=== PATIENT | male | born 1960 | race Caucasian/White ===

== ENCOUNTER 2016-11-20 16:22 | Observation (INO) ==
--- NOTE | 2016-11-20 16:52 | Emergency Department Note ---
Disposition Clinical Impression: Cellulitis of foot Disposition: Admitted As Inpatient Condition: Good Referrals: Jose G Leal MD [Primary Care Provider] - Forms: ED Satisfaction Letter Time of Disposition: 18:40 Extremity Problem HPI - General Chief complaint: ED Extremity Problem,Nontraumatic Stated complaint: right foot problem Time Seen by Provider: 11/20/16 16:41 Source: patient Mode of arrival: ambulatory Limitations: no limitations Nursing Notes Reviewed: Yes Vital Signs Reviewed: Yes - History of Present Illness HPI Narrative: 56-year-old whose had a partial amputation of the right foot who comes in with drainage and redness to the foot and ulceration on the sole of the foot. He spoke to Dr. Gomez who sent him in for evaluation. Pt Subjective Complaint: extremity pain, extremity swelling Onset (ago): hour(s) Consistency: constant Injury Location: right Pain Scale: 6 Improves with: nothing Worsens with: weight bearing - Related Data Home Medications Medication Instructions Recorded Confirmed Ibuprofen/Pseudoephedrine HCl 1 tab PO TID 12/27/15 05/22/16 [Advil Cold & Sinus Caplet] Lactose-Reduced Food [Ensure 1 bottle PO TID 12/27/15 05/22/16 Active Clear] Multivitamin [Multi-Day Vitamins] 1 each PO DAILY 01/10/16 05/22/16 Ibuprofen [Advil] 800 mg PO Q6H PRN 02/01/16 05/22/16 Linagliptin [Tradjenta] 5 mg PO DAILY 02/01/16 05/22/16 metFORMIN [Glucophage] 1,000 mg PO BIDWM 02/01/16 05/22/16 Gabapentin [Neurontin] 300 mg PO TID 05/15/16 05/22/16 Insulin Glargine [Lantus] 20 unit SQ HS 05/15/16 05/22/16 Previous Rx's Medication Instructions Recorded Insulin LISPRO [HumaLOG] 3 units SQ TIDWM #1 vial 01/04/16 Ferrous Sulfate 325 mg PO BIDWM #60 tablet 05/27/16 OxyCODONE/APAP 5/325 [Percocet 1 each PO Q6HR PRN #28 tablet 05/27/16 5/325 MG] Vancomycin HCl in Dextrose 5 % 1.25 gm IV Q12HR #1 mls 05/27/16 [Vancomycin-D5w 1.25 Gram/250Ml] Clindamycin HCl [Cleocin HCl] 300 mg PO TID #15 cap 08/09/16 Allergies Allergy/AdvReac Type Severity Reaction Status Date / Time No Known Allergies Allergy Verified 02/01/16 10:56 All systems ED: reviewed and negative except as stated. Constitutional: Denies: fever, chills, weakness, weight change Eyes: Denies: eye pain, eye discharge, vision change ENT ED: Denies: ear pain, throat pain, dental pain, hearing loss, epistaxis, congestion, dysphagia Cardiovascular: Denies: chest pain, palpitations, dyspnea on exertion, edema, syncope Respiratory: Denies: cough, dyspnea, wheezes, hemoptysis, stridor Gastrointestinal: Denies: abdominal pain, nausea, vomiting, diarrhea, constipation, hematemesis, melena, hematochezia Genitourinary: Denies: urgency, dysuria, frequency, hematuria Musculoskeletal: Denies: back pain, neck pain, arthralgia, myalgia Integumentary: Denies: rash, abrasion, lesions Neurological: Denies: headache, weakness, numbness, paresthesias, confusion, abnormal gait, vertigo Psychiatric: Denies: anxiety, depression, suicidal thoughts, homicidal thoughts , auditory hallucinations, visual hallucinations Endocrine: Denies: fatigue Hematological/Lymphatic: Denies: easy bleeding, easy bruising Allergic/Immunologic: Denies: facial swelling, urticaria Past Medical History - Past Medical History Medical history: Reports: diabetes, other Surgical history: Reports: other Psychiatric history: Reports: no psych history - Social History Smoking Status: Current every day smoker Smokeless Tobacco Status: No Alcohol use: Reports: none Drug use: Reports: none Physical Exam - General Limitations: no limitations General appearance: alert, in no apparent distress - Head Head exam: atraumatic, normocephalic, normal inspection - Eye Eye exam: Present: normal appearance, PERRL, EOMI - ENT ENT exam: normal exam - Neck Neck exam: Present: normal inspection, full ROM, trachea midline - Chest Chest inspection: Present: normal inspection, symmetric chest wall rise - Respiratory Respiratory exam: Present: normal lung sounds bilaterally - Cardiovascular Cardiovascular exam: Present: regular rate, normal rhythm, normal heart sounds - Abdominal Exam Abdominal exam: Present: soft, Non-Tender. Absent: tenderness, distention, guarding, rebound, rigidity - Expanded Lower Extremity Exam Foot/toe exam: Present: tenderness, swelling, erythema, other (Urgent ulceration on the sole of the foot with purulent drainage) Neurovascular/Tendon exam: Absent: pulse deficit Gait: antalgic - Back Exam Back exam: Present: normal inspection, full ROM. Absent: tenderness - Neurological Exam Neurological exam: Present: alert - Psychiatric Psychiatric exam: Present: normal affect, normal mood - Skin Skin exam: Present: warm, dry, intact, normal color Course - Reevaluation(s) Reevaluation #1: 56-year-old diabetic who has worsening pain in his foot with a large ulcer and the purulent drainage. White count is normal sedimentation rates elevated x-ray shows no osteo-consultation obtained with podiatry will start him on IV vancomycin and possible surgical intervention. Time: 18:39 - Consultations Consultation #1: Discussed with Dr. Gomez who wants the patient admitted and he will likely need surgical debridement Time: 17:52 Consultation #2: Discussed with Araceli Singer, it. Time: 18:38 Vital Signs Temperature 98.3 F 11/20/16 16:33 Pulse Rate 92 11/20/16 16:33 Respiratory Rate 16 11/20/16 16:33 Blood Pressure 130/66 11/20/16 16:33 O2 Sat by Pulse Oximetry 96 11/20/16 16:33 Temperature 98.3 F 11/20/16 16:33 Pulse Rate 92 11/20/16 16:33 Respiratory Rate 16 11/20/16 16:33 Blood Pressure 130/66 11/20/16 16:33 O2 Sat by Pulse Oximetry 96 11/20/16 16:33 Oxygen Delivery Oxygen Delivery Room Air Extremity Problem, Nontraumati - Lab Data Lab results reviewed: Yes I reviewed the patient's lab results. Result diagrams: 11/20/16 17:10 11/20/16 17:10 Lab Results 11/20/16 11/20/16 11/20/16 Range/Units 17:10 17:10 17:10 WBC 8.3 (4.3-11.1) K/mcL RBC 4.25 (4.19-5.50) M/mcL Hgb 13.4 (12.9-16.9) g/dL Hct 40.5 (37.5-50.1) % MCV 95.3 (83.0-100.0) fL MCH 31.5 (28.0-33.3) pg MCHC 33.1 (31.6-35.5) g/dL RDW 12.6 (11.5-14.5) % Plt Count 228 (140-400) K/mcL MPV 11.0 (9.4-12.4) fL Immature Gran % 0.5 (0-4) % Seg Neutrophils % 57.4 % Lymphocytes % 25.1 % Monocytes % 14.1 % Eosinophils % 2.5 % Basophils % 0.4 % Neutrophils # 4.8 (1.6-8.9) K/mcL Lymphocytes # 2.1 (0.6-4.6) K/mcL Monocytes # 1.2 (0.0-1.3) K/mcL Eosinophils # 0.2 (0.0-0.6) K/mcL Basophils # 0.0 (0.0-0.2) K/mcL ESR 40 H (0-10) mm/hr Sodium 139 (136-145) mEq/L Potassium 3.9 (3.5-4.5) mEq/L Chloride 103 (98-109) mEq/L Carbon Dioxide 32 H (19-29) mEq/L BUN 18 (8-26) mg/dL Creatinine 0.81 (0.72-1.25) mg/dL Est GFR ( Amer) > 60 (> 60) Est GFR (Non-Af Amer) > 60 (> 60) BUN/Creatinine Ratio 22 (6-26) Glucose 151 H (70-99) mg/dL Calculated Osmolality 293 (280-300) Calcium 9.7 (8.6-10.8) mg/dL - Radiology Data Radiology results reviewed: Yes I reviewed the patient's radiology results. Foot X-Ray 11/20/16 16:50 IMPRESSION: No evidence of current osteomyelitis. Postsurgical changes are unchanged. D/ / Abel Diaz MD / Abel Diaz MD Interpreting Provider: Abel Diaz MD
[2016-11-20 17:41] LABS: Basophils % 0.4 %; Eosinophils # 0.2 K/mcL (0.0-0.6); Eosinophils % 2.5 %; Hematocrit 40.5 % (37.5-50.1); Hemoglobin 13.4 g/dL (12.9-16.9); Immature Granulocytes % 0.5 % (0-4); Lymphocytes # 2.1 K/mcL (0.6-4.6); Lymphocytes % 25.1 %; Mean Corpuscular HGB Conc 33.1 g/dL (31.6-35.5); Mean Corpuscular Hemoglobin 31.5 pg (28.0-33.3); Mean Corpuscular Volume 95.3 fL (83.0-100.0); Monocytes # 1.2 K/mcL (0.0-1.3); Monocytes % 14.1 %; Neutrophils # 4.8 K/mcL (1.6-8.9); Platelet Count 228 K/mcL (140-400); Red Blood Count 4.25 M/mcL (4.19-5.50); Red Cell Distribution Width 12.6 % (11.5-14.5); Segmented Neutrophils % 57.4 %
[2016-11-20 17:52] LABS: BUN/Creatinine Ratio 22 (6-26); Blood Urea Nitrogen 18 mg/dL (8-26); Calcium 9.7 mg/dL (8.6-10.8); Carbon Dioxide 32 mEq/L (19-29); Chloride 103 mEq/L (98-109); Glucose 151 mg/dL (70-99); Osmolality,Calculated 293 (280-300); Potassium 3.9 mEq/L (3.5-4.5); Sodium 139 mEq/L (136-145); eGFR For African Americans > 60 (> 60); eGFR For Non-African Americans > 60 (> 60)
[2016-11-20] MEDS ORDERED: Vancomycin 1,000 MG in D5% in Water 250 ML IVPB ONE (18:38)
[2016-11-21] MEDS ORDERED: *HR* Morphine 2 MG/ML SYRINGE IVP PRN (00:03)
[2016-11-21] MEDS: *HR* HYDROcodone/Acet 5/325 mg TABLET PO PRN ×2 (00:33→15:07)
[2016-11-21] MEDS ORDERED: 0.9 % Sodium Chloride 1,000 ML ONE (04:18)
[2016-11-21] MEDS ORDERED: *HR* Dextrose 50 % in Water (Syg) 50 ML SYRINGE IVP PRN (06:11)
[2016-11-21] MEDS ORDERED: D5% in Water 1,000 ML IVC PRN (06:11)
[2016-11-21] MEDS ORDERED: Dextrose Gel 15 GM PO PRN ×2 (06:11)
[2016-11-21] MEDS ORDERED: Acetaminophen 325 MG TABLET PO PRN (06:13)
[2016-11-21] MEDS ORDERED: Ondansetron 4 MG/2 ML VIAL IVP PRN (06:13)
[2016-11-21] MEDS ORDERED: 0.9 % Sodium Chloride 1,000 ML IVC SCH (06:15)
[2016-11-21] MEDS ORDERED: *HR* Heparin 5,000 UNIT/ML VIAL SQ SCH (06:15)
[2016-11-21 06:40] LABS: Alanine Aminotransferase 15 Units/L (0-55); Albumin 3.1 g/dL (3.5-5.0); Alkaline Phosphatase 67 Units/L (38-126); Aspartate Amino Transferase 16 Units/L (5-34); BUN/Creatinine Ratio 14 (6-26); Bilirubin,Total 0.5 mg/dL (0.2-1.2); Blood Urea Nitrogen 12 mg/dL (8-26); Carbon Dioxide 29 mEq/L (19-29); Chloride 103 mEq/L (98-109); Globulin 3.2 g/dL (2.4-3.5); Glucose 206 mg/dL (70-99); Magnesium 1.7 mg/dL (1.6-2.6); Osmolality,Calculated 288 (280-300); Potassium 3.8 mEq/L (3.5-4.5); Sodium 136 mEq/L (136-145); Total Protein 6.3 g/dL (6.0-8.3); eGFR For African Americans > 60 (> 60); eGFR For Non-African Americans > 60 (> 60)
[2016-11-21 06:47] LABS: Activated Partial Thrombo Time 58.2 Seconds (26.0-36.0); Prothrombin Time 10.6 Seconds (9.4-12.1)
[2016-11-21 06:51] LABS: Basophils % 0.3 %; Eosinophils # 0.3 K/mcL (0.0-0.6); Hematocrit 36.5 % (37.5-50.1); Hemoglobin 12.2 g/dL (12.9-16.9); Immature Granulocytes % 0.4 % (0-4); Lymphocytes # 1.8 K/mcL (0.6-4.6); Lymphocytes % 23.6 %; Mean Corpuscular HGB Conc 33.4 g/dL (31.6-35.5); Mean Corpuscular Hemoglobin 32.1 pg (28.0-33.3); Mean Corpuscular Volume 96.1 fL (83.0-100.0); Mean Platelet Volume 11.5 fL (9.4-12.4); Monocytes # 1.1 K/mcL (0.0-1.3); Monocytes % 15.2 %; Neutrophils # 4.3 K/mcL (1.6-8.9); Platelet Count 198 K/mcL (140-400); Red Cell Distribution Width 12.7 % (11.5-14.5); Segmented Neutrophils % 56.5 %
[2016-11-21] MEDS ORDERED: Vancomycin 1,000 MG in D5% in Water 250 ML IVPB SCH ×2 (07:00)
[2016-11-21] MEDS: Insulin LISPRO 300 UNITS/3 ML VIAL SQ SCH ×2 (07:04→12:08)
[2016-11-21] MEDS ORDERED: Piperacillin/Tazobactam 3.375 GM in D5% in Water (Mini-Bag+) 100 ML IVPB SCH (08:00)
[2016-11-21 09:52] LABS: Hemoglobin A1C 6.3 %
[2016-11-21] MEDS ORDERED: *HR* OxyCODONE/APAP 5/325 TABLET PO PRN (12:18)
[2016-11-21] MEDS ORDERED: (Linagliptin [Tradjenta] 5 MG) PO SCH (12:30)
[2016-11-21] MEDS ORDERED: Gabapentin 300 MG CAPSULE PO SCH (15:00)
[2016-11-21 15:29] VITALS: BP 123/85
--- NOTE | 2016-11-21 16:01 | Podiatry Consult Note ---
Date of Encounter: 11/21/16 Time of Encounter: 07:00 Assessment and Plan (1) Cellulitis Current visit: No Status: Acute Assessment: #1 diabetic foot ulcer with associated cellulitis of the right foot and leg #2 diabetes with neuropathy #3 multiple comorbidities as outlined in history #4 Cellulitis essentially resolved with 24 hours of intravenous antibiotics. Wound is clean and dry without evidence of necrosis or regression. Plan: #1 we will maintain antibiotic therapy for 14 days postdischarge with oral agents #2 begin wound care with Santyl ointment after cleansing ulcer with soap and water. Apply Santyl twice a day under a dry sterile dressing and use Darco offloading shoe #3 follow-up wound care clinic within 5 days of discharge next November 27 Qualifiers: Site of cellulitis: extremity Site of cellulitis of extremity: lower extremity Laterality: right Qualified Code(s): L03.115 - Cellulitis of right lower limb History of Present Illness Chief complaint: Foot ulcer right HPI: Mr. Escobar is a 56 year old male who contacted my office earlier in the day on November 20. He stated he had a wound on his right foot with increasing redness and drainage he was instructed to present to the wound care clinic yesterday he did not he proceeded to the emergency department from where he was admitted for intravenous antibiotics because of obvious cellulitis and diabetic foot ulcer. Given his history of previous amputation of #1 toe number to tell with the right foot certainly is high risk for complication and limb loss. The patient states that his foot was red for at least a week prior to presenting. He did not complain of chest pain nausea vomiting fever or chills but certainly with his medical history warrants admission because of the wound and its associated infectious process. Past Med Surg Social Fam HX - Past Medical History Medical history: diabetes, other Psychiatric history: no psych history - Past Surgical History Surgical History: other (Amputation of toe #1 and 2 and respective metatarsals) - Social History Smoking Status: Current every day smoker Smokeless Tobacco Status: No Alcohol use: none Drug use: none - Family History Mother Name: jacklyn escobar Living Status: Age at : 83 Cause of : infection Hx Family Cardiac Disorders: Yes Hx Family Cancer: Yes (skin cancer) Hx Family Endocrine Disorder: Yes Medications and Allergies Ibuprofen/Pseudoephedrine HCl [Advil Cold & Sinus Caplet] 1 tab PO TID PRN 12/26 [History] Multivitamin [Multi-Day Vitamins] 1 each PO DAILY 01/10/16 [History] Linagliptin [Tradjenta] 5 mg PO DAILY 02/01/16 [History] metFORMIN [Glucophage] 500 mg PO BIDWM 02/01/16 [History] Gabapentin [Neurontin] 300 mg PO TID 05/15/16 [History] Insulin Glargine [Lantus] 12 unit SQ HS 05/15/16 [History] OxyCODONE/APAP 5/325 [Percocet 5/325 MG] 1 each PO Q6HR PRN #28 tablet 05/27/16 [Rx] Insulin ASPART [NovoLOG] 0 unit SQ TIDWM 11/20/16 [History] Lactose-Reduced Food [Ensure High Protein] 1 bottle PO TIDWM 11/20/16 [History] Amoxicillin/Clavulanate [Augmentin] 875 mg PO BIDWM #20 tablet 11/21/16 [Rx] Allergies No Known Allergies Allergy (Verified 02/01/16 10:56) All Systems Reviewed: A 10-system review of systems was performed and is negative for pertinent findings except as documented above in the HPI. Review of systems: Patient does not complain of nausea vomiting fever chills, no bowel or bladder dysfunction, no chest pain or shortness of breath. Physical Exam - Constitutional Vitals: Temp Pulse Resp BP Pulse Ox 97.9 F 67 14 123/85 96 11/21/16 15:24 11/21/16 15:24 11/21/16 15:24 11/21/16 15:24 11/21/16 15:24 General appearance: average body habitus, no acute distress - Eye Eye exam: Present: PERRL - Cardiovascular Additional comments: Pedal pulses are palpable but diminished 1/4 DP and PT bilaterally. Skin warm to touch. No cyanosis of digits no pallor and elevation of rubor on dependency and no gross edema. - Extremities Exam Additional comments: History of amputation of toe #1 #2 with respective metatarsals. We see prominent third metatarsal with associated superficial ulceration on the plantar aspect of the third MTPJ. Cellulitis is resolving dramatically with the use of intravenous antibiotics. - Neurological Exam Additional comments: Loss of protective sensation from toes to tibia bilaterally. Loss of epicritic sensation loss of vibratory sensation secondary to diabetes. No spasticity no rigidity no flaccidity. Babinski's absent clonus is negative. DTR Achilles and patella are equal and symmetrical graded 0/4 - Skin Additional comments: We observe a superficial ulceration measuring approximately 2.5 cm in length 2.0 cm in width 0.2 cm in depth dry hyperkeratotic lesion with resolving erythema periwound tissue. Edema has resolved.. Wound with no tunneling or sinus tract no undermining. No odor no purulence no necrosis no ascending lymphangitis Results - Labs Result Diagrams: 11/21/16 05:08 11/21/16 05:08 Labs: Abnormal lab results RBC 3.80 M/mcL (4.19-5.50) L 11/21/16 05:08 Hgb 12.2 g/dL (12.9-16.9) L 11/21/16 05:08 Hct 36.5 % (37.5-50.1) L 11/21/16 05:08 ESR 40 mm/hr (0-10) H 11/20/16 17:10 APTT 58.2 Seconds (26.0-36.0) H 11/21/16 05:08 Glucose 206 mg/dL (70-99) H 11/21/16 05:08 POC Glucose 203 (58-89) H 11/20/16 20:22 Hemoglobin A1c 6.3 % (-5.6) H 11/21/16 05:08 Albumin 3.1 g/dL (3.5-5.0) L 11/21/16 05:08 Albumin/Globulin Ratio 1.0 (1.1-2.2) L 11/21/16 05:08 H & H 11/21/16 Range/Units 05:08 Hgb 12.2 L (12.9-16.9) g/dL Hct 36.5 L (37.5-50.1) % All other labs normal. - Diagnostic results Ankle/Foot x-ray: image reviewed Consult Discharge Plan - Plan Additional Instructions: #1 cleansing right foot wound with soap and water twice a day #2 apply Santyl ointment to wound cover with 4 x 4 and Kerlix twice a day #3 use Darco offloading shoe at all times #4 take all antibiotics as prescribed #5 follow-up with Dr. Gomez wound care clinic 11/27/2016 Referrals: Jose G Leal MD [Primary Care Provider] - Prescriptions: Amoxicillin/Clavulanate [Augmentin] 875 mg PO BIDWM #20 tablet
--- NOTE | 2016-11-21 16:19 | Discharge Summary ---
Date of Encounter: 11/21/16 Time of Encounter: 16:17 - Discharge Diagnosis (1) Cellulitis Priority: Primary Status: Acute Qualifiers: Site of cellulitis: extremity Site of cellulitis of extremity: lower extremity Laterality: right Qualified Code(s): L03.115 - Cellulitis of right lower limb - Discharge Medications Prescriptions: Amoxicillin/Clavulanate [Augmentin] 875 mg PO BIDWM #20 tablet Home Medications: Ibuprofen/Pseudoephedrine HCl [Advil Cold & Sinus Caplet] 1 tab PO TID PRN 12/26 [History] Multivitamin [Multi-Day Vitamins] 1 each PO DAILY 01/10/16 [History] Linagliptin [Tradjenta] 5 mg PO DAILY 02/01/16 [History] metFORMIN [Glucophage] 500 mg PO BIDWM 02/01/16 [History] Gabapentin [Neurontin] 300 mg PO TID 05/15/16 [History] Insulin Glargine [Lantus] 12 unit SQ HS 05/15/16 [History] OxyCODONE/APAP 5/325 [Percocet 5/325 MG] 1 each PO Q6HR PRN #28 tablet 05/27/16 [Rx] Insulin ASPART [NovoLOG] 0 unit SQ TIDWM 11/20/16 [History] Lactose-Reduced Food [Ensure High Protein] 1 bottle PO TIDWM 11/20/16 [History] Amoxicillin/Clavulanate [Augmentin] 875 mg PO BIDWM #20 tablet 11/21/16 [Rx] Allergies/Adverse Reactions: Allergies No Known Allergies Allergy (Verified 02/01/16 10:56) Labs on day of discharge: Labs from last 24 hours 11/21/16 11/21/16 11/21/16 05:08 05:08 05:08 WBC RBC Hgb Hct MCV MCH MCHC RDW Plt Count MPV Immature Gran % Seg Neutrophils % Lymphocytes % Monocytes % Eosinophils % Basophils % Neutrophils # Lymphocytes # Monocytes # Eosinophils # Basophils # PT 10.6 INR 1.0 APTT 58.2 H Sodium 136 Potassium 3.8 Chloride 103 Carbon Dioxide 29 BUN 12 Creatinine 0.84 Est GFR ( Amer) > 60 Est GFR (Non-Af Amer) > 60 BUN/Creatinine Ratio 14 Glucose 206 H POC Glucose Est Mean Plasma Glucose 134 Hemoglobin A1c 6.3 H Calculated Osmolality 288 Calcium 9.0 Magnesium 1.7 Total Bilirubin 0.5 AST 16 ALT 15 Alkaline Phosphatase 67 Serum Total Protein 6.3 Albumin 3.1 L Globulin 3.2 Albumin/Globulin Ratio 1.0 L 11/21/16 11/20/16 05:08 20:22 WBC 7.5 RBC 3.80 L Hgb 12.2 L Hct 36.5 L MCV 96.1 MCH 32.1 MCHC 33.4 RDW 12.7 Plt Count 198 MPV 11.5 Immature Gran % 0.4 Seg Neutrophils % 56.5 Lymphocytes % 23.6 Monocytes % 15.2 Eosinophils % 4.0 Basophils % 0.3 Neutrophils # 4.3 Lymphocytes # 1.8 Monocytes # 1.1 Eosinophils # 0.3 Basophils # 0.0 PT INR APTT Sodium Potassium Chloride Carbon Dioxide BUN Creatinine Est GFR ( Amer) Est GFR (Non-Af Amer) BUN/Creatinine Ratio Glucose POC Glucose 203 H Est Mean Plasma Glucose Hemoglobin A1c Calculated Osmolality Calcium Magnesium Total Bilirubin AST ALT Alkaline Phosphatase Serum Total Protein Albumin Globulin Albumin/Globulin Ratio Date of admission: 11/20/16 19:01 Primary care physician: Jose G Leal Consults: 11/21/16 06:17 Consult to Vacuum Technician [CONS] Routine Comment: Reason for Consult: . Discharging clinician: yDlon Gomez Anticipated date of discharge: 11/21/16 - Patient Status Disposition: Home, Self-Care Condition: Good Functional capacity at discharge: independent ambulation (Must use OrthoWedge shoe to ambulate) Overall status at discharge: patient is progressing back to baseline - Discharge Instructions Follow Up With: Jose G Leal MD [Primary Care Provider] - Additional Instructions: #1 cleansing right foot wound with soap and water twice a day #2 apply Santyl ointment to wound cover with 4 x 4 and Kerlix twice a day #3 use Darco offloading shoe at all times #4 take all antibiotics as prescribed #5 follow-up with Dr. Gomez wound care clinic 11/27/2016 - Diet and Activity Activity: return to work once cleared by your PCP/specialist Diet: diabetic diet - Hospital Course Hospital course: Mr. Escobar is a 56 year old male - Time Spent with Patient Total time spent providing and/or coordinating discharge services: Less than 30 minutes Specific discharge activities: Must use OrthoWedge shoe at all times to ambulate
--- NOTE | 2016-11-21 16:22 | Event Note ---
Date of Encounter: 11/21/16 Time of Encounter: 16:20 Pt did refuse to see any hospitalist. He wanted to seen by fellmongery worker Dr. Gomez only. Spoke to Dr. Gomez, who is discharging this pt right now.
[2016-11-21] MEDS ORDERED: Aminoglycoside Consult 1 EACH MC ONE (16:46)
[2016-11-21] MEDS ORDERED: NON-FORMULARY MEDICATION 1 EACH EACH (Lactose-Reduced Food [Ensure High Protein] 1 BOTTLE) PO SCH (17:00)
[2016-11-21] MEDS ORDERED: Insulin DETEMIR 100 UNIT/ML X5UNITS SQ SCH ×2 (21:00)
== END 2016-11-21 16:47 | disposition home or self-care (01) ==
LOC: EMEROO 16:22 → 3NENU 16:22
PROVIDERS: ADMIT Nurse Practitioner Family; ATTEND Family Medicine

== ENCOUNTER 2016-12-25 15:20 | Inpatient (IN) ==
[2016-12-25] MEDS ORDERED: Vancomycin 1,000 MG in D5% in Water 250 ML IVPB ONE (15:54)
[2016-12-25] MEDS ORDERED: Piperacillin/Tazobactam 3.375 GM in D5% in Water (Mini-Bag+) 100 ML IVPB ONE (15:54)
[2016-12-25] MEDS ORDERED: 0.9 % Sodium Chloride 1,000 ML IVC ONE (15:56)
[2016-12-25 16:17] LABS: Basophils # 0.1 K/mcL (0.0-0.2); Basophils % 0.4 %; Eosinophils # 0.1 K/mcL (0.0-0.6); Hematocrit 35.6 % (37.5-50.1); Hemoglobin 11.7 g/dL (12.9-16.9); Immature Granulocytes % 0.4 % (0-4); Lymphocytes # 1.7 K/mcL (0.6-4.6); Lymphocytes % 13.4 %; Mean Corpuscular HGB Conc 32.9 g/dL (31.6-35.5); Mean Corpuscular Hemoglobin 31.6 pg (28.0-33.3); Mean Corpuscular Volume 96.2 fL (83.0-100.0); Mean Platelet Volume 10.1 fL (9.4-12.4); Monocytes # 1.3 K/mcL (0.0-1.3); Monocytes % 10.4 %; Neutrophils # 9.4 K/mcL (1.6-8.9); Platelet Count 316 K/mcL (140-400); Red Cell Distribution Width 12.7 % (11.5-14.5); Segmented Neutrophils % 74.4 %
--- NOTE | 2016-12-25 16:23 | Emergency Department Note ---
Disposition Clinical Impression: Cellulitis of foot, right Wound, open, foot Qualifiers: Encounter type: initial encounter Laterality: right Qualified Code(s): S91.301A - Unspecified open wound, right foot, initial encounter Disposition: Admitted As Inpatient Condition: Fair Time of Disposition: 17:11 General Adult HPI - General Chief complaint: ED Extremity Injury, Lower Stated complaint: Right foot problem Time Seen by Provider: 12/25/16 15:29 Source: patient Limitations: no limitations Nursing Notes Reviewed: Yes Vital Signs Reviewed: Yes - History of Present Illness HPI Narrative: Patient is a 56-year-old male with a past medical history of diabetes and neuropathy of his right foot with a history of toe amputation, gangrene infection and debridement of the right foot. He presents today with worsening of the wound on the plantar aspect of his right foot. He states he follows along with Dr. Gomez with podiatry for this for issue and he gets his wound cleaned and dressed once a week by his office. He states they were expecting part of his bone to come through the skin on his foot and he has a scheduled surgery for a week from this . The patient states however, he was walking tonight and he felt the bone popped in the skin on the bottom aspect of his foot so he called the office of Dr. Gomez and they recommended that he come to the emergency department for IV antibiotics. Patient denies any fevers or chills. He does have a open wound on the bottom right aspect of his foot with some white to yellow drainage and the patient states the bone is painful. He also has some redness and swelling over the dorsal aspect of the foot and also right calf swelling and pain on the right leg. Pain Scale: 9 - Related Data Home Medications Medication Instructions Recorded Confirmed Ibuprofen/Pseudoephedrine HCl 1 tab PO TID PRN 12/27/15 12/25/16 [Advil Cold & Sinus Caplet] Multivitamin [Multi-Day Vitamins] 1 each PO DAILY 01/10/16 12/25/16 Linagliptin [Tradjenta] 5 mg PO DAILY 02/01/16 12/25/16 metFORMIN [Glucophage] 500 mg PO BIDWM 02/01/16 12/25/16 Gabapentin [Neurontin] 300 mg PO TID 05/15/16 12/25/16 Insulin Glargine [Lantus] 20 unit SQ HS 05/15/16 12/25/16 Insulin ASPART [NovoLOG] 0 unit SQ TIDWM 11/20/16 12/25/16 Lactose-Reduced Food [Ensure High 1 bottle PO TIDWM 11/20/16 12/25/16 Protein] Allergies Allergy/AdvReac Type Severity Reaction Status Date / Time No Known Allergies Allergy Verified 02/01/16 10:56 All systems ED: reviewed and negative except as stated. Constitutional: Denies: fever, chills Cardiovascular: Denies: chest pain, palpitations, dyspnea on exertion Respiratory: Denies: cough, dyspnea, wheezes Past Medical History - Past Medical History Medical history: Reports: diabetes, other Surgical history: Reports: other Psychiatric history: Reports: no psych history - Social History Smoking Status: Current every day smoker Smokeless Tobacco Status: No Alcohol use: Reports: occasionally Drug use: Reports: none Physical Exam Patient is in no acute distress. He is sitting in the bed comfortably with his foot and a dressing and post-op shoe. - General Limitations: no limitations General appearance: alert, in no apparent distress - Head Head exam: atraumatic, normocephalic - Eye Eye exam: Present: normal appearance, PERRL - ENT ENT exam: normal exam, normal oropharynx, mucous membranes moist - Neck Neck exam: Present: normal inspection, full ROM - Chest Chest inspection: Present: normal inspection, symmetric chest wall rise - Respiratory Respiratory exam: Present: normal lung sounds bilaterally. Absent: respiratory distress - Cardiovascular Cardiovascular exam: Present: regular rate, normal rhythm, normal heart sounds - Abdominal Exam Abdominal exam: Present: soft, Non-Tender, normal bowel sounds - Extremities Exam Extremities exam: Present: full ROM, calf tenderness (right LE) - Expanded Lower Extremity Exam Foot/toe exam: Present: other (Patient has no first and second toe on his right foot due to a palpitation secondary to gangrene infection one year ago. The patient has erythema over the dorsal aspect of his right foot with swelling and warmth to touch. On the palmar aspect of his foot near the distal aspect of the middle metatarsal the patient has a opening that is the size of a quarter. The opening is surrounded by erythema and does appear to have some white to yellow drainage. There is also obvious bone at the base of the wound. The patient also has right calf tenderness and swelling.) - Back Exam Back exam: Present: normal inspection, full ROM. Absent: tenderness - Neurological Exam Neurological exam: Present: alert, oriented X3 - Psychiatric Psychiatric exam: Present: normal affect, normal mood - Skin Skin exam: Present: warm, dry, intact (Except as noted in the foot exam.) Course Course Narrative: Patient has a history of neuropathy with bone debridement infection one year ago. He presents today with complaint of his bone breaking through the skin on the dorsal aspect of his right foot. He talked with Dr. Del Angel office prior to arrival and he recommended the patient come in for IV antibiotics and admission. - Reevaluation(s) Reevaluation #1: I discussed with the patient the plan to treat him with IV antibiotics and have him admitted to the hospital for further follow-up with Dr. Gomez. Patient agrees with the plan. Time: 17:00 Reevaluation #2: I spoke with Hermila Ward with hospitalist and she agrees to admit the patient. She requests I order a lactic acid which she will follow up with once the patient is admitted. Time: 18:13 Vital Signs Temperature 98.3 F 12/25/16 15:21 Pulse Rate 83 12/25/16 15:21 Respiratory Rate 18 12/25/16 15:21 Blood Pressure 117/61 12/25/16 15:21 O2 Sat by Pulse Oximetry 99 12/25/16 15:21 Temperature 98.2 F 12/25/16 20:02 Pulse Rate 70 12/25/16 20:02 Respiratory Rate 16 12/25/16 20:02 Blood Pressure 115/61 12/25/16 20:02 O2 Sat by Pulse Oximetry 98 12/25/16 20:02 Oxygen Delivery Oxygen Delivery Room Air Medical Decision Making - Medical Records Medical records reviewed: Yes I reviewed the patient's medical records. - Lab Data Lab results reviewed: Yes I reviewed the patient's lab results. Result diagrams: 12/25/16 16:06 Lab Results 12/25/16 12/25/16 Range/Units 16:06 16:06 WBC 12.6 H (4.3-11.1) K/mcL RBC 3.70 L (4.19-5.50) M/mcL Hgb 11.7 L (12.9-16.9) g/dL Hct 35.6 L (37.5-50.1) % MCV 96.2 (83.0-100.0) fL MCH 31.6 (28.0-33.3) pg MCHC 32.9 (31.6-35.5) g/dL RDW 12.7 (11.5-14.5) % Plt Count 316 (140-400) K/mcL MPV 10.1 (9.4-12.4) fL Immature Gran % 0.4 (0-4) % Seg Neutrophils % 74.4 % Lymphocytes % 13.4 % Monocytes % 10.4 % Eosinophils % 1.0 % Basophils % 0.4 % Neutrophils # 9.4 H (1.6-8.9) K/mcL Lymphocytes # 1.7 (0.6-4.6) K/mcL Monocytes # 1.3 (0.0-1.3) K/mcL Eosinophils # 0.1 (0.0-0.6) K/mcL Basophils # 0.1 (0.0-0.2) K/mcL ESR 115 H (0-10) mm/hr - Radiology Data Radiology results reviewed: Yes I reviewed the patient's radiology results. Foot X-Ray 12/25/16 15:46 IMPRESSION: 1. Status post amputation of the 1st and 2nd digits as described. No complication. Specifically, no obvious soft tissue injury to explain the patient's symptoms. 2. No acute osseous abnormality. 3. Prominent heel spur. D/ / Sheyla Aj MD / Sheyla Aj MD Interpreting Provider: Sheyla Aj MD Attestation Statement - Attestation Attestation: I examined this patient and my medical decision-making was reviewed with the Resident Physician. I agree with the documented findings, disposition and treatment plan as described except to the extent set forth below. Male patient with evidence of bony erosion of his foot. He does have evidence of bone exposure on the sole of his foot. There is concern for possible underlying osteomyelitis. The patient was sent in for IV antibiotics by podiatry. Antibiotics were initiated. There is no evidence of sepsis at this time. X- ray shows no evidence of osteomyelitis. The patient will be admitted for further evaluation after initiation of antibiotics and for podiatry consultation.
[2016-12-25] MEDS ORDERED: *HR* HYDROmorphone (PF) 1 MG/ML SYRINGE IVP ONE (16:45)
[2016-12-25] MEDS ORDERED: Ondansetron 4 MG/2 ML VIAL IVP ONE (16:46)
[2016-12-25] MEDS ORDERED: Aminoglycoside Consult 1 EACH MC ONE (18:12)
[2016-12-25] MEDS ORDERED: Naloxone 0.4 MG/ML INJ IVP PRN (18:52)
[2016-12-25] MEDS ORDERED: Acetaminophen 325 MG TABLET PO PRN (18:52)
[2016-12-25] MEDS ORDERED: Ondansetron 4 MG/2 ML VIAL IVP PRN (18:52)
--- NOTE | 2016-12-25 19:18 | Internal Med History&Physical ---
<Brad Zamora - Last Filed: 12/25/16 20:54> Date of Encounter: 12/25/16 Time of Encounter: 18:00 Assessment and Plan (1) Foot ulcer Current visit: Yes Status: Acute Patient presents with acute worsening of diabetic ulcer of the right foot with progressive ulceration of the plantar aspect of the third metatarsophalangeal joint with exposure of the joint. Dr. Gomez recommended antibiotic coverage based on wound presentation and bone exposure and likely transmetatarsal amputation at the juncture. IV Zosyn 3.375 gm ordered Q8 and IV vancomycin with pharmacy dosing ordered for infection coverage. Stair-step pain medication ordered for pain management. Wound/tissue culture may be obtained during debridement and/or surgical intervention. Patient to be monitored for increasing signs of infection and/or sepsis through follow-up labs. Qualifiers: Laterality: right Non-pressure ulcer stage: with necrosis of bone Qualified Code(s): L97.514 - Non-pressure chronic ulcer of other part of right foot with necrosis of bone (2) Osteomyelitis of foot, right, acute Current visit: Yes Status: Acute Patient presents with acute osteomyelitis of the right foot. Patient was being seen today for wound care and sent to the ED by Dr. Gomez for antibiotic coverage based on wound presentation and bone exposure. Patient states his pain is currently 9/10 and he is experiencing bone and tissue pain in the right foot as well as pain and swelling in the right calf. IV Zosyn 3.375 gm ordered Q8 and IV vancomycin with pharmacy dosing ordered for infection coverage. Stair- step pain medication ordered for pain management. Wound/tissue culture may be obtained during debridement and/or surgical intervention. Consult placed to Dr. Gomez. (3) Anemia of chronic disease Current visit: Yes Status: Acute Patient presents with acute on chronic anemia. Patient's current Hgb was 11.7 and Hct was 35.6 on admission. Previous H/H on 11/20/16 was 13.4 and 40.5 respectively. H/H ordered for a.m. labs and we will monitor patient while inpatient. (4) Tobacco abuse counseling Current visit: Yes Status: Acute Patient presents with history of chronic abuse reportedly smoking 1 PPD. Patient counseled on the benefits of smoking cessation and the importance of quitting regarding blood circulation as related to his current diabetic wounds and healing. Patient acknowledged understanding of the counseling and requested 21 mg nicotine patch daily. Time spent counseling patient 9 minutes. (5) Diabetes Current visit: Yes Status: Chronic Patient presents with history of chronic diabetes. Previous A1c was 6.3. Blood glucose monitoring Q6 due to NPO at midnight status for possible surgical intervention tomorrow. Will continue patient's insulin and add low-dose correction insulin sliding scale and hypoglycemia protocol. Qualifiers: Diabetes mellitus type: type 2 Diabetes mellitus complication status: with skin complications Diabetes mellitus complication detail: with foot ulcer Diabetes mellitus long-term insulin use: with intermediate project manager use Qualified Code(s) : E11.621 - Type 2 diabetes mellitus with foot ulcer; L97.509 - Non-pressure chronic ulcer of other part of unspecified foot with unspecified severity; Z79.4 - terminal manager (current) use of insulin (6) DVT prophylaxis Current visit: Yes Status: Acute Patient to be placed on DVT prophylaxis due to current admission protocol and bed rest status. Heparin 5,000 units SQ Q12 ordered. Internal Medicine - H&P: HPI Chief complaint: Diabetic foot wound of right foot Admitted From: Emergency Dept Plans for Post Hospital Care: Home History of present illness: Mr. Escobar is a 56 year old male who presents from the ED with chief complaint of foot pain and swelling related to a diabetic foot wound of his right foot on the plantar region. Patient reports that he is currently followed by Dr. Gomez for this wound who dresses and cleans it once a week. Patient presented for wound care today and Dr. Gomez recommended he come to the ED based on the presentation of the wound with bone exposure and receive IV antibiotics. Patient 's current medical history includes diabetes with insulin dependency. Mr. Escobar denies recent illness, fever, chills, nausea, vomiting, abdominal pain, headache , chest pain, shortness of breath, pre-syncope, or syncope. Patient reports pain on the plantar aspect of the foot as well as erythema and edema to the dorsal aspect and right calf. He rates his pain at a 9/10. Wound is currently draining yellow fluid. Patient states that he was supposed to have surgery next for this wound. Consult to Dr. Gomez placed. IV Zosyn and vancomycin administered in the ED and will be continued. Venous Doppler ordered of the right leg. Patient's WBC on admission is 12.6 but does not meet SIRS criteria based on temperature of 98.3F, RR of 18, HR of 83, and BP of 117/61. Mr. Escobar is at moderate risk for sepsis and increased infection based on current symptoms and history and will be placed as observation status. IV antibiotics were administered in the ED prior to having blood cultures drawn, so tissue cultures will be ordered at time of debridement and/or surgical intervention. Patient to be monitored closely for signs of increasing infection through follow -up labs. Time spent with patient >40 minutes. Past Med Surg Social Fam HX - Past Medical History Source: patient Medical history: diabetes, other Psychiatric history: no psych history - Past Surgical History Surgical History: other (Amputation of right great toe and first digit.) - Social History Smoking Status: Current every day smoker Packs per day: 1 PPD Smokeless Tobacco Status: No Alcohol use: occasionally Drug use: none Current living situation: Home, With Family Activity Level: Independent ambulation Recent Out of Country Travel Within the Last 8 Weeks: No Exposure or Possible Exposure to Illness During Travel: No - Family History Mother Race: Family Member Ethnicity: Non- Living Status: Age at : 83 Cause of : Cancer Hx Family Cardiac Disorders: Yes (HD) Hx Family Respiratory Disorders: Yes Hx Family Cancer: Yes (Melanoma) Hx Family Endocrine Disorder: Yes (DM, Thyroid disease) Hx Family Neuromuscular Disorders: No Hx Family Neurologic Disorders: No Hx Family HEENT Disorders: No Hx Family Autoimmune Disorders: No Father Race: Family Member Ethnicity: Non- Living Status: Age at : 83 Cause of : DC Hx Family Cardiac Disorders: Yes (DC, HD) Hx Family Cancer: Yes (Leukemia) Brother Race: Family Member Ethnicity: Non- Living Status: Age at : 58 Cause of : Cancer Hx Family Cancer: Yes (Unknown) Sister Race: Family Member Ethnicity: Non- Living Status: Age at : 55 Cause of : Breast cancer with metastases to the brain Hx Family Cancer: Yes (Breast, Brain) Internal Medicine - H&P: Meds Ibuprofen/Pseudoephedrine HCl [Advil Cold & Sinus Caplet] 1 tab PO TID PRN 12/26 [History] Multivitamin [Multi-Day Vitamins] 1 each PO DAILY 01/10/16 [History] Linagliptin [Tradjenta] 5 mg PO DAILY 02/01/16 [History] metFORMIN [Glucophage] 500 mg PO BIDWM 02/01/16 [History] Gabapentin [Neurontin] 300 mg PO TID 05/15/16 [History] Insulin Glargine [Lantus] 20 unit SQ HS 05/15/16 [History] Insulin ASPART [NovoLOG] 0 unit SQ TIDWM 11/20/16 [History] Lactose-Reduced Food [Ensure High Protein] 1 bottle PO TIDWM 11/20/16 [History] No Known Allergies Allergy (Verified 02/01/16 10:56) All Systems PM: A 10-system review of systems was performed and is negative for pertinent findings except as documented above in the HPI. - Constitutional Constitutional: no chills, no fever(s), no night sweats - EENT Eyes: no change in vision, no discharge, no pain, no photophobia Ears: no ear discharge, no ear pain, no tinnitus Nose, mouth and throat: no dysphagia, no nasal discharge, no neck pain, no sore throat - Breasts Breasts: as per HPI - Cardiovascular Cardiovascular ROS IM: no chest pain, no diaphoresis, no dyspnea, no lightheadedness, no palpitations, no syncope - Respiratory Respiratory: no cough, no dyspnea, no wheezing, no excessive phlegm production - Gastrointestinal Gastrointestinal: no abdominal pain, no diarrhea, no hematemesis, no hematochezia, no melena, no nausea, no vomiting - Genitourinary Genitourinary ROS male: as per HPI - Musculoskeletal Musculoskeletal ROS IM: no numbness, no tingling - Integumentary Integumentary IM: as per HPI, skin ulcer (Right foot, the approximate size of a quarter with bone exposure and yellow drainage. ) - Neurological Neurological ROS: no confusion, no convulsions, no focal weakness, no numbness, no tingling, no tremor(s) - Psychiatric Psychiatric: as per HPI - Endocrine Endocrine IM: as per HPI - Hematologic/Lymphatic Hematologic/Lymphatic: no easy bruising - Allergic/Immunologic Allergic/Immunologic: as per HPI - Constitutional Vitals: Temp Pulse Resp BP Pulse Ox 98.3 F 83 18 117/61 99 12/25/16 15:21 12/25/16 15:21 12/25/16 15:21 12/25/16 15:21 12/25/16 15:21 General appearance: Present: cooperative, A&O X 3, pleasant, no acute distress, answers questions appropriately - Head Head exam: Present: atraumatic, normocephalic - Eye Eye exam: Present: PERRL, conjuntiva pink, sclera anicteric Pupils: Present: PERRL - ENT ENT exam: Present: normal exam, normal external ear exam - Neck Neck exam general surgery: Present: normal inspection, supple, trachea midline - Respiratory Respiratory exam: Present: CTAB. Absent: accessory muscle use, rales, rhonchi, wheezes - Cardiovascular Cardiovascular exam: Present: RRR, +S1, +S2. Absent: diastolic murmur, gallop, rubs, systolic murmur - GI/Abdominal GI/Abdominal exam: Present: normal bowel sounds, soft, no peritoneal signs. Absent: distended, tenderness - Rectal Rectal exam: Present: deferred - Additional comments: exam deferred. - Extremities Exam Extremities exam: Present: calf tenderness (Right leg), pedal edema (Right foot) , tenderness (Right calf and foot), warm, radial pulses palpable and symmetrical. Absent: cyanotic - Back Exam Back exam: Present: normal inspection - Neurological Exam Neurological exam: Present: CN II-XII intact, oriented X3, no focal deficits. Absent: pronater drift, facial droop, speech deficit - Psychiatric Psychiatric exam: Present: normal affect, normal mood - Skin Skin exam: Present: dry, intact Internal Med - H&P Results - Labs CBC & Chem 7: 12/25/16 16:06 - Diagnostic Studies Other Images Additional comments: Impressions Foot X-Ray 12/25/16 15:46 IMPRESSION: 1. Status post amputation of the 1st and 2nd digits as described. No complication. Specifically, no obvious soft tissue injury to explain the patient's symptoms. 2. No acute osseous abnormality. 3. Prominent heel spur. D/ / 12/25/2016 17:03:31 Sheyla Aj MD / [email or web address] Interpreting Provider: Sheyla Aj MD <Home Joiner - Last Filed: 12/26/16 02:34> Date of Encounter: 12/25/16 Internal Medicine - H&P: HPI History of present illness: Mr. Escobar is a 56 year old male All Systems PM: A 10-system review of systems was performed and is negative for pertinent findings except as documented above in the HPI. - Constitutional Vitals: Temp Pulse Resp BP Pulse Ox 98.2 F 64 16 95/49 95 12/26/16 01:19 12/26/16 01:19 12/26/16 01:19 12/26/16 01:19 12/26/16 01:19 Internal Med - H&P Results - Labs CBC & Chem 7: 12/25/16 16:06 - Diagnostic Studies Other Images Status: image reviewed by me (foot imaging) - Attending Attestation I personally interviewed and examined this patient and my medical decision- making was reviewed with the Advanced Nurse Practitioner. I agree with the documented findings, disposition and treatment plan as described except to the extent set forth below. Home Joiner MD, MPH Hospitalist
[2016-12-25] MEDS ORDERED: Dextrose Gel 15 GM PO PRN ×2 (19:20)
[2016-12-25] MEDS ORDERED: D5% in Water 1,000 ML IVC PRN (19:20)
[2016-12-25] MEDS ORDERED: *HR* Dextrose 50 % in Water (Syg) 50 ML SYRINGE IVP PRN (19:20)
[2016-12-25] MEDS ORDERED: Vancomycin 1,000 MG in D5% in Water 250 ML IVPB SCH (20:00)
[2016-12-25] MEDS: *HR* Morphine 2 MG/ML SYRINGE IVP PRN (20:07)
[2016-12-25] MEDS ORDERED: Insulin LISPRO 300 UNITS/3 ML VIAL SQ SCH (21:00)
[2016-12-25] MEDS: Nicotine 21 MG PATCH.TD24 TD SCH (22:27)
[2016-12-25] MEDS: Gabapentin 100 MG CAPSULE PO SCH (22:27)
[2016-12-25] MEDS: Insulin DETEMIR 100 UNIT/ML X5UNITS SQ SCH (22:28)
[2016-12-25] MEDS: *HR* HYDROcodone/Acet 5/325 mg TABLET PO PRN (22:55)
[2016-12-26] MEDS: *HR* Morphine 2 MG/ML SYRINGE IVP PRN ×2 (01:00→19:26)
[2016-12-26] MEDS: Insulin LISPRO 300 UNITS/3 ML VIAL SQ SCH ×4 (01:00→17:09)
[2016-12-26] MEDS: Piperacillin/Tazobactam 3.375 GM in D5% in Water (Mini-Bag+) 100 ML IVPB SCH ×2 (02:22→08:22)
[2016-12-26] MEDS ORDERED: *HR* Dextrose 50 % in Water (Syg) 50 ML SYRINGE IVP ONE (04:54)
[2016-12-26] MEDS: *HR* HYDROcodone/Acet 5/325 mg TABLET PO PRN ×2 (05:20→10:19)
[2016-12-26] MEDS ORDERED: Vancomycin 1,500 MG in D5% in Water 250 ML IVPB SCH (06:00)
[2016-12-26 06:24] LABS: Basophils % 0.4 %; Eosinophils # 0.3 K/mcL (0.0-0.6); Hematocrit 33.3 % (37.5-50.1); Hemoglobin 10.5 g/dL (12.9-16.9); Immature Granulocytes % 0.4 % (0-4); Lymphocytes # 1.5 K/mcL (0.6-4.6); Lymphocytes % 19.1 %; Mean Corpuscular HGB Conc 31.5 g/dL (31.6-35.5); Mean Corpuscular Hemoglobin 30.8 pg (28.0-33.3); Mean Corpuscular Volume 97.7 fL (83.0-100.0); Mean Platelet Volume 10.1 fL (9.4-12.4); Monocytes % 13.3 %; Neutrophils # 4.9 K/mcL (1.6-8.9); Platelet Count 263 K/mcL (140-400); Red Blood Count 3.41 M/mcL (4.19-5.50); Red Cell Distribution Width 12.6 % (11.5-14.5); Segmented Neutrophils % 62.8 %
[2016-12-26 06:25] LABS: INR 1.1; Prothrombin Time 11.3 Seconds (9.4-12.1)
[2016-12-26 06:27] LABS: Activated Partial Thrombo Time 66.5 Seconds (26.0-36.0)
[2016-12-26 06:34] LABS: BUN/Creatinine Ratio 14 (6-26); Blood Urea Nitrogen 10 mg/dL (8-26); Calcium 9.2 mg/dL (8.6-10.8); Carbon Dioxide 29 mEq/L (19-29); Chloride 105 mEq/L (98-109); Chol/HDL Ratio 5.1 (0-4.9); Cholesterol 148 mg/dL (< 200); Glucose 107 mg/dL (70-99); HDL Cholesterol 29 mg/dL (40-59); LDL Cholesterol,Calculated 101 mg/dL (0-99); Magnesium 1.7 mg/dL (1.6-2.6); Osmolality,Calculated 286 (280-300); Potassium 4.3 mEq/L (3.5-4.5); Sodium 138 mEq/L (136-145); Triglycerides 91 mg/dL (< 150); eGFR For African Americans > 60 (> 60); eGFR For Non-African Americans > 60 (> 60)
[2016-12-26] MEDS ORDERED: Insulin LISPRO 300 UNITS/3 ML VIAL SQ SCH (07:30)
[2016-12-26] MEDS: Pantoprazole 40 MG VIAL IVP SCH (08:21)
[2016-12-26] MEDS: Gabapentin 100 MG CAPSULE PO SCH ×3 (08:21→20:16)
[2016-12-26] MEDS: (Ensure High Protein] 1 BOTTLE) PO SCH ×3 (08:22→17:10)
[2016-12-26] MEDS: Nicotine 21 MG PATCH.TD24 TD SCH (08:22)
[2016-12-26] MEDS: 0.9 % Sodium Chloride 1,000 ML IVC SCH ×2 (08:22→20:13)
--- NOTE | 2016-12-26 09:06 | Infectious Disease Consult ---
Date of Encounter: 12/26/16 Time of Encounter: 09:04 Assessment and Plan (1) Diabetic foot ulcer Status: Acute Assessment and plan: Patient has met one SIRS criteria of leukocytosis WBC 12.6 Labs on admission revealed WBC 12.6, ESR 115, lactic acid 0.7 Right foot x-ray revealed Status post amputation of the 1st and 2nd digits with no obvious soft tissue injury to explain the patient's symptoms. No acute osseous abnormality. Prominent heel spur. Patient was started on vancomycin and Zosyn on 12/25/16 Recommendations: Blood and wound cultures ordered Nothing by mouth, Awaiting further podiatry recommendations, will likely need incision and drainage of the wound. Need to obtain deep wound cultures. Hold the vancomycin and Zosyn for now, we'll discuss with podiatry, if patient is going to surgery we would rather start antibiotics after proper culture has been obtained intraoperatively. If patient is not going to surgery we might have to start empirically. Patient only has one SIRS criteria. Duration of treatment depends on clinical course. Continue to monitor for drug toxicities and dose adjust antibiotics accordingly Qualifiers: Diabetic foot ulcer location: unspecified part of foot Diabetes mellitus type: type 2 Laterality: right Non-pressure ulcer stage: unspecified non- pressure ulcer stage Qualified Code(s): E11.621 - Type 2 diabetes mellitus with foot ulcer; L97.519 - Non-pressure chronic ulcer of other part of right foot with unspecified severity (2) Osteomyelitis of foot, right, acute Status: Suspected Assessment and plan: ESR 115, right foot x-ray reveals no osseous abnormality Sitting getting MRI if okay with podiatry. (3) Diabetes mellitus type 2 with complications Status: Acute Assessment and plan: Continue current management per primary team. 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: with dedicated intermodal truck driver use Qualified Code( s): E11.8 - Type 2 diabetes mellitus with unspecified complications; Z79.4 - nursing home (current) use of insulin (4) Peripheral neuropathy Status: Chronic Qualifiers: Peripheral neuropathy type: polyneuropathy associated with underlying disease Qualified Code(s): G63 - Polyneuropathy in diseases classified elsewhere (5) Tobacco dependence Status: Acute Infectious Disease HPI - Data of Consult Consult date: 12/26/16 Requesting Physician: Dee Connor MD Primary Care Provider: Jose G Leal - Consult Narrative Reason for consult: Right foot osteomyelitis History of present illness: Mr. Escobar is a 56 year old male that was admitted on 12/25/16 for foot pain and swelling related to a diabetic foot wound Infectious disease is consulted on 12/26/16 for right foot osteomyelitis Mr. 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 Gomez's clinic. He reports 3 days of purulent drainage from right foot wound and "the bone pushing out". During office visit yesterday, patient was advised to go to the hospital for IV antibiotics. Today patient reports pain in the right foot and difficulty bearing weight. Since admission he has met one SIRS criteria of leukocytosis WBC 12.6 Labs on admission revealed WBC 12.6, ESR 115, lactic acid 0.7 Right foot x-ray revealed Status post amputation of the 1st and 2nd digits with no obvious soft tissue injury to explain the patient's symptoms. No acute osseous abnormality. Prominent heel spur. Blood or wound cultures have not been collected during current admission. Patient was started on vancomycin and Zosyn on 12/25/16 Other consultants include podiatry. CC: Dee Connor MD Past Med Surg Social Fam HX - Past Medical History Medical history: diabetes, other Psychiatric history: no psych history - Past Surgical History Surgical History: other (First and second right toe amputation) - Social History Smoking Status: Current every day smoker Packs per day: 1 PPD Smokeless Tobacco Status: No Alcohol use: occasionally Drug use: none - Family History Father Race: Family Member Ethnicity: Non- Living Status: Age at : 83 Cause of : [place] Hx Family Cardiac Disorders: Yes ([place], HD) Hx Family Cancer: Yes (Leukemia) Brother Race: Family Member Ethnicity: Non- Living Status: Age at : 58 Cause of : Cancer Hx Family Cancer: Yes (Unknown) Sister Race: Family Member Ethnicity: Non- Living Status: Age at : 55 Cause of : Breast cancer with metastases to the brain Hx Family Cancer: Yes (Breast, Brain) Mother Race: Family Member Ethnicity: Non- Living Status: Age at : 83 Cause of : Cancer Hx Family Cardiac Disorders: Yes (HD) Hx Family Respiratory Disorders: Yes Hx Family Cancer: Yes (Melanoma) Hx Family GI Disorders: No Hx Family Endocrine Disorder: Yes (DM, Thyroid disease) Hx Family Neuromuscular Disorders: No Hx Family Neurologic Disorders: No Hx Family HEENT Disorders: No Hx Family Autoimmune Disorders: No Infectious Disease-CN:Meds Ibuprofen/Pseudoephedrine HCl [Advil Cold & Sinus Caplet] 1 tab PO TID PRN 12/26 [History] Multivitamin [Multi-Day Vitamins] 1 each PO DAILY 01/10/16 [History] Linagliptin [Tradjenta] 5 mg PO DAILY 02/01/16 [History] metFORMIN [Glucophage] 500 mg PO BIDWM 02/01/16 [History] Gabapentin [Neurontin] 300 mg PO TID 05/15/16 [History] Insulin Glargine [Lantus] 20 unit SQ HS 05/15/16 [History] Insulin ASPART [NovoLOG] 0 unit SQ TIDWM 11/20/16 [History] Lactose-Reduced Food [Ensure High Protein] 1 bottle PO TIDWM 11/20/16 [History] 3 Allergy/AdvReac Type Severity Reaction Status Date / Time No Known Allergies Allergy Verified 02/01/16 10:56 Review of systems: Travel: denies recent travel Animal exposure: Patient has dogs at home. Denies exposure to sick contacts or small children. Diet: denies ingestion of undercooked or raw meats. Dental: denies recent dental procedures - Constitutional Constitutional: Absent: chills, fever(s), frequent falls, weight gain, weight loss - EENT Eyes: Absent: change in vision Nose, mouth and throat: Absent: nasal congestion, sore throat - Cardiovascular Cardiovascular: Absent: chest pain, edema, palpitations, rapid heart rate - Respiratory Respiratory: Absent: cough, chest congestion - Gastrointestinal Gastrointestinal: Absent: abdominal pain, diarrhea, nausea, vomiting - Musculoskeletal Musculoskeletal: Present: myalgias. Absent: limited range of motion, numbness - Integumentary Integumentary: Present: changing lesions, lesions, non-healing lesions, skin ulcer, wounds. Absent: change in hair, change in nails, erythema, swelling - Neurological Neurological: Present: abnormal gait. Absent: numbness, paresthesias, tingling , weakness - Psychiatric Psychiatric: Absent: anxiety, confusion - Endocrine Endocrine: Absent: cold intolerance, heat intolerance, polydipsia, polyphagia, polyuria - Hematologic/Lymphatic Hematologic/Lymphatic: Absent: lymphadenopathy Exam - Constitutional Vitals: Temp Pulse Resp BP Pulse Ox 97.7 F 65 16 90/50 98 12/26/16 06:55 12/26/16 06:41 12/26/16 06:55 12/26/16 06:41 12/26/16 06:55 General appearance: cooperative, no acute distress, no febrile, no obese - Head Head exam: Present: atraumatic, normal inspection, normocephalic - Eye Eye exam: Present: PERRL, conjuntiva pink - ENT ENT exam: Present: mucous membranes moist, normal oropharynx - Neck Neck exam: Present: full ROM, normal inspection. Absent: lymphadenopathy, tenderness - Respiratory Respiratory exam: Present: CTAB. Absent: rhonchi, wheezes - Cardiovascular Cardiovascular exam: Present: RRR, +S1, +S2 - GI/Abdominal GI/Abdominal exam: Present: normal bowel sounds, soft. Absent: guarding, rebound - Extremities Exam Additional comments: Quarter sized ulcer on the plantar aspect of right foot at the third MTP joint with expressible purulent drainage, moderate tenderness to palpation, no surrounding erythema, no proximal streaking, no foul odor, no bleeding, no lymphadenopathy. Dressing is saturated. - Neurological Exam Neurological exam: Present: alert, oriented X3, no focal deficits. Absent: altered, motor sensory deficit - Psychiatric Psychiatric exam: Present: normal affect, normal mood - Skin Additional comments: Quarter sized ulcer on the plantar aspect of right foot at the third MTP joint with expressible purulent drainage, moderate tenderness to palpation, no surrounding erythema, no proximal streaking, no foul odor, no bleeding, no lymphadenopathy. Dressing is saturated. Infectious Disease CN: Results - Labs CBC & Chem 7: 12/26/16 05:54 12/26/16 05:54 Consult Discharge Plan - Plan Referrals: Jose G Leal MD [Primary Care Provider] - - Attending Attestation I examined this patient and my medical decision-making was reviewed with the Resident Physician. I agree with the documented findings, disposition and treatment plan as described except to the extent set forth below. Patient is a 56-year-old gentleman admitted on 12/25/16 4 right foot pain and swelling. We are consulted today for right foot osteomyelitis. The patient with history of diabetes mellitus diagnosed in 2016, peripheral neuropathy and history of toe amputations of the first and second right toe secondary to gangrene. Surgery was done on May 23, 2016. Intra-Op cultures revealed MRSA. Patient was treated with vancomycin as outpatient. Duration of treatment was through June 14, 2016. Notes from Dr. Del Angel office revealed that the erythema and edema have fully resolved and there was no wound dehiscence and patient recovered well. Patient states that 3 days prior to admission he started having drainage and purulence coming out of the surgical wound site. Patient also said he had on pushing out. Patient was seen by Dr. Gomez in clinic and was admitted to the hospital for further evaluation. Since admission patient has been afebrile with a MAXIMUM TEMPERATURE of 99 Fahrenheit, heart rate has been within normal limit, blood pressure has been on the lower and and normal respiratory rate. WBC was noted 12.6 thousand with 74% neutrophils. ESR was done and it came back at 115, with normal lactic acidosis. Foot x-ray was done and revealed status post of dictation of the first and second digit, no obvious soft tissue injury to explain the patients symptoms. No acute osseous abnormalities. Prominent heel spur. No cultures were obtained. Patient was started empirically on vancomycin and Zosyn and we were consulted to evaluate the patient and make further recommendations. At this point we will need to get adequate cultures, will also need imaging to evaluate for osteomyelitis and we have high index of suspicion. An x-ray was done but x-rays are not very sensitive for ostial. Hold antibiotics to after surgery we will start empiric vancomycin and Zosyn until cultures finalize. Patient will patient and contact isolation because of recent history of MRSA Monitor labs and for drug toxicity We'll dose adjust antibiotics based on creatinine clearance of 112
[2016-12-26] MEDS ORDERED: 0.9 % Sodium Chloride 250 ML IVC PRN (13:55)
--- NOTE | 2016-12-26 14:00 | Internal Med Progress Note ---
Date of Encounter: 12/26/16 Time of Encounter: 12:58 - Assessment and plan (1) Osteomyelitis of foot, right, acute Current Visit: Yes Status: Suspected Assessment and plan: Infectious disease consultation appreciated Awaiting podiatry consultation. As per patient, he is to undergo surgical intervention by Dr. Gomez in am (12/27/16) NPO after midnight continue IV vancomycin and zosyn monitor vanco trough IV fluids pain control (2) Anemia of chronic disease Current Visit: Yes Status: Acute Assessment and plan: H&H low but acceptable no acute bleeding reported at this time will continue to closely monitor and transfuse as needed (3) Diabetes Current Visit: Yes Status: Chronic Assessment and plan: continue Levemir and ss insulin algorithm monitor FS and BG ADA diet Qualifiers: Diabetes mellitus type: type 2 Diabetes mellitus complication status: with skin complications Diabetes mellitus complication detail: with foot ulcer Diabetes mellitus assisted insulin use: with assisted use Qualified Code(s) : E11.621 - Type 2 diabetes mellitus with foot ulcer; L97.509 - Non-pressure chronic ulcer of other part of unspecified foot with unspecified severity; Z79.4 - long term care phlebotomist (current) use of insulin (4) DVT prophylaxis Current Visit: Yes Status: Acute Assessment and plan: Heparin SQ (5) Tobacco abuse counseling Current Visit: Yes Status: Acute Assessment and plan: smoking cessation counseling provided nicotine supplementation provided - Subjective Interval history: Patient seen and examined at bedside. Eating comfortably in bed. States the pain is poorly controlled with the current pain medications. States he is to undergo surgery in am by Dr. Gomez. Right foot currently wrapped in dressing. Noted to be hypotensive but asymptomatic. Denies any fever or chills at this time. - Constitutional Vitals: Temp Pulse Resp BP Pulse Ox 97.3 F L 64 16 92/49 96 12/26/16 11:20 12/26/16 11:20 12/26/16 11:20 12/26/16 11:20 12/26/16 11:20 General appearance: Present: cooperative, A&O X 3, pleasant, no acute distress, answers questions appropriately - Head Head exam: Present: atraumatic, normocephalic - Eye Eye exam: Present: conjuntiva pink, sclera anicteric - Respiratory Respiratory exam: Absent: respiratory distress, wheezes - Cardiovascular Cardiovascular exam: Present: RRR, +S1, +S2. Absent: diastolic murmur, gallop, rubs, systolic murmur - GI/Abdominal GI/Abdominal exam: Present: normal bowel sounds, soft, no peritoneal signs. Absent: distended, tenderness - Extremities Exam Extremities exam: Present: warm, radial pulses palpable and symmetrical (right LE edema and erythema on mi, Rt foot dressing intact ). Absent: calf tenderness Internal Medicine: Result - Labs CBC & Chem 7: 12/26/16 05:54 12/26/16 05:54 Labs: Short CBC 12/26/16 Range/Units 05:54 WBC 7.7 (4.3-11.1) K/mcL Hgb 10.5 L (12.9-16.9) g/dL Hct 33.3 L (37.5-50.1) % Plt Count 263 (140-400) K/mcL Neutrophils # 4.9 (1.6-8.9) K/mcL BMP 12/26/16 05:54 Sodium 138 Potassium 4.3 Chloride 105 Carbon Dioxide 29 BUN 10 Creatinine 0.72 Glucose 107 H Calcium 9.2 - ABG Interpretation ABG results: PT/INR, D-dimer PT 11.3 Seconds (9.4-12.1) 12/26/16 05:54 Consult Discharge Plan - Plan Referrals: Jose G Leal MD [Primary Care Provider] -
--- NOTE | 2016-12-26 14:12 | Podiatry Consult Note ---
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 insulin use: with long-term use Qualified Code( s): E11.8 - Type 2 diabetes mellitus with unspecified complications; Z79.4 - extermination inspector (current) use of insulin (2) Diabetic foot ulcer Current visit: Yes Status: Acute Ulcer cleansed at bedside today, deep wound cultures obtained Spoke with patient, will plan for OR tomorrow with I&D of right foot with probable wound vac placement Will return this evening to alexa area to dorsal aspect of foot to assess for underlying abscess and drain if necessary Wet to dry dressing 4x4 and kerlex placed to wound at this time Patient may eat today, requesting ensure with high protein added to meals Patient will be NPO after midnight. Dressing changes wet to dry BID at this time Continue current antibiotic therapy until wound and blood cultures are returned , ID recommendations are appreciated Will continue to monitor closely Qualifiers: Diabetic foot ulcer location: unspecified part of foot Diabetes mellitus type: type 2 Laterality: right Non-pressure ulcer stage: unspecified non- pressure ulcer stage Qualified Code(s): E11.621 - Type 2 diabetes mellitus with foot ulcer; L97.519 - Non-pressure chronic ulcer of other part of right foot with unspecified severity History of Present Illness HPI: Mr. Escobar is a 56 year old male is a patient known to and the wound care center. Patient has had an ongoing non healing surgical wound to the plantar aspect of right foot for some time now. Patient has a medical history of diabetes mellitus, tobacco abuse, and peripheral neuropathy. Patient states that 2 days ago he felt "a pop" and he believes this is when the bone of his right foot came through. Patient has been wearing a boot and once this was removed in wound care center on 12/25/2016 metatarsal head of #2 was exposed to plantar aspect of foot. A blister was also noted to be forming to dorsal aspect of foot directly above ulceration of plantar aspect. Patient was admitted after leaving wound care clinic with plans for probable TMA. Patient was seen and evaluated per internal medicine and infectious disease. Patient has been started on vancomycin and zosyn. WBC 12.6, Lactic Acid 0.7 ESr 115. Blood and wound cultures were obtained. Patient is awake alert and oriented on arrival. Patient denies any fevers, chills, n/v or flu like symptoms. Patient denies calf pain or SOB. Past Med Surg Social Fam HX - Past Medical History Medical history: diabetes, other Psychiatric history: no psych history - Past Surgical History Surgical History: other (First and second right toe amputation) - Social History Smoking Status: Current every day smoker Packs per day: 1 PPD Smokeless Tobacco Status: No Alcohol use: occasionally Drug use: none - Family History Father Race: Family Member Ethnicity: Non- Living Status: Age at : 83 Cause of : [place] Hx Family Cardiac Disorders: Yes ([place], HD) Hx Family Cancer: Yes (Leukemia) Brother Race: Family Member Ethnicity: Non- Living Status: Age at : 58 Cause of : Cancer Hx Family Cancer: Yes (Unknown) Sister Race: Family Member Ethnicity: Non- Living Status: Age at : 55 Cause of : Breast cancer with metastases to the brain Hx Family Cancer: Yes (Breast, Brain) Mother Race: Family Member Ethnicity: Non- Living Status: Age at : 83 Cause of : Cancer Hx Family Cardiac Disorders: Yes (HD) Hx Family Respiratory Disorders: Yes Hx Family Cancer: Yes (Melanoma) Hx Family GI Disorders: No Hx Family Endocrine Disorder: Yes (DM, Thyroid disease) Hx Family Neuromuscular Disorders: No Hx Family Neurologic Disorders: No Hx Family HEENT Disorders: No Hx Family Autoimmune Disorders: No Medications and Allergies Ibuprofen/Pseudoephedrine HCl [Advil Cold & Sinus Caplet] 1 tab PO TID PRN 12/26 [History] Multivitamin [Multi-Day Vitamins] 1 each PO DAILY 01/10/16 [History] Linagliptin [Tradjenta] 5 mg PO DAILY 02/01/16 [History] metFORMIN [Glucophage] 500 mg PO BIDWM 02/01/16 [History] Gabapentin [Neurontin] 300 mg PO TID 05/15/16 [History] Insulin Glargine [Lantus] 20 unit SQ HS 05/15/16 [History] Insulin ASPART [NovoLOG] 0 unit SQ TIDWM 11/20/16 [History] Lactose-Reduced Food [Ensure High Protein] 1 bottle PO TIDWM 11/20/16 [History] 3 Allergy/AdvReac Type Severity Reaction Status Date / Time No Known Allergies Allergy Verified 02/01/16 10:56 All Systems Reviewed: A 10-system review of systems was performed and is negative for pertinent findings except as documented above in the HPI. Physical Exam - Constitutional Vitals: Temp Pulse Resp BP Pulse Ox 97.3 F L 64 16 92/49 96 12/26/16 11:20 12/26/16 11:20 12/26/16 11:20 12/26/16 11:20 12/26/16 11:20 General appearance: cooperative, no acute distress, no febrile, no obese Exam: Awake, alert and oriented x3 Ulceration to plantar aspect of right foot- Exposed metatarsal head #2. Wound measuring [id number]. All fibrous tissue to wound. Scant amount of drainage noted. Foul odor. Patient is neuropathic to pain There is a area to dorsal aspect of foot directly above plantar wound which is a concern of possible abscess tunneling from plantar wound. This area is slightly fluctuant with serous drainage, warmth, edema, erythema, and a foul odor. 0.5cmx0.5cm- with very small opening to center No calf pain with manual compression Periwound erythema, edema, warmth without evidence of streaking Edema +1/4 Pulses are faint at best DP/PT Movement intact Minimal sensation to touch, there is loss of protective sensation Cap refill <3 seconds Results - Labs Result Diagrams: 12/27/16 06:07 12/27/16 06:07 Labs: Abnormal lab results RBC 3.41 M/mcL (4.19-5.50) L 12/26/16 05:54 Hgb 10.5 g/dL (12.9-16.9) L 12/26/16 05:54 Hct 33.3 % (37.5-50.1) L 12/26/16 05:54 MCHC 31.5 g/dL (31.6-35.5) L 12/26/16 05:54 ESR 115 mm/hr (0-10) H 12/25/16 16:06 APTT 66.5 Seconds (26.0-36.0) H 12/26/16 05:54 Glucose 107 mg/dL (70-99) H 12/26/16 05:54 POC Glucose 121 (58-89) H 12/26/16 06:01 LDL Cholesterol, Calc 101 mg/dL (0-99) H 12/26/16 05:54 HDL Cholesterol 29 mg/dL (40-59) L 12/26/16 05:54 Cholesterol/HDL Ratio 5.1 (0-4.9) H 12/26/16 05:54 H & H 12/26/16 Range/Units 05:54 Hgb 10.5 L (12.9-16.9) g/dL Hct 33.3 L (37.5-50.1) % All other labs normal. Consult Discharge Plan - Plan Referrals: Jose G Leal MD [Primary Care Provider] -
[2016-12-26] MEDS: *HR* HYDROcodone/Acet 7.5/325 mg TABLET PO PRN ×2 (15:29→22:01)
[2016-12-26] MEDS: *HR* Heparin 5,000 UNIT/ML VIAL SQ SCH (17:10)
--- NOTE | 2016-12-26 17:16 | Procedure Note ---
Date of procedure: 12/26/16 Pre-op diagnosis: abscess of right foot Post-op diagnosis: same Procedure: bedside I&D of abscess of dorsal aspect of right foot Patient awake alert and oriented, spoke to patient about concerns of abscess formation to dorsal aspect of foot and need to drain area. Patient is agreeable and signed consent without any coercion. Area was prepped. Foot cleansed with saline, alcohol applied 3cc lidocaine was injected into area surrounding abscess formation for patient comfort. Tolerated well Noting profound anesthesia a final timeout was taken a 2cmx0.1cmx1.5cm incision was made to the lateral edge of the noted fluctuant area. Immediate release of thick yellow odorous drainage was released. Cultures were obtained. Area was irrigated with saline. Inspected wound with cotton tipped applicator. Wound extends 3.2cm towards existing ulceration to plantar aspect of foot. Area painted with betadine, packed with mesalt to allow for drainage, 4x4 and kerlex Patient tolerated well. no complications. No further bleeding Dressing will need to be changed every 6 hours with irrigation of wound Will plan for formal I&D with tomorrow in or Anesthesia: local Surgeon: Seema Hester Estimated blood loss (cc): 2 Pathology: other (cultures obtained) Condition: stable Disposition: floor
[2016-12-26] MEDS: Insulin DETEMIR 100 UNIT/ML X5UNITS SQ SCH (20:16)
--- NOTE | 2016-12-26 21:08 | Anesthesia Evaluation PreOp ---
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: Other (Chronic Pain maintained on GAbapentin) Other Medical History: Bleeding (Hx of DVT), Diabetes Type II (maintained on Lispro, Tradjenta, Glucophage, Lantus) Anesthesia History: No Prior Anesthetic Complications, Past Anesthesia ( Multiple toe amps, I&D Foot wounds, Appy (age 11)) Alcohol Use: occasionally Drug use: none Medications and Allergies Ibuprofen/Pseudoephedrine HCl [Advil Cold & Sinus Caplet] 1 tab PO TID PRN 12/26 [History] Multivitamin [Multi-Day Vitamins] 1 each PO DAILY 01/10/16 [History] Linagliptin [Tradjenta] 5 mg PO DAILY 02/01/16 [History] metFORMIN [Glucophage] 500 mg PO BIDWM 02/01/16 [History] Gabapentin [Neurontin] 300 mg PO TID 05/15/16 [History] Insulin Glargine [Lantus] 20 unit SQ HS 05/15/16 [History] Insulin ASPART [NovoLOG] 0 unit SQ TIDWM 11/20/16 [History] Lactose-Reduced Food [Ensure High Protein] 1 bottle PO TIDWM 11/20/16 [History] 3 Allergy/AdvReac Type Severity Reaction Status Date / Time No Known Allergies Allergy Verified 02/01/16 10:56 - Meds/Allergy Pre-op Review Medications Reviewed: Yes Allergies Reviewed: Yes Beta Blockers on Current Med List: No Anesthesia Results - Labs 12/26/16 05:54 12/26/16 05:54 Laboratory Results Impressions Foot X-Ray 12/25/16 15:46 IMPRESSION: 1. Status post amputation of the 1st and 2nd digits as described. No complication. Specifically, no obvious soft tissue injury to explain the patient's symptoms. 2. No acute osseous abnormality. 3. Prominent heel spur. D/ / 12/25/2016 17:03:31 Sheyla Aj MD / [employer] Interpreting Provider: Sheyla Aj MD - Imaging EKG: image reviewed (85bpm SR, non-specific T wave abnormality) Anesthesia Exam Vital Signs Temp Pulse Resp BP Pulse Ox 12/26/16 19:44 99.1 F 74 16 102/54 94 12/26/16 17:18 97.4 F L 81 14 104/63 92 12/26/16 11:20 97.3 F L 64 16 92/49 96 12/26/16 10:20 94/52 12/26/16 06:55 97.7 F 16 98 12/26/16 06:41 65 90/50 12/26/16 05:18 97.7 F 65 16 90/50 99 12/26/16 01:19 98.2 F 64 16 95/49 95 Intake and Output 12/26/16 12/26/16 12/26/16 07:59 15:59 23:59 Intake Total 100 / 100 490 / 490 1000 / 1000 Balance 100 / 100 490 / 490 1000 / 1000 Intake: IV Fluids 100 / 100 250 / 250 1000 / 1000 0.9 % Sodium Chloride 1, 1000 / 1000 000 ML @ 100 mls/hr IVC . Q10H AUDREY Rx#:[id number] Zosyn 3.375 GM In 100 / 100 Dextrose 5% (Minibag+) 100 ML 100 ML @ 25 mls/hr IVPB Q8H AUDREY Rx#: [id number] Vancocin 1,500 MG In 250 / 250 Dextrose 5% 250 ML @ 166. 67 mls/hr IVPB Q12H AUDREY Rx#:[id number] Oral 240 / 240 Other: Meal Lunch Percent of Meal Consumed 100% # Voids 1 Weight 75.75 kg Blood Glucose* 111 119 232 Patient Weight 12/26/16 23:59 Weight 75.75 kg Height: 6' Weight: 167# BMI = 23 NPO (# of Hours): MNoc - HEENT Pupil (Motor): Pupils equal, EOMI Mallampati: II Teeth: Edentulous Oral Opening: Greater than 3 - APPLICATIONS SALES CONSULTANT LOC: Oriented APPLICATIONS SALES CONSULTANT Motor: Normal RUE, Normal LUE, Normal RLE, Normal LLE, Normal Face APPLICATIONS SALES CONSULTANT Sensory: Normal: RUE, LUE, RLE, LLE, Face - Cardiac Rhythm: Regular Murmur: None - Pulmonary Breath Sounds: bilateral Clear Respiratory Effort: Symmetrical Anesthesia Assess/Plan ASA Score: 3 (Smoker, PVDz, Peripheral Neuropathy) Modified Jimbo Scale for Level of Consciousness: Cooperative, oriented, and tranquil Anesthetic Plan: General Monitoring Plan: Standard Monitors Recovery Plan: PACU Anes Supervising Prov Stmt: Pt seen/evaluated, R&B discussed, questions answered and consent obtained. Diamante Palacio MD
[2016-12-27] MEDS: *HR* Morphine 2 MG/ML SYRINGE IVP PRN ×5 (00:16→22:43)
[2016-12-27] MEDS: Insulin LISPRO 300 UNITS/3 ML VIAL SQ SCH ×5 (00:17→21:10)
[2016-12-27] MEDS: *HR* HYDROcodone/Acet 7.5/325 mg TABLET PO PRN ×2 (05:28→17:08)
[2016-12-27] MEDS: *HR* Heparin 5,000 UNIT/ML VIAL SQ SCH ×2 (05:29→18:11)
[2016-12-27] MEDS: 0.9 % Sodium Chloride 1,000 ML IVC SCH ×3 (05:41→23:20)
--- NOTE | 2016-12-27 07:01 | Arterial Study Report ---
LE Arterial Physiologic Study Patient Name:Kody Escobar Order Number:[id number] Procedure Date:12/26/2016 Date:1960Age:56 yrs Gender:Male Lt BP:105 / mmHg Rt.BP:102 / mmHgHeart Rate: Location:[facility] Room #: [facility] Fundraising Assistant:Brooklyn Lynn RDCS Referring MD:Seema Hester CNP nutrition faculty member:Jose G Leal MD Reading MD:Sky Sharif MD Primary Indications:Non-palpable pulses, non healing wound Risk Factors Yes/No Diabetes Yes Smoking Current Yes Impressions: The right TIBURCIO and waveforms are consistent with mild disease. Right TIBURCIO 0.91. The left TIBURCIO and waveforms are consistent with mild disease. Left TIBURCIO 0.93. Recommendations: Risk factor reduction. Follow-up exam in 1 year. Findings LE Arterial Physiologic Exam: PVR: Right: The PVR waveforms are mildly diminished in the right ankle. Left: The PVR waveforms are mildly diminished in the left ankle. Segmental Pressures Side Location Pressure Index Result Right Posterior Tibial 96 0.91 Mildly Diminished Right Dorsalis Pedis 84 0.80 Mildly Diminished Left Posterior Tibial 98 0.93 Mildly Diminished Left Dorsalis Pedis 93 0.89 Mildly Diminished Ankle Brachial Index Right Systolic Diastolic TIBURCIO Brachial 102 0.91 Dorsalis Pedis 84 0.80 Posterior Tibial 96 0.91 Left Systolic Diastolic TIBURCIO Brachial 105 0.93 Dorsalis Pedis 93 0.89 Posterior Tibial 98 0.93 Updated by Sky Sharif MD on 12/27/2016 6:57:03 AM with Status of Final electronically signed on 12/27/2016 6:57:17 AM with status of Final
[2016-12-27 07:11] LABS: Basophils % 0.3 %; Eosinophils # 0.3 K/mcL (0.0-0.6); Eosinophils % 2.9 %; Hemoglobin 9.8 g/dL (12.9-16.9); Immature Granulocytes % 0.4 % (0-4); Lymphocytes # 1.7 K/mcL (0.6-4.6); Lymphocytes % 14.8 %; Mean Corpuscular HGB Conc 31.6 g/dL (31.6-35.5); Mean Corpuscular Hemoglobin 30.6 pg (28.0-33.3); Mean Corpuscular Volume 96.9 fL (83.0-100.0); Mean Platelet Volume 10.6 fL (9.4-12.4); Monocytes # 1.1 K/mcL (0.0-1.3); Monocytes % 9.8 %; Platelet Count 286 K/mcL (140-400); Red Cell Distribution Width 12.7 % (11.5-14.5); Segmented Neutrophils % 71.8 %
--- NOTE | 2016-12-27 07:16 | Venous Imaging Report ---
LE Venous Duplex Patient Name:Kody Escobar Order Number:[id number] Procedure Date:12/25/2016 Date:1960Age:56 yrs Gender:Male Location:[facility] Room #: 25 Manager Mental Health:Tacos Odom Referring MD:Dee Connor MD information resources director:None Reading MD:Sky Sharif MD Primary Indications:Right leg swelling Secondary Indications: Impressions: Normal right lower extremity deep and superficial venous exam. Normal contralateral common femoral vein. Recommendations: Critical findings reported to Dr. Cordova in person by Tacos Odom. Lower Extremity Venous Duplex Side Vein Compress Spontaneous Flow Augment Diameter (cm) Depth (cm) Right Distal Iliac Normal Yes Phasic Yes Right Common Femoral Normal Yes Phasic Yes Right Superficial Femoral Normal Yes Phasic Yes Right Popliteal Normal Yes Phasic Yes Right Posterior Tibial Normal Yes Phasic Yes Right Peroneal Normal Yes Phasic Yes Right Saphenofemoral Junction Normal Yes Phasic Yes Right Great Saphenous Normal Yes Phasic Yes Right Lesser Saphenous Normal Yes Phasic Yes Left Common Femoral Normal Yes Phasic Yes Updated by Sky Sharif MD on 12/27/2016 7:11:35 AM electronically signed on 12/27/2016 7:11:48 AM with status of Final
[2016-12-27 07:19] LABS: BUN/Creatinine Ratio 20 (6-26); Blood Urea Nitrogen 14 mg/dL (8-26); Calcium 8.6 mg/dL (8.6-10.8); Carbon Dioxide 27 mEq/L (19-29); Chloride 105 mEq/L (98-109); Glucose 154 mg/dL (70-99); Magnesium 1.7 mg/dL (1.6-2.6); Osmolality,Calculated 288 (280-300); Phosphorous 2.5 mg/dL (2.3-4.7); Potassium 4.1 mEq/L (3.5-4.5); Sodium 137 mEq/L (136-145); eGFR For African Americans > 60 (> 60); eGFR For Non-African Americans > 60 (> 60)
[2016-12-27] MEDS: Nicotine 21 MG PATCH.TD24 TD SCH ×2 (08:39→23:21)
[2016-12-27] MEDS: (Ensure High Protein] 1 BOTTLE) PO SCH ×2 (08:39→10:49)
[2016-12-27] MEDS: Gabapentin 100 MG CAPSULE PO SCH (08:48)
[2016-12-27] MEDS: Pantoprazole 40 MG VIAL IVP SCH (08:48)
--- NOTE | 2016-12-27 09:12 | Infectious Disease Progress No ---
Date of Encounter: 12/27/16 Time of Encounter: 09:12 - Assessment and Plan (1) Diabetic foot ulcer Current Visit: Yes Status: Acute Patient has met one SIRS criteria of leukocytosis WBC 12.6 Labs on admission revealed WBC 12.6, ESR 115, lactic acid 0.7 Right foot x-ray revealed Status post amputation of the 1st and 2nd digits with no obvious soft tissue injury to explain the patient's symptoms. No acute osseous abnormality. Prominent heel spur. Patient was initially started on vancomycin and Zosyn on 12/25/16 12/26/16 blood culture showed no growth to date 12/26/16 Wound cultures positive for Proteus mirabilis Recommendations: Blood and wound cultures ordered Nothing by mouth, scheduled for incision and drainage this afternoon Need to obtain deep wound cultures. Hold the vancomycin and Zosyn for now, restart antibiotics after proper culture has been obtained intraoperatively Duration of treatment depends on clinical course. Continue to monitor for drug toxicities and dose adjust antibiotics accordingly Patient will patient and contact isolation because of recent history of MRSA Qualifiers: Diabetic foot ulcer location: unspecified part of foot Diabetes mellitus type: type 2 Laterality: right Non-pressure ulcer stage: unspecified non- pressure ulcer stage Qualified Code(s): E11.621 - Type 2 diabetes mellitus with foot ulcer; L97.519 - Non-pressure chronic ulcer of other part of right foot with unspecified severity (2) Osteomyelitis of foot, right, acute Current Visit: Yes Status: Suspected ESR 115, right foot x-ray reveals no osseous abnormality An x-ray was done but x-rays are not very sensitive for osteomyelitis Consider getting MRI if okay with podiatry. (3) Diabetes mellitus type 2 with complications Current Visit: Yes Status: Acute Continue management per primary team. Qualifiers: Diabetes mellitus terminal clerk insulin use: with terminal clerk use Qualified Code( s): E11.8 - Type 2 diabetes mellitus with unspecified complications; Z79.4 - terminal clerk (current) use of insulin (4) Peripheral neuropathy Current Visit: No Status: Chronic Qualifiers: Peripheral neuropathy type: polyneuropathy associated with underlying disease Qualified Code(s): G63 - Polyneuropathy in diseases classified elsewhere (5) Tobacco dependence Current Visit: Yes Status: Acute - Subjective Interval history: Patient seen and examined. Patient had fever 100.1 F earlier this morning. Patient had bedside I&D by podiatry yesterday with copious purulent drainage and is scheduled for formal I&D in the OR this afternoon. Patient denies chills , chest pain, shortness of breath, nausea, vomiting, diarrhea, or leg edema. Infect Dis PN-Objective Data - Labs CBC & Chem 7: 12/27/16 06:07 12/27/16 06:07 Labs: Laboratory Results - last 24 hr 12/26/16 12/26/16 12/26/16 06:57 08:06 12:00 WBC RBC Hgb Hct MCV MCH MCHC RDW Plt Count MPV Immature Gran % Seg Neutrophils % Lymphocytes % Monocytes % Eosinophils % Basophils % Neutrophils # Lymphocytes # Monocytes # Eosinophils # Basophils # Sodium Potassium Chloride Carbon Dioxide BUN Creatinine Est GFR ( Amer) Est GFR (Non-Af Amer) BUN/Creatinine Ratio Glucose POC Glucose 111 H 124 H 119 H Calculated Osmolality Calcium Phosphorus Magnesium 12/26/16 12/27/16 12/27/16 17:08 06:07 06:07 WBC 11.2 H RBC 3.20 L Hgb 9.8 L Hct 31.0 L MCV 96.9 MCH 30.6 MCHC 31.6 RDW 12.7 Plt Count 286 MPV 10.6 Immature Gran % 0.4 Seg Neutrophils % 71.8 Lymphocytes % 14.8 Monocytes % 9.8 Eosinophils % 2.9 Basophils % 0.3 Neutrophils # 8.0 Lymphocytes # 1.7 Monocytes # 1.1 Eosinophils # 0.3 Basophils # 0.0 Sodium 137 Potassium 4.1 Chloride 105 Carbon Dioxide 27 BUN 14 Creatinine 0.71 L Est GFR ( Amer) > 60 Est GFR (Non-Af Amer) > 60 BUN/Creatinine Ratio 20 Glucose 154 H POC Glucose 232 H Calculated Osmolality 288 Calcium 8.6 Phosphorus 2.5 Magnesium 1.7 Cultures: Cultures 12/26/16 11:01 Wound Culture - Preliminary Right Foot Proteus mirabilis 12/26/16 12:29 Blood Culture - Preliminary Peripheral Venipuncture No growth. 12/26/16 12:29 Blood Culture - Preliminary Peripheral Venipuncture No growth. Exam - Constitutional Vitals: Temp Pulse Resp BP Pulse Ox 99.1 F 78 16 98/61 93 12/27/16 06:58 12/27/16 06:58 12/27/16 06:58 12/27/16 06:58 12/27/16 06:58 General appearance: febrile, cooperative, no acute distress - Head Head exam: Present: atraumatic, normal inspection, normocephalic - Eye Eye exam: Present: PERRL, conjuntiva pink - ENT ENT exam: Present: mucous membranes moist, normal oropharynx - Neck Neck exam: Present: full ROM, normal inspection. Absent: lymphadenopathy - Respiratory Respiratory exam: Present: CTAB. Absent: rales, rhonchi - Cardiovascular Cardiovascular exam: Present: RRR, +S1, +S2 - GI/Abdominal GI/Abdominal exam: Present: normal bowel sounds, soft. Absent: guarding, rebound - Extremities Exam Additional comments: 2 cm ulcer on the plantar aspect of right foot at the third MTP joint with expressible purulent drainage, moderate tenderness to palpation, no surrounding erythema, no proximal streaking, no foul odor, no bleeding, no lymphadenopathy. Dressing is saturated. - Neurological Exam Neurological exam: Present: alert, oriented X3. Absent: altered - Psychiatric Psychiatric exam: Present: normal affect, normal mood - Skin Additional comments: 2 cm ulcer on the plantar aspect of right foot at the third MTP joint with expressible purulent drainage, moderate tenderness to palpation, no surrounding erythema, no proximal streaking, no foul odor, no bleeding, no lymphadenopathy. Dressing is saturated. Consult Discharge Plan - Plan Referrals: Jose G Leal MD [Primary Care Provider] - - Attending Attestation I examined this patient and my medical decision-making was reviewed with the Resident Physician. I agree with the documented findings, disposition and treatment plan as described except to the extent set forth below. start vancomycin and zosyn until cultures finalize goal vanc trogh 15 monitor labs and for drug toxicity
--- NOTE | 2016-12-27 09:48 | Internal Med Progress Note ---
Date of Encounter: 12/27/16 Time of Encounter: 09:44 - Assessment and plan (1) Osteomyelitis of foot, right, acute Current Visit: Yes Status: Suspected Assessment and plan: Infectious disease consultation appreciated Podiatry consultation appreciated, scheduled for I&D in the OR today (12/27/16) f/u culture reports resume abx after today's procedure IV fluids pain control (2) Anemia of chronic disease Current Visit: Yes Status: Acute Assessment and plan: H&H low but acceptable no acute bleeding reported at this time will continue to closely monitor and transfuse as needed (3) Diabetes Current Visit: Yes Status: Chronic Assessment and plan: continue Levemir and ss insulin algorithm monitor FS and BG ADA diet Currently getting accuchecks q6h due to NPO status, will resume ADA diet after procedure and accuchecks ACHS Qualifiers: Diabetes mellitus type: type 2 Diabetes mellitus complication status: with skin complications Diabetes mellitus complication detail: with foot ulcer Diabetes mellitus [facility] insulin use: with buttermaker helper use Qualified Code(s) : E11.621 - Type 2 diabetes mellitus with foot ulcer; L97.509 - Non-pressure chronic ulcer of other part of unspecified foot with unspecified severity; Z79.4 - exterminator helper termite (current) use of insulin (4) DVT prophylaxis Current Visit: Yes Status: Acute Assessment and plan: Heparin SQ (5) Tobacco abuse counseling Current Visit: Yes Status: Acute Assessment and plan: smoking cessation counseling provided nicotine supplementation provided - Subjective Interval history: Pt seen and examined at bedside. S/P bedside I&D by podiatry, scheduled for further debridement in the OR today (12/27/16). Abx were discontinued by ID to get more accurate culture results pending today's I&D. Noted to be hypotensive however clinically asymptomatic. Pain better controlled with the current pain medications. Noted to have Tmax of 100.1 overnight, will resume abx therapy after I&D today. - Constitutional Vitals: Temp Pulse Resp BP Pulse Ox 99.1 F 78 16 98/61 93 12/27/16 06:58 12/27/16 06:58 12/27/16 06:58 12/27/16 06:58 12/27/16 06:58 General appearance: Present: cooperative, A&O X 3, pleasant, no acute distress, answers questions appropriately - Head Head exam: Present: atraumatic, normocephalic - Eye Eye exam: Present: conjuntiva pink, sclera anicteric - Respiratory Respiratory exam: Present: CTAB. Absent: accessory muscle use, rales, rhonchi, wheezes - Cardiovascular Cardiovascular exam: Present: RRR, +S1, +S2. Absent: diastolic murmur, gallop, rubs, systolic murmur Internal Medicine: Result - Labs CBC & Chem 7: 12/27/16 06:07 12/27/16 06:07 Labs: Short CBC 12/27/16 Range/Units 06:07 WBC 11.2 H (4.3-11.1) K/mcL Hgb 9.8 L (12.9-16.9) g/dL Hct 31.0 L (37.5-50.1) % Plt Count 286 (140-400) K/mcL Neutrophils # 8.0 (1.6-8.9) K/mcL BMP 12/27/16 06:07 Sodium 137 Potassium 4.1 Chloride 105 Carbon Dioxide 27 BUN 14 Creatinine 0.71 L Glucose 154 H Calcium 8.6 - ABG Interpretation ABG results: PT/INR, D-dimer PT 11.3 Seconds (9.4-12.1) 12/26/16 05:54 Consult Discharge Plan - Plan Referrals: Jose G Leal MD [Primary Care Provider] -
[2016-12-27] MEDS ORDERED: *HR* Midazolam HCl 2 MG/2 ML VIAL ONE (11:05)
[2016-12-27] MEDS ORDERED: *HR* FentaNYL (PF) 100 MCG/2 ML VIAL ONE (11:06)
[2016-12-27] MEDS ORDERED: *HR* Propofol 200 MG/20 ML VIAL IVP ONE (11:06)
[2016-12-27] MEDS ORDERED: Bupivacaine/Clonidine Syringe 1 EACH SYRINGE ONE (11:58)
[2016-12-27] MEDS ORDERED: EPHEDrine 50 MG/ML VIAL ONE (12:27)
[2016-12-27] MEDS ORDERED: Ondansetron 4 MG/2 ML VIAL ONE (12:54)
[2016-12-27] MEDS ORDERED: *HR* Morphine 2 MG/ML SYRINGE ONE (13:36)
[2016-12-27] MEDS ORDERED: *HR* Dextrose 50 % in Water (Syg) 50 ML SYRINGE IVP PRN (14:06)
[2016-12-27] MEDS ORDERED: 0.9 % Sodium Chloride 250 ML IVC PRN (14:06)
[2016-12-27] MEDS ORDERED: D5% in Water 1,000 ML IVC PRN (14:06)
[2016-12-27] MEDS ORDERED: Naloxone 0.4 MG/ML INJ IVP PRN (14:06)
[2016-12-27] MEDS ORDERED: Dextrose Gel 15 GM PO PRN ×2 (14:06)
[2016-12-27] MEDS ORDERED: Ondansetron 4 MG/2 ML VIAL IVP PRN (14:06)
[2016-12-27] MEDS ORDERED: Acetaminophen 325 MG TABLET PO PRN (14:06)
--- NOTE | 2016-12-27 14:15 | Anesthesia Evaluation Post Op ---
Date of Encounter: 12/27/16 Time of Encounter: 14:14 - Vital Signs Vital Signs: Last Vital Signs Temp 97.9 F 12/27/16 14:06 Pulse 75 12/27/16 14:06 Resp 16 12/27/16 14:06 BP 127/62 12/27/16 14:06 Pulse Ox 94 12/27/16 14:06 - Lungs Lungs: Clear Ascult./Percussion - Airway Airway: Non-obstructed - Cardiovascular Regular Rate - Mental Status Mental Status: Alert & Oriented, Answers Appropriately - Pain Pain Scale: 2 - Nausea Vomiting Nausea Vomiting: Not Present - Hydration Hydration: Ice chips - Discharge PostOp Status: Transfer Patient to floor
[2016-12-27] MEDS: Gabapentin 300 MG CAPSULE PO SCH ×2 (14:27→21:06)
[2016-12-27] MEDS: Vancomycin 1,250 MG in D5% in Water 250 ML IVPB SCH (16:58)
[2016-12-27] MEDS: Piperacillin/Tazobactam 3.375 GM in D5% in Water (Mini-Bag+) 100 ML IVPB SCH ×2 (16:58→23:21)
--- NOTE | 2016-12-27 17:05 | Orthopedic Operative Note ---
Date of procedure: 12/27/16 Pre-op diagnosis: Diabetic foot ulcer with abscess and suspected osteomyelitis right #3 MTP Post-op diagnosis: same Procedure: 12/27/16 17:03 #1: Incision the bone cortex for osteomyelitis #3 metatarsal #2 open amputation of toe #3 with metatarsal #3 applied wound VAC Implants: None Complications: None none Anesthesia: local, other (LMA) Local Anesthetics: 0.25% Sensorcaine HCL SubQ (cc) Surgeon: Dylon Gomez Estimated blood loss (cc): 5 Tourniquet Time (Minutes): 0 Specimen: 1: Swab cultures, tissue cultures #2: specimen toe and metatarsal Condition: stable Disposition: PACU Procedure in Detail: 12/27/16 17:05 Details in summary of procedure: The patient was brought to the surgical suite. A sign in procedure was performed. The patient was then transferred to the surgical table and positioned properly safely securely. The right foot was elevated on a foam block. No tourniquet was used. After smooth induction general anesthesia was achieved per LMA. The right ankle was then prepped with alcohol 3 times an ankle block was carried out postoperative comfort and to create a sympathetic block. The right foot was then prepped and draped in usual sterile manner. Surgical timeout was taken. The wound was explored and found to have a sinus tract with an abscess on the dorsal aspect of the MTPJ which was drained at bedside last evening to prevent further spread of the infection and abscess. The third metatarsal was visualized through the wound on the plantar aspect and was easily palpated. Concern for performing a complete TMA today was spread of the infection therefore I elected to only remove third toe and ulcer with distal metatarsal to ensure drainage of all abscesses/infection with localizing the wound until such time the wound was clean enough to perform a complete TMA. Therefore an isolated ray resection was performed. Using a #15 scalpel blade a fresh skin edge was obtained dorsally incision was brought distally and then medially along the medial aspect of the toe where 2 rec incisions were then performed medially at the base of the third toe and then excising the ulceration completely full-thickness. The toe was disarticulated by dividing the extensor flexor tendons as well as the capsular structures. Note that the toe is dorsally dislocated clinically. After amputation of the toe incision was made over the dorsal aspect of third metatarsal. The distal aspect of the surgical neck of the metatarsal was not abnormal color structure density. Therefore resection of the distal aspect of third metatarsal was performed. Toe and third distal third metatarsal was sent for pathology. The remaining distal aspect of the metatarsal was debrided with ultrasonic Misonix debrider successfully. The remaining bone was of normal color texture and density in character. All nonviable tissue was debrided down to the deep fascia/bone for suspected and clinically proven osteomyelitis. Cultures were taken aerobic and anaerobic swab cultures tissue cultures. After successfully debriding the wound the dorsal wound was closed loosely with 3-0 Prolene and the plantar wound was dressed with a wound VAC successfully. Unfortunately we did not see any active bleeding. This dissection and amputation was carried out without need for Bovie ligature. Estimated blood loss less than 5 mL complications encountered none after successfully applying the wound VAC patient was awoken extubated and sent to PACU in good condition with vital signs stable. This is considered a staged procedure once we have optimized his arterial flow improved the soft tissue envelope with local wound care and antibiotics will consider returning to the operating room to perform a complete TMA.
[2016-12-27] MEDS: Patient Taking Own Medication 1 EACH PO SCH (17:08)
[2016-12-27] MEDS ORDERED: Insulin LISPRO 300 UNITS/3 ML VIAL SQ SCH (18:00)
--- NOTE | 2016-12-27 20:04 | Vascular/Endovasc Consult Note ---
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 He has required debridement and will likely require a transmetatarsal amputation. He has abnormal ABIs. He has a diminished pulse exam. He will be scheduled for a right lower extremity arterial duplex. If significant disease is identified, he will require an angiogram and possible revascualrization. (2) Cellulitis Status: Chronic Qualifiers: Site of cellulitis: extremity Site of cellulitis of extremity: lower extremity Laterality: right Qualified Code(s): L03.115 - Cellulitis of right lower limb (3) Abscess of foot including toes Status: Acute Wound vac in place after toe amputation Qualifiers: Laterality: right Qualified Code(s): L02.611 - Cutaneous abscess of right foot (4) Diabetes mellitus type 2 with complications Status: Chronic The patient was counseled regarding risk factor reduction. Qualifiers: Diabetes mellitus half-way insulin use: with half-way use Qualified Code( s): E11.8 - Type 2 diabetes mellitus with unspecified complications; Z79.4 - penitentiary (current) use of insulin (5) Tobacco dependence Status: Acute The patient was counseled regarding smoking cessation. - History of Present Illness Consult date: 12/27/16 Requesting physician: Dylon Gomez Consult reason: Peripheral vascular disease with ulceration Chief complaint: right foot gangrene History of present illness: Mr. Escobar is a 56 year old male with a history of diabetes, anemia and tobacco abuse who presented to [facility] with a diabetic foot infection. He was seen by Dr. Gomez and required incision and drainage with a toe ampuation. The patient was reported to have minimal bleeding at the surgical site and concern for peripheral vascular disease arose. Dr. Gomez stated that he intends to perform a transmetatarsal amputation and vascular surgery has been consulted for further evaluation of his vascular status prior to the surgery. The patient denies any fevers or chills. He reports that his pain is well controlled. He denies chest pain or shortness of breath. Past Med Surg Social Fam HX - Past Medical History Medical history: diabetes, other Psychiatric history: no psych history - Past Surgical History Surgical History: other (First and second right toe amputation) - Social History Smoking Status: Current every day smoker Packs per day: 1 PPD Smokeless Tobacco Status: No Alcohol use: occasionally Drug use: none - Family History Father Race: Family Member Ethnicity: Non- Living Status: Age at : 83 Cause of : VT Hx Family Cardiac Disorders: Yes (VT, HD) Hx Family Cancer: Yes (Leukemia) Brother Race: Family Member Ethnicity: Non- Living Status: Age at : 58 Cause of : Cancer Hx Family Cancer: Yes (Unknown) Sister Race: Family Member Ethnicity: Non- Living Status: Age at : 55 Cause of : Breast cancer with metastases to the brain Hx Family Cancer: Yes (Breast, Brain) Mother Race: Family Member Ethnicity: Non- Living Status: Age at : 83 Cause of : Cancer Hx Family Cardiac Disorders: Yes (HD) Hx Family Respiratory Disorders: Yes Hx Family Cancer: Yes (Melanoma) Hx Family GI Disorders: No Hx Family Endocrine Disorder: Yes (DM, Thyroid disease) Hx Family Neuromuscular Disorders: No Hx Family Neurologic Disorders: No Hx Family HEENT Disorders: No Hx Family Autoimmune Disorders: No Medications and Allergies Ibuprofen/Pseudoephedrine HCl [Advil Cold & Sinus Caplet] 1 tab PO TID PRN 12/26 [History] Multivitamin [Multi-Day Vitamins] 1 each PO DAILY 01/10/16 [History] Linagliptin [Tradjenta] 5 mg PO DAILY 02/01/16 [History] metFORMIN [Glucophage] 500 mg PO BIDWM 02/01/16 [History] Gabapentin [Neurontin] 300 mg PO TID 05/15/16 [History] Insulin Glargine [Lantus] 20 unit SQ HS 05/15/16 [History] Insulin ASPART [NovoLOG] 0 unit SQ TIDWM 11/20/16 [History] Lactose-Reduced Food [Ensure High Protein] 1 bottle PO TIDWM 11/20/16 [History] Acetaminophen [Tylenol] 650 mg PO Q6HR PRN #0 tab 01/03/17 [Rx] Docusate [Colace] 100 mg PO BID PRN #30 capsule 01/03/17 [Rx] HYDROcodone/Acet 7.5/325 mg [[place] 7.5-325 mg] 1 tab PO Q4HR PRN #14 tab [Rx] Levofloxacin 750 MG/150 ML [Levaquin Premix 750mg/150 mL] 750 mg IVPB DAILY #40 bag 01/03/17 [Rx] Nicotine Patch [Nicoderm] 21 mg TD DAILY 01/03/17 [Rx] 3 Allergy/AdvReac Type Severity Reaction Status Date / Time No Known Allergies Allergy Verified 02/01/16 10:56 All Systems Review: A 10-system review of systems was performed and is negative for pertinent findings except as documented above in the HPI. - Constitutional Constitutional: no chills, no fever(s) Exam Vital Signs, Last 4 Hours Temp Pulse Resp BP Pulse Ox 12/27/16 19:48 97.9 F 81 16 104/57 98 12/27/16 18:07 98.1 F 84 15 106/57 98 12/27/16 16:56 98.5 F 83 16 103/65 98 General: Present: Conversant, No Apparent Distress HEENT: Present: Atraumatic, Trachea midline, Pupils equal Neck: Absent: JVD, Lymphadenopathy Cardiac: Present: Reg Rate and Rhythm, Normal S1 and S2 Lungs: Present: Normal Breath Sounds, No Wheeze, Rales, Rhonchi Neuro: Present: Alert and responsive, No focal deficits noted, Motor nerves grossly intact, Sensory nerves grossly intact Abdomen: Present: Soft, Non-tender. Absent: Masses Vascular: Present: Normal capillary refill, Pulse, normal (pedal signals are polyphasic bilaterally), Other. Absent: Cyanosis, Edema Skin: Present: Wound/ulcer(s) (Wound vac in place on right foot) Consult Discharge Plan - Plan Additional Instructions: Cleanse with saline, apply adaptic, 4x4 and kerlex- monitor for signs of dehiscence, monitor for signs of ischemia or infection. Call with any issues or concerns TLS drain will remain until evaluated in clinic- vacutainer not to be more than half full. Accurate documentation of output. Referrals: Jose G Leal MD [Primary Care Provider] - (in 1-2 weeks) Julissa Chacon CNP [Advanced Practice Nurse] - 01/21/17 9:00 am Dylon Gomez DPM [Partnered Physician] - (in 1 week) Prescriptions: HYDROcodone/Acet 7.5/325 mg [[place] 7.5-325 mg] 1 tab PO Q4HR PRN #14 tab PRN Reason: moderate to severe pain Docusate [Colace] 100 mg PO BID PRN #30 capsule PRN Reason: Constipation Levofloxacin 750 MG/150 ML [Levaquin Premix 750mg/150 mL] 750 mg IVPB DAILY #40 bag
[2016-12-27] MEDS: Insulin DETEMIR 100 UNIT/ML X5UNITS SQ SCH (21:28)
[2016-12-28] MEDS: *HR* HYDROcodone/Acet 7.5/325 mg TABLET PO PRN ×4 (01:11→21:44)
[2016-12-28 01:32] LABS: Basophils % 0.2 %; Eosinophils # 0.2 K/mcL (0.0-0.6); Eosinophils % 2.1 %; Hematocrit 31.1 % (37.5-50.1); Hemoglobin 10.1 g/dL (12.9-16.9); Immature Granulocytes % 0.3 % (0-4); Lymphocytes # 1.4 K/mcL (0.6-4.6); Lymphocytes % 13.9 %; Mean Corpuscular HGB Conc 32.5 g/dL (31.6-35.5); Mean Corpuscular Hemoglobin 31.9 pg (28.0-33.3); Mean Corpuscular Volume 98.1 fL (83.0-100.0); Mean Platelet Volume 10.3 fL (9.4-12.4); Monocytes # 1.1 K/mcL (0.0-1.3); Monocytes % 11.2 %; Neutrophils # 7.2 K/mcL (1.6-8.9); Platelet Count 263 K/mcL (140-400); Red Blood Count 3.17 M/mcL (4.19-5.50); Red Cell Distribution Width 12.9 % (11.5-14.5); Segmented Neutrophils % 72.3 %
[2016-12-28 01:46] LABS: BUN/Creatinine Ratio 18 (6-26); Blood Urea Nitrogen 13 mg/dL (8-26); Calcium 8.5 mg/dL (8.6-10.8); Carbon Dioxide 29 mEq/L (19-29); Chloride 102 mEq/L (98-109); Glucose 114 mg/dL (70-99); Magnesium 1.7 mg/dL (1.6-2.6); Osmolality,Calculated 283 (280-300); Potassium 4.2 mEq/L (3.5-4.5); Sodium 136 mEq/L (136-145); eGFR For African Americans > 60 (> 60); eGFR For Non-African Americans > 60 (> 60)
[2016-12-28] MEDS: *HR* Morphine 2 MG/ML SYRINGE IVP PRN ×3 (03:06→17:28)
[2016-12-28] MEDS: *HR* Heparin 5,000 UNIT/ML VIAL SQ SCH ×2 (05:16→17:28)
[2016-12-28] MEDS: Vancomycin 1,250 MG in D5% in Water 250 ML IVPB SCH ×2 (05:17→15:43)
[2016-12-28] MEDS: Patient Taking Own Medication 1 EACH PO SCH ×3 (08:03→15:46)
[2016-12-28] MEDS: Piperacillin/Tazobactam 3.375 GM in D5% in Water (Mini-Bag+) 100 ML IVPB SCH ×3 (08:03→23:15)
[2016-12-28] MEDS: Insulin LISPRO 300 UNITS/3 ML VIAL SQ SCH ×4 (08:04→21:44)
[2016-12-28] MEDS: Gabapentin 300 MG CAPSULE PO SCH ×3 (08:04→21:44)
[2016-12-28] MEDS: Pantoprazole 40 MG VIAL IVP SCH (08:04)
[2016-12-28] MEDS: Nicotine 21 MG PATCH.TD24 TD SCH (08:04)
[2016-12-28] MEDS ORDERED: Nicotine 21 MG PATCH.TD24 TD SCH (09:00)
[2016-12-28] MEDS ORDERED: *HR* Morphine 2 MG/ML SYRINGE IVP ONE (10:17)
--- NOTE | 2016-12-28 10:34 | Internal Med Progress Note ---
Date of Encounter: 12/28/16 Time of Encounter: 10:32 - Assessment and plan (1) Osteomyelitis of foot, right, acute Current Visit: Yes Status: Suspected Assessment and plan: Infectious disease consultation appreciated Podiatry consultation appreciated POD #1 (s/p incision of the bone cortex for OM #3 metatarsal, open amputation of toe #3 with metatarsal). (DOS: 12/27/16) f/u culture reports continue IV abx wound care as per podiatry IV fluids pain control (increased morphine to 4mg IV q4h prn severe pain) will closely monitor BP (2) Anemia of chronic disease Current Visit: Yes Status: Acute Assessment and plan: H&H low but acceptable no acute bleeding reported at this time will continue to closely monitor and transfuse as needed (3) Diabetes Current Visit: Yes Status: Chronic Assessment and plan: continue Levemir and ss insulin algorithm monitor FS and BG ADA diet Qualifiers: Diabetes mellitus type: type 2 Diabetes mellitus complication status: with skin complications Diabetes mellitus complication detail: with foot ulcer Diabetes mellitus manager long term care insulin use: with manager long term care use Qualified Code(s) : E11.621 - Type 2 diabetes mellitus with foot ulcer; L97.509 - Non-pressure chronic ulcer of other part of unspecified foot with unspecified severity; Z79.4 - custodial (current) use of insulin (4) DVT prophylaxis Current Visit: Yes Status: Acute Assessment and plan: Heparin SQ (5) Tobacco abuse counseling Current Visit: Yes Status: Acute Assessment and plan: smoking cessation counseling provided nicotine supplementation provided (6) Atherosclerosis of [place] arteries of right leg with ulceration of other part of foot Current Visit: Yes Status: Chronic Assessment and plan: Abnormal ABIs noted vascular surgery consultation appreciated will f/u RLE arterial duplex - Subjective Interval history: Pt seen and examined at bedside with family present at bedside. Pt was participating with physical therapy and ambulating with the walker in the room. He states his pain is not appropriately controlled with the current pain regimen. He is POD #1 (s/p incision of the bone cortex for OM #3 metatarsal, open amputation of toe #3 with metatarsal). No overnight issues reported. Noted to be hypotensive but asymptomatic. - Constitutional Vitals: Temp Pulse Resp BP Pulse Ox 98.2 F 68 16 104/56 98 12/28/16 06:33 12/28/16 06:33 12/28/16 06:33 12/28/16 06:33 12/28/16 06:33 General appearance: Present: cooperative, A&O X 3, pleasant, no acute distress, answers questions appropriately - Head Head exam: Present: atraumatic, normocephalic - Eye Eye exam: Present: conjuntiva pink, sclera anicteric - Respiratory Respiratory exam: Present: CTAB. Absent: accessory muscle use, rales, rhonchi, wheezes - Cardiovascular Cardiovascular exam: Present: RRR, +S1, +S2. Absent: diastolic murmur, gallop, rubs, systolic murmur - GI/Abdominal GI/Abdominal exam: Present: normal bowel sounds, soft, no peritoneal signs. Absent: distended, tenderness - Extremities Exam Extremities exam: Present: warm, radial pulses palpable and symmetrical. Absent : calf tenderness Additional comments: right foot dressing and wound vac intact - Neurological Exam Neurological exam: Present: alert, oriented X3 - Psychiatric Psychiatric exam: Present: normal affect, normal mood Internal Medicine: Result - Labs CBC & Chem 7: 12/28/16 01:04 12/28/16 01:04 Labs: Short CBC 12/28/16 Range/Units 01:04 WBC 10.0 (4.3-11.1) K/mcL Hgb 10.1 L (12.9-16.9) g/dL Hct 31.1 L (37.5-50.1) % Plt Count 263 (140-400) K/mcL Neutrophils # 7.2 (1.6-8.9) K/mcL BMP 12/28/16 01:04 Sodium 136 Potassium 4.2 Chloride 102 Carbon Dioxide 29 BUN 13 Creatinine 0.74 Glucose 114 H Calcium 8.5 L - ABG Interpretation ABG results: PT/INR, D-dimer PT 11.3 Seconds (9.4-12.1) 12/26/16 05:54 - VTE Documentation of Mechanical Device: Intermittent pneumatic compression device Consult Discharge Plan - Plan Referrals: Jose G Leal MD [Primary Care Provider] -
[2016-12-28] MEDS: 0.9 % Sodium Chloride 1,000 ML IVC SCH ×2 (11:34→23:21)
--- NOTE | 2016-12-28 11:54 | Arterial Study Report ---
LE Arterial Duplex Patient Name:Kody Escobar Order Number:[id number] Procedure Date:12/28/2016 Date:1960Age:56 yrs Gender:Male Location:[facility] Room #: 3NE23 Ladle Operator:SOPHIA CanT, [facility] Referring MD:Sky Sharif MD rn assessment:None Reading MD:Sky Sharif MD Primary Indications:Nonhealing right foot ulcer Risk Factors Yes/No Diabetes Yes Impressions: The right lower extremity is hemodynamically well maintained. No stenosis detected in the right lower extremity. Findings Arterial Duplex Results: Right: The PSV in the right distal external iliac artery is 126 cm/s. The PSV in the right common femoral artery is 141 cm/s. The PSV in the right proximal superficial femoral artery is 101 cm/s. The PSV in the right mid superficial femoral artery is 64 cm/s. The PSV in the right distal superficial femoral artery is 104 cm/s. The PSV in the right popliteal artery is 96 cm/s. The PSV in the right tibioperoneal trunk artery is 79 cm/s. The PSV in the right proximal posterior tibial artery is 100 cm/s. The PSV in the right mid posterior tibial artery is 66 cm/s. The PSV in the right distal posterior tibial artery is 59 cm/s. The PSV in the right proximal peroneal artery is 163 cm/s. The PSV in the right mid peroneal artery is 57 cm/s. The PSV in the right distal peroneal artery is 54 cm/s. The PSV in the right proximal profunda artery is 63 cm/s. LE Duplex Side Vessel PSV EDV Assessment Right Distal External Iliac 126 15 Right Common Femoral 141 17 Right Prox Superficial Femoral 101 13 Right Mid Superficial Femoral 64 15 Right Distal Superficial Femoral 104 19 Right Popliteal 96 25 Right Tibioperoneal Trunk 79 15 Right Prox Posterior Tibial 100 28 Right Mid Posterior Tibial 66 19 Right Distal Posterior Tibial 59 18 Right Proximal Peroneal 163 45 Right Mid Peroneal 57 21 Right Distal Peroneal 54 16 Right Proximal Profunda 63 0 TIBURCIO Updated by Sky Sharif MD on 12/28/2016 11:47:55 AM electronically signed on 12/28/2016 11:48:08 AM with status of Final
[2016-12-28] MEDS: Insulin DETEMIR 100 UNIT/ML X5UNITS SQ SCH (21:44)
--- NOTE | 2016-12-28 22:03 | Vascular/Endovas Progress Note ---
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 He has required debridement and will likely require a transmetatarsal amputation. He has abnormal ABIs. His right lower extremity arterial duplex reveals no significant stenosis in the right lower extremity arteries. He does not appear to have any large vessel disease. May proceed with tranmetatarsal amputation. Atheorsclerotic risk factor reduction was discussed with the patient. (2) Cellulitis Status: Chronic (3) Abscess of foot including toes Status: Acute (4) Diabetes mellitus type 2 with complications Status: Chronic (5) Tobacco dependence Status: Chronic - Subjective Interval history: The patient is alert and comfortable and reports adequate pain control. He denies any fevers or chills. He denies chest pain or shortness of breath. Vital Signs, Last 4 Hours Temp Pulse Resp BP Pulse Ox 12/28/16 20:27 97.8 F 80 17 104/58 98 - Physical Examination General: Present: Conversant, No Apparent Distress HEENT: Present: Pupils equal Cardiac: Present: Reg Rate and Rhythm Lungs: Present: Normal Breath Sounds Neuro: Present: Alert and responsive, No focal deficits noted Vascular: Present: Other (pedal signals polyphasic). Absent: Normal capillary refill, Cyanosis, Edema Abdomen: Present: Soft Skin: Present: Wound/ulcer(s) (wound vac in place) - VTE Documentation of Mechanical Device: Intermittent pneumatic compression device Results 01/03/17 05:14 01/03/17 05:14 Lab Results, Last 24 hours 12/28/16 12/28/16 01:04 01:04 WBC 10.0 Hgb 10.1 L Hct 31.1 L Plt Count 263 Sodium 136 Potassium 4.2 Chloride 102 Carbon Dioxide 29 BUN 13 Creatinine 0.74 Glucose 114 H Calcium 8.5 L Magnesium 1.7 - Imaging / Other Tests Non Invasive Vascular Testing: report reviewed, image reviewed (no significant stenosis in the right lower extremity vessels) Consult Discharge Plan - Plan Additional Instructions: Cleanse with saline, apply adaptic, 4x4 and kerlex- monitor for signs of dehiscence, monitor for signs of ischemia or infection. Call with any issues or concerns TLS drain will remain until evaluated in clinic- vacutainer not to be more than half full. Accurate documentation of output. Referrals: Jose G Leal MD [Primary Care Provider] - (in 1-2 weeks) Julissa Chacon CNP [Advanced Practice Nurse] - 01/21/17 9:00 am Dylon Gomez DPM [Partnered Physician] - (in 1 week) Prescriptions: HYDROcodone/Acet 7.5/325 mg [[place] 7.5-325 mg] 1 tab PO Q4HR PRN #14 tab PRN Reason: moderate to severe pain Docusate [Colace] 100 mg PO BID PRN #30 capsule PRN Reason: Constipation Levofloxacin 750 MG/150 ML [Levaquin Premix 750mg/150 mL] 750 mg IVPB DAILY #40 bag
[2016-12-29] MEDS: *HR* Morphine 2 MG/ML SYRINGE IVP PRN ×4 (01:12→20:50)
[2016-12-29 03:33] LABS: Basophils % 0.4 %; Eosinophils # 0.3 K/mcL (0.0-0.6); Eosinophils % 4.2 %; Hematocrit 31.2 % (37.5-50.1); Immature Granulocytes % 0.4 % (0-4); Immature Platelets 3.2 % (1.1-6.1); Lymphocytes # 1.2 K/mcL (0.6-4.6); Lymphocytes % 15.5 %; Mean Corpuscular HGB Conc 32.1 g/dL (31.6-35.5); Mean Corpuscular Hemoglobin 30.9 pg (28.0-33.3); Mean Corpuscular Volume 96.3 fL (83.0-100.0); Mean Platelet Volume 9.7 fL (9.4-12.4); Monocytes % 13.9 %; Neutrophils # 4.9 K/mcL (1.6-8.9); Platelet Count 286 K/mcL (140-400); Red Blood Count 3.24 M/mcL (4.19-5.50); Red Cell Distribution Width 12.7 % (11.5-14.5); Segmented Neutrophils % 65.6 %
[2016-12-29 03:44] LABS: BUN/Creatinine Ratio 11 (6-26); Blood Urea Nitrogen 8 mg/dL (8-26); Calcium 8.7 mg/dL (8.6-10.8); Carbon Dioxide 29 mEq/L (19-29); Chloride 106 mEq/L (98-109); Glucose 117 mg/dL (70-99); Magnesium 1.9 mg/dL (1.6-2.6); Osmolality,Calculated 287 (280-300); Phosphorous 2.5 mg/dL (2.3-4.7); Potassium 4.2 mEq/L (3.5-4.5); Sodium 139 mEq/L (136-145); eGFR For African Americans > 60 (> 60); eGFR For Non-African Americans > 60 (> 60)
[2016-12-29] MEDS: *HR* HYDROcodone/Acet 7.5/325 mg TABLET PO PRN ×4 (04:04→23:59)
[2016-12-29] MEDS: Vancomycin 1,250 MG in D5% in Water 250 ML IVPB SCH ×2 (04:05→15:22)
[2016-12-29] MEDS: *HR* Heparin 5,000 UNIT/ML VIAL SQ SCH ×2 (06:21→17:02)
[2016-12-29] MEDS: Patient Taking Own Medication 1 EACH PO SCH ×3 (07:41→16:56)
[2016-12-29] MEDS: Piperacillin/Tazobactam 3.375 GM in D5% in Water (Mini-Bag+) 100 ML IVPB SCH ×3 (07:58→23:51)
[2016-12-29] MEDS: Insulin LISPRO 300 UNITS/3 ML VIAL SQ SCH ×4 (07:59→20:45)
[2016-12-29] MEDS: Gabapentin 300 MG CAPSULE PO SCH ×3 (07:59→20:50)
[2016-12-29] MEDS: Nicotine 21 MG PATCH.TD24 TD SCH (07:59)
[2016-12-29] MEDS: Pantoprazole 40 MG VIAL IVP SCH (07:59)
--- NOTE | 2016-12-29 08:41 | Internal Med Progress Note ---
Date of Encounter: 12/29/16 Time of Encounter: 08:39 - Assessment and plan (1) Osteomyelitis of foot, right, acute Current Visit: Yes Status: Suspected Assessment and plan: Infectious disease consultation appreciated Podiatry consultation appreciated POD #2 (s/p incision of the bone cortex for OM #3 metatarsal, open amputation of toe #3 with metatarsal). (DOS: 12/27/16) Wound culture prelim report: Proteus Mirabilis and Gram negative lefty, will follow up final culture report continue IV abx wound care as per podiatry IV fluids pain control (2) Anemia of chronic disease Current Visit: Yes Status: Acute Assessment and plan: H&H low but acceptable no acute bleeding reported at this time will continue to closely monitor and transfuse as needed (3) Diabetes Current Visit: Yes Status: Chronic Assessment and plan: continue Levemir and ss insulin algorithm monitor FS and BG ADA diet Qualifiers: Diabetes mellitus type: type 2 Diabetes mellitus complication status: with skin complications Diabetes mellitus complication detail: with foot ulcer Diabetes mellitus usp insulin use: with usp use Qualified Code(s) : E11.621 - Type 2 diabetes mellitus with foot ulcer; L97.509 - Non-pressure chronic ulcer of other part of unspecified foot with unspecified severity; Z79.4 - jail (current) use of insulin (4) DVT prophylaxis Current Visit: Yes Status: Acute Assessment and plan: Heparin SQ (5) Tobacco abuse counseling Current Visit: Yes Status: Acute Assessment and plan: smoking cessation counseling provided nicotine supplementation provided (6) 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 Reports of pain being controlled with the current pain medications. POD #2 (s/p incision of the bone cortex for OM #3 metatarsal, open amputation of toe #3 with metatarsal) . No overnight issues reported. - Constitutional Vitals: Temp Pulse Resp BP Pulse Ox 98.1 F 69 18 99/59 94 12/29/16 06:46 12/29/16 06:46 12/29/16 06:46 12/29/16 06:46 12/29/16 06:46 General appearance: Present: cooperative, A&O X 3, pleasant, no acute distress, answers questions appropriately - Head Head exam: Present: atraumatic, normocephalic - Eye Eye exam: Present: conjuntiva pink, sclera anicteric - Respiratory Respiratory exam: Present: CTAB. Absent: accessory muscle use, rales, rhonchi, wheezes - Cardiovascular Cardiovascular exam: Present: RRR, +S1, +S2. Absent: diastolic murmur, gallop, rubs, systolic murmur - GI/Abdominal GI/Abdominal exam: Present: normal bowel sounds, soft, no peritoneal signs. Absent: distended, tenderness - Extremities Exam Extremities exam: Present: warm, radial pulses palpable and symmetrical. Absent : calf tenderness, cyanotic, pedal edema Additional comments: right foot dressing and wound vac intact - Neurological Exam Neurological exam: Present: alert, oriented X3 - Psychiatric Psychiatric exam: Present: normal affect, normal mood Internal Medicine: Result - Labs CBC & Chem 7: 12/29/16 03:21 12/29/16 03:21 Labs: Short CBC 12/29/16 Range/Units 03:21 WBC 7.5 (4.3-11.1) K/mcL Hgb 10.0 L (12.9-16.9) g/dL Hct 31.2 L (37.5-50.1) % Plt Count 286 (140-400) K/mcL Neutrophils # 4.9 (1.6-8.9) K/mcL BMP 12/29/16 03:21 Sodium 139 Potassium 4.2 Chloride 106 Carbon Dioxide 29 BUN 8 Creatinine 0.71 L Glucose 117 H Calcium 8.7 - ABG Interpretation ABG results: PT/INR, D-dimer PT 11.3 Seconds (9.4-12.1) 12/26/16 05:54 - VTE Documentation of Mechanical Device: Intermittent pneumatic compression device Consult Discharge Plan - Plan Referrals: Jose G Leal MD [Primary Care Provider] -
[2016-12-29] MEDS: 0.9 % Sodium Chloride 1,000 ML IVC SCH (11:21)
--- NOTE | 2016-12-29 11:36 | Podiatry Progress Note ---
Date of Encounter: 12/29/16 Time of Encounter: 11:30 Subjective Interval history: no acute events. wound vac functioning at 125 mm Hg with no leak. no excessive drainage in cannister. vascular note appreciated. will discuss with Dr. Gomez. Objective - Vital Signs Vital Signs: Vital Signs Temp Pulse Resp BP Pulse Ox 12/29/16 10:59 98.2 F 84 18 106/66 95 12/29/16 06:46 98.1 F 69 18 99/59 94 12/28/16 23:54 97.7 F 77 15 103/60 97 12/28/16 22:01 96 12/28/16 20:27 97.8 F 80 17 104/58 98 12/28/16 14:48 97.7 F 78 16 105/63 98 Intake and Output 12/28/16 12/29/16 12/29/16 23:59 07:59 15:59 Intake Total 1350 / 1350 100 / 100 1580 / 1580 Output Total 350 / 350 Balance 1000 / 1000 100 / 100 1573 / 1573 Intake: IV Fluids 1350 / 1350 100 / 100 1100 / 1100 0.9 % Sodium Chloride 1, 1000 / 1000 1000 / 1000 000 ML @ 100 mls/hr IVC . Q10H [facility] Rx#:[id number] Zosyn 3.375 GM In 100 / 100 100 / 100 100 / 100 Dextrose 5% (Minibag+) 100 ML 100 ML @ 25 mls/hr IVPB Q8HR [facility] Rx#: [id number] Vancocin 1,250 MG In 250 / 250 Dextrose 5% 250 ML @ 167 mls/hr IVPB Q12H [facility] Rx#: [id number] Oral 480 / 480 Output: Urine 350 / 350 Wound Drainage Right Foot Other: Meal Breakfast Percent of Meal Consumed 100% Weight 86.2 kg Blood Glucose* 254 174 133 Patient Weight 12/29/16 23:59 Weight 86.2 kg - Lab Result Diagrams: 12/29/16 03:21 12/29/16 03:21 Labs: Abnormal lab results RBC 3.24 M/mcL (4.19-5.50) L 12/29/16 03:21 Hgb 10.0 g/dL (12.9-16.9) L 12/29/16 03:21 Hct 31.2 % (37.5-50.1) L 12/29/16 03:21 ESR 115 mm/hr (0-10) H 12/25/16 16:06 APTT 66.5 Seconds (26.0-36.0) H 12/26/16 05:54 Creatinine 0.71 mg/dL (0.72-1.25) L 12/29/16 03:21 Glucose 117 mg/dL (70-99) H 12/29/16 03:21 POC Glucose 254 (58-89) H 12/28/16 20:11 LDL Cholesterol, Calc 101 mg/dL (0-99) H 12/26/16 05:54 HDL Cholesterol 29 mg/dL (40-59) L 12/26/16 05:54 Cholesterol/HDL Ratio 5.1 (0-4.9) H 12/26/16 05:54 Microbiology, Last 48 Hours 12/26/16 11:01 Wound Culture - Final Right Foot Proteus mirabilis Citrobacter freundii 12/26/16 18:56 Anaerobic Culture - Preliminary Right Foot At this time, no anaerobic growth is present. The culture will be finalized after 5 days of incubation. 12/26/16 11:01 Anaerobic Culture - Preliminary Right Foot At this time, no anaerobic growth is present. The culture will be finalized after 5 days of incubation. 12/26/16 18:56 Wound Culture - Final Right Foot Proteus mirabilis Citrobacter freundii 12/27/16 13:06 Wound Culture - Preliminary Right Foot Proteus mirabilis Gram Negative [place] 12/27/16 13:06 Surgical Biopsy Culture - Preliminary Right Foot Proteus mirabilis Gram Negative Arnulfo 12/27/16 13:06 Gram Stain - Final Right Foot - VTE Documentation of Mechanical Device: Intermittent pneumatic compression device Consult Discharge Plan - Plan Referrals: Jose G Leal MD [Primary Care Provider] -
[2016-12-29] MEDS: Insulin DETEMIR 100 UNIT/ML X5UNITS SQ SCH (20:50)
[2016-12-30] MEDS: *HR* Morphine 2 MG/ML SYRINGE IVP PRN ×2 (03:17→11:17)
[2016-12-30] MEDS: Vancomycin 1,250 MG in D5% in Water 250 ML IVPB SCH (04:19)
[2016-12-30] MEDS: *HR* Heparin 5,000 UNIT/ML VIAL SQ SCH ×2 (05:04→17:10)
[2016-12-30 05:37] LABS: Basophils % 0.2 %; Eosinophils # 0.3 K/mcL (0.0-0.6); Eosinophils % 3.2 %; Hemoglobin 9.7 g/dL (12.9-16.9); Immature Granulocytes % 0.4 % (0-4); Lymphocytes # 1.2 K/mcL (0.6-4.6); Lymphocytes % 12.8 %; Mean Corpuscular HGB Conc 31.3 g/dL (31.6-35.5); Mean Corpuscular Hemoglobin 30.2 pg (28.0-33.3); Mean Corpuscular Volume 96.6 fL (83.0-100.0); Mean Platelet Volume 10.7 fL (9.4-12.4); Monocytes # 1.2 K/mcL (0.0-1.3); Monocytes % 12.5 %; Neutrophils # 6.8 K/mcL (1.6-8.9); Platelet Count 295 K/mcL (140-400); Red Blood Count 3.21 M/mcL (4.19-5.50); Red Cell Distribution Width 12.7 % (11.5-14.5); Segmented Neutrophils % 70.9 %
[2016-12-30 05:39] LABS: BUN/Creatinine Ratio 14 (6-26); Blood Urea Nitrogen 9 mg/dL (8-26); Calcium 8.6 mg/dL (8.6-10.8); Carbon Dioxide 24 mEq/L (19-29); Chloride 106 mEq/L (98-109); Glucose 110 mg/dL (70-99); Magnesium 1.8 mg/dL (1.6-2.6); Osmolality,Calculated 283 (280-300); Phosphorous 2.3 mg/dL (2.3-4.7); Potassium 4.1 mEq/L (3.5-4.5); Sodium 137 mEq/L (136-145); eGFR For African Americans > 60 (> 60); eGFR For Non-African Americans > 60 (> 60)
[2016-12-30] MEDS: *HR* HYDROcodone/Acet 7.5/325 mg TABLET PO PRN ×3 (07:46→21:25)
[2016-12-30] MEDS: Gabapentin 300 MG CAPSULE PO SCH ×3 (07:46→21:25)
[2016-12-30] MEDS: Nicotine 21 MG PATCH.TD24 TD SCH (07:46)
[2016-12-30] MEDS: Piperacillin/Tazobactam 3.375 GM in D5% in Water (Mini-Bag+) 100 ML IVPB SCH ×3 (07:46→23:43)
[2016-12-30] MEDS: Pantoprazole 40 MG VIAL IVP SCH (07:47)
[2016-12-30] MEDS: Patient Taking Own Medication 1 EACH PO SCH ×3 (07:47→19:20)
[2016-12-30] MEDS: Insulin LISPRO 300 UNITS/3 ML VIAL SQ SCH ×4 (07:47→21:32)
--- NOTE | 2016-12-30 08:22 | Infectious Disease Progress No ---
Date of Encounter: 12/30/16 Time of Encounter: 08:22 - Assessment and Plan (1) Osteomyelitis of foot, right, acute Current Visit: Yes Status: Suspected Labs on admission revealed WBC 12.6, ESR 115, lactic acid 0.7, right foot x-ray reveals no osseous abnormality An x-ray was done but x-rays are not very sensitive for osteomyelitis Consider getting MRI if okay with podiatry. Patient restarted on vancomycin and Zosyn on 12/27/16 12/26/16 blood culture showed no growth to date 12/26/16 Wound cultures positive for Proteus mirabilis and Citrobacter freundii resistant to cefazolin and tigecycline 12/27/16 Wound cultures positive for Proteus mirabilis and gram-negative rods Recommendations: Discontinue vancomycin. Continue Zosyn for now until anaerobic cultures back. Duration of treatment depends on clinical course. Continue to monitor for drug toxicities and dose adjust antibiotics accordingly Contact isolation because of recent history of MRSA (2) Diabetic foot ulcer Current Visit: Yes Status: Acute Right foot x-ray revealed Status post amputation of the 1st and 2nd digits with no obvious soft tissue injury to explain the patient's symptoms. No acute osseous abnormality. Prominent heel spur.Doppler revealed right lower extremity is hemodynamically well maintained. No stenosis detected in the right lower extremity Abnormal ABIs, anticipate tranmetatarsal amputation per vascular surgery Qualifiers: Diabetic foot ulcer location: unspecified part of foot Diabetes mellitus type: type 2 Laterality: right Non-pressure ulcer stage: unspecified non- pressure ulcer stage Qualified Code(s): E11.621 - Type 2 diabetes mellitus with foot ulcer; L97.519 - Non-pressure chronic ulcer of other part of right foot with unspecified severity (3) Diabetes mellitus type 2 with complications Current Visit: Yes Status: Acute Continue management per primary team. 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 No acute events overnight. POD #3 s/p incision of the bone cortex for OM #3 metatarsal, open amputation of toe #3 with metatarsal. He reports left knee pain this morning. Patient denies fever, chills, chest pain, shortness of breath, nausea, vomiting, diarrhea, or constipation. Infect Dis PN-Objective Data - Labs CBC & Chem 7: 12/30/16 04:55 12/30/16 04:55 Labs: Laboratory Results - last 24 hr 12/29/16 12/29/16 12/29/16 06:49 11:00 15:58 WBC RBC Hgb Hct MCV MCH MCHC RDW Plt Count MPV Immature Gran % Seg Neutrophils % Lymphocytes % Monocytes % Eosinophils % Basophils % Neutrophils # Lymphocytes # Monocytes # Eosinophils # Basophils # Sodium Potassium Chloride Carbon Dioxide BUN Creatinine Est GFR ( Amer) Est GFR (Non-Af Amer) BUN/Creatinine Ratio Glucose POC Glucose 174 H 133 H 227 H Calculated Osmolality Calcium Phosphorus Magnesium 12/29/16 12/30/16 12/30/16 20:30 04:55 04:55 WBC 9.6 RBC 3.21 L Hgb 9.7 L Hct 31.0 L MCV 96.6 MCH 30.2 MCHC 31.3 L RDW 12.7 Plt Count 295 MPV 10.7 Immature Gran % 0.4 Seg Neutrophils % 70.9 Lymphocytes % 12.8 Monocytes % 12.5 Eosinophils % 3.2 Basophils % 0.2 Neutrophils # 6.8 Lymphocytes # 1.2 Monocytes # 1.2 Eosinophils # 0.3 Basophils # 0.0 Sodium 137 Potassium 4.1 Chloride 106 Carbon Dioxide 24 BUN 9 Creatinine 0.64 L Est GFR ( Amer) > 60 Est GFR (Non-Af Amer) > 60 BUN/Creatinine Ratio 14 Glucose 110 H POC Glucose 138 H Calculated Osmolality 283 Calcium 8.6 Phosphorus 2.3 Magnesium 1.8 Cultures: Cultures 12/27/16 13:06 Anaerobic Culture - Preliminary Right Foot At this time, no anaerobic growth is present. The culture will be finalized after 5 days of incubation. 12/27/16 13:06 Surgical Biopsy Culture - Preliminary Right Foot Proteus mirabilis Gram Negative Arnulfo 12/26/16 11:01 Wound Culture - Final Right Foot Proteus mirabilis Citrobacter freundii 12/26/16 18:56 Anaerobic Culture - Preliminary Right Foot At this time, no anaerobic growth is present. The culture will be finalized after 5 days of incubation. 12/26/16 11:01 Anaerobic Culture - Preliminary Right Foot At this time, no anaerobic growth is present. The culture will be finalized after 5 days of incubation. 12/26/16 18:56 Wound Culture - Final Right Foot Proteus mirabilis Citrobacter freundii 12/27/16 13:06 Wound Culture - Preliminary Right Foot Proteus mirabilis Gram Negative Arnulfo 12/27/16 13:06 Gram Stain - Final Right Foot 12/26/16 12:29 Blood Culture - Preliminary Peripheral Venipuncture No growth. 12/26/16 12:29 Blood Culture - Preliminary Peripheral Venipuncture No growth. Exam - Constitutional Vitals: Temp Pulse Resp BP Pulse Ox 98.2 F 76 18 114/67 93 12/30/16 06:44 12/30/16 06:44 12/30/16 06:44 12/30/16 06:44 12/30/16 06:44 General appearance: cooperative, no acute distress, no febrile - Head Head exam: Present: atraumatic, normal inspection, normocephalic - Eye Eye exam: Present: PERRL, conjuntiva pink - ENT ENT exam: Present: mucous membranes moist, normal oropharynx - Neck Neck exam: Present: full ROM, normal inspection - Respiratory Respiratory exam: Present: CTAB. Absent: rhonchi, wheezes - Cardiovascular Cardiovascular exam: Present: RRR, +S1, +S2 - GI/Abdominal GI/Abdominal exam: Present: normal bowel sounds, soft. Absent: guarding, rebound - Extremities Exam Additional comments: Right foot wound VAC in place, dressing intact. No active leading, and decreased range of motion left knee - Neurological Exam Neurological exam: Present: alert, oriented X3. Absent: altered - Psychiatric Psychiatric exam: Present: normal affect, normal mood - Skin Additional comments: Right leg wound VAC in place, dressing intact. No proximal streaking, - VTE Documentation of Mechanical Device: Intermittent pneumatic compression device Consult Discharge Plan - Plan Referrals: Jose G Leal MD [Primary Care Provider] - - Attending Attestation I examined this patient and my medical decision-making was reviewed with the Resident Physician. I agree with the documented findings, disposition and treatment plan as described except to the extent set forth below.
--- NOTE | 2016-12-30 09:00 | Internal Med Progress Note ---
Date of Encounter: 12/30/16 Time of Encounter: 08:58 - Assessment and plan (1) Osteomyelitis of foot, right, acute Current Visit: Yes Status: Suspected Assessment and plan: Infectious disease consultation appreciated Podiatry consultation appreciated POD #3 (s/p incision of the bone cortex for OM #3 metatarsal, open amputation of toe #3 with metatarsal). (DOS: 12/27/16) Wound culture prelim report: Proteus Mirabilis and Gram negative lefty, will follow up final culture report continue IV abx as per infectious disease wound care as per podiatry pain control (2) Anemia of chronic disease Current Visit: Yes Status: Acute Assessment and plan: H&H low but acceptable no acute bleeding reported at this time will continue to closely monitor and transfuse as needed (3) Diabetes Current Visit: Yes Status: Chronic Assessment and plan: continue Levemir and ss insulin algorithm monitor FS and BG ADA diet Qualifiers: Diabetes mellitus type: type 2 Diabetes mellitus complication status: with skin complications Diabetes mellitus complication detail: with foot ulcer Diabetes mellitus long term care social worker insulin use: with skilled nursing use Qualified Code(s) : E11.621 - Type 2 diabetes mellitus with foot ulcer; L97.509 - Non-pressure chronic ulcer of other part of unspecified foot with unspecified severity; Z79.4 - jail (current) use of insulin (4) DVT prophylaxis Current Visit: Yes Status: Acute Assessment and plan: Heparin SQ (5) Tobacco abuse counseling Current Visit: Yes Status: Acute Assessment and plan: smoking cessation counseling provided nicotine supplementation provided (6) Atherosclerosis of [place] arteries of right leg with ulceration of other part of foot Current Visit: Yes Status: Chronic Assessment and plan: Abnormal ABIs noted RLE arterial duplex reported no significant stenosis Pt clear to proceed with transmetatarsal amputation from vascular stand point vascular surgery consultation appreciated (7) Left knee pain Current Visit: Yes Status: Acute Assessment and plan: will obtain Left knee xray supportive care (rest, ice, compression, and elevation) Qualifiers: Chronicity: acute Qualified Code(s): M25.562 - Pain in left knee - Subjective Interval history: Pt seen and examined at bedside with family present at bedside. reports of severe pain in left knee, upable to completely extend the knee. States this started abruptly yesterday. Reports of right foot pain being appropriately controlled with the current pain medications. POD #3 (s/p incision of the bone cortex for OM #3 metatarsal, open amputation of toe #3 with metatarsal). No overnight issues reported. - Constitutional Vitals: Temp Pulse Resp BP Pulse Ox 98.2 F 76 18 114/67 93 12/30/16 06:44 12/30/16 06:44 12/30/16 06:44 12/30/16 06:44 12/30/16 06:44 General appearance: Present: cooperative, A&O X 3, pleasant, no acute distress, answers questions appropriately - Head Head exam: Present: atraumatic, normocephalic - Eye Eye exam: Present: conjuntiva pink, sclera anicteric - Respiratory Respiratory exam: Present: CTAB. Absent: respiratory distress, wheezes - Cardiovascular Cardiovascular exam: Present: RRR, +S1, +S2. Absent: diastolic murmur, gallop, rubs, systolic murmur - GI/Abdominal GI/Abdominal exam: Present: normal bowel sounds, soft, no peritoneal signs. Absent: distended, tenderness - Extremities Exam Extremities exam: Present: warm, radial pulses palpable and symmetrical. Absent : calf tenderness Additional comments: right foot dressing and wound vac intact unable to extend left knee above 45degree angle, no erythema or swelling noted on lt knee - Neurological Exam Neurological exam: Present: alert, oriented X3 - Psychiatric Psychiatric exam: Present: normal affect, normal mood Internal Medicine: Result - Labs CBC & Chem 7: 12/30/16 04:55 12/30/16 04:55 Labs: Short CBC 12/30/16 Range/Units 04:55 WBC 9.6 (4.3-11.1) K/mcL Hgb 9.7 L (12.9-16.9) g/dL Hct 31.0 L (37.5-50.1) % Plt Count 295 (140-400) K/mcL Neutrophils # 6.8 (1.6-8.9) K/mcL BMP 12/30/16 04:55 Sodium 137 Potassium 4.1 Chloride 106 Carbon Dioxide 24 BUN 9 Creatinine 0.64 L Glucose 110 H Calcium 8.6 - ABG Interpretation ABG results: PT/INR, D-dimer PT 11.3 Seconds (9.4-12.1) 12/26/16 05:54 - VTE Documentation of Mechanical Device: Intermittent pneumatic compression device Consult Discharge Plan - Plan Referrals: Jose G Leal MD [Primary Care Provider] -
--- NOTE | 2016-12-30 13:41 | Podiatry Progress Note ---
Date of Encounter: 12/30/16 Time of Encounter: 13:00 - Assessment and Plan (1) Diabetic foot ulcer Current Visit: Yes Status: Acute s/p incision bone cortex for osteomyelitis #3 metatarsal, open amputation of toe #3 with metatarsal, apply wound vac by Dr. Gomez on 12/24/16. WBC: 9.6, a febrile. Wound vac changed at bedside. Connected to 125 mmhg continuous suction. 25 mls of sersanguineous drainage observed to canister. Vascular note appreciated. Infectious disease noted appreciated. Blood Cultures: NGTD, Wound cultures isolated Proteus mirabilis and citrobacter freundii. Infectious Disease discontinued vancomycin. Currently on Zosyn. Dr. Gomez to plan on taking patient to OR on 01/02/17 for a right TMA. Qualifiers: Diabetic foot ulcer location: unspecified part of foot Diabetes mellitus type: type 2 Laterality: right Non-pressure ulcer stage: unspecified non- pressure ulcer stage Qualified Code(s): E11.621 - Type 2 diabetes mellitus with foot ulcer; L97.519 - Non-pressure chronic ulcer of other part of right foot with unspecified severity (2) Diabetes Current Visit: Yes Status: Chronic Qualifiers: Diabetes mellitus type: type 2 Diabetes mellitus complication status: with skin complications Diabetes mellitus complication detail: with foot ulcer Diabetes mellitus terminal gauger insulin use: with fpc use Qualified Code(s) : E11.621 - Type 2 diabetes mellitus with foot ulcer; L97.509 - Non-pressure chronic ulcer of other part of unspecified foot with unspecified severity; 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 Gomez on 12/24/16. Patient is lying in bed eating lunch with cousin at bedside. Wound vac intact connected to 125 mmhg continuous suction. Dressing dry. Patient states right foot is painful. No c/o fever, chills, cp, sob or flu like symptoms. Objective - Vital Signs Vital Signs: Vital Signs Temp Pulse Resp BP Pulse Ox 12/30/16 11:04 98.1 F 77 16 119/67 94 12/30/16 06:44 98.2 F 76 18 114/67 93 12/30/16 03:16 79 118/67 12/29/16 23:38 97.7 F 80 18 128/81 96 12/29/16 20:14 97.8 F 81 18 131/84 96 12/29/16 20:01 130/68 12/29/16 15:56 98.2 F 76 18 97/59 93 Intake and Output 12/29/16 12/30/16 12/30/16 23:59 07:59 15:59 Intake Total 550 / 550 350 / 350 Output Total 1025 / 1025 275 / 275 Balance 550 / 550 -675 / -675 -275 / -275 Intake: IV Fluids 350 / 350 350 / 350 Zosyn 3.375 GM In 100 / 100 100 / 100 Dextrose 5% (Minibag+) 100 ML 100 ML @ 25 mls/hr IVPB Q8HR [facility] Rx#: [id number] Vancocin 1,250 MG In 250 / 250 250 / 250 Dextrose 5% 250 ML @ 167 mls/hr IVPB Q12H [facility] Rx#: [id number] Oral 200 / 200 Output: Urine 1025 / 1025 275 / 275 Other: Meal Breakfast Percent of Meal Consumed 95% Weight 86.6 kg Blood Glucose* 138 122 224 Patient Weight 12/30/16 23:59 Weight 86.6 kg - Exam Exam: General appearance: alert awake oriented X 3. Calm and pleasant, no acute distress.. Vascular: Pedal pulses +2/4 DP/PT , No evidence of cyanosis, pallor or rubor, Edema graded at 1+/4, Skin Temperature warm, No calf pain with manual compression. capillary refill time is immediate to digits. Neurologic: Sensation intact with light touch to foot. Postop Exam: S/P Sutures intact to incision line, no signs of dehiscence. VAC removed. Full thickness wound measuring 3 cm in length x 2 cm in width, x 1.5 cm in depth, base of wound with fibrous tissue. Light periwound erythema, no streaking. Toes #4 and #5 are pink warm and dry. No pus, no odor. 25 mls of serosanguineous drainage observed to chamber. - Lab Result Diagrams: 12/30/16 04:55 12/30/16 04:55 Labs: Abnormal lab results RBC 3.21 M/mcL (4.19-5.50) L 12/30/16 04:55 Hgb 9.7 g/dL (12.9-16.9) L 12/30/16 04:55 Hct 31.0 % (37.5-50.1) L 12/30/16 04:55 MCHC 31.3 g/dL (31.6-35.5) L 12/30/16 04:55 ESR 115 mm/hr (0-10) H 12/25/16 16:06 APTT 66.5 Seconds (26.0-36.0) H 12/26/16 05:54 Creatinine 0.64 mg/dL (0.72-1.25) L 12/30/16 04:55 Glucose 110 mg/dL (70-99) H 12/30/16 04:55 POC Glucose 138 (58-89) H 12/29/16 20:30 LDL Cholesterol, Calc 101 mg/dL (0-99) H 12/26/16 05:54 HDL Cholesterol 29 mg/dL (40-59) L 12/26/16 05:54 Cholesterol/HDL Ratio 5.1 (0-4.9) H 12/26/16 05:54 Microbiology, Last 48 Hours 12/27/16 13:06 Surgical Biopsy Culture - Final Right Foot Proteus mirabilis Citrobacter freundii 12/27/16 13:06 Wound Culture - Final Right Foot Proteus mirabilis Citrobacter freundii 12/27/16 13:06 Anaerobic Culture - Preliminary Right Foot At this time, no anaerobic growth is present. The culture will be finalized after 5 days of incubation. 12/26/16 11:01 Wound Culture - Final Right Foot Proteus mirabilis Citrobacter freundii 12/26/16 18:56 Anaerobic Culture - Preliminary Right Foot At this time, no anaerobic growth is present. The culture will be finalized after 5 days of incubation. 12/26/16 11:01 Anaerobic Culture - Preliminary Right Foot At this time, no anaerobic growth is present. The culture will be finalized after 5 days of incubation. 12/26/16 18:56 Wound Culture - Final Right Foot Proteus mirabilis Citrobacter freundii - VTE Documentation of Mechanical Device: Intermittent pneumatic compression device Consult Discharge Plan - Plan Referrals: Jose G Leal MD [Primary Care Provider] -
[2016-12-30] MEDS: Insulin DETEMIR 100 UNIT/ML X5UNITS SQ SCH (21:25)
[2016-12-31] MEDS: *HR* Morphine 2 MG/ML SYRINGE IVP PRN ×3 (01:32→20:31)
[2016-12-31] MEDS: *HR* HYDROcodone/Acet 7.5/325 mg TABLET PO PRN ×2 (04:13→11:13)
[2016-12-31] MEDS: *HR* Heparin 5,000 UNIT/ML VIAL SQ SCH ×2 (05:24→17:48)
[2016-12-31 05:40] LABS: Basophils # 0.1 K/mcL (0.0-0.2); Basophils % 0.6 %; Eosinophils # 0.3 K/mcL (0.0-0.6); Eosinophils % 3.1 %; Hematocrit 30.6 % (37.5-50.1); Hemoglobin 9.9 g/dL (12.9-16.9); Immature Granulocytes % 0.4 % (0-4); Lymphocytes # 1.6 K/mcL (0.6-4.6); Mean Corpuscular HGB Conc 32.4 g/dL (31.6-35.5); Mean Corpuscular Hemoglobin 31.2 pg (28.0-33.3); Mean Corpuscular Volume 96.5 fL (83.0-100.0); Mean Platelet Volume 10.6 fL (9.4-12.4); Platelet Count 301 K/mcL (140-400); Red Blood Count 3.17 M/mcL (4.19-5.50); Segmented Neutrophils % 62.9 %
[2016-12-31 05:53] LABS: BUN/Creatinine Ratio 14 (6-26); Blood Urea Nitrogen 10 mg/dL (8-26); Calcium 8.9 mg/dL (8.6-10.8); Carbon Dioxide 27 mEq/L (19-29); Chloride 105 mEq/L (98-109); Glucose 106 mg/dL (70-99); Magnesium 1.8 mg/dL (1.6-2.6); Osmolality,Calculated 283 (280-300); Phosphorous 2.9 mg/dL (2.3-4.7); Potassium 3.9 mEq/L (3.5-4.5); Sodium 137 mEq/L (136-145); eGFR For African Americans > 60 (> 60); eGFR For Non-African Americans > 60 (> 60)
[2016-12-31] MEDS: Piperacillin/Tazobactam 3.375 GM in D5% in Water (Mini-Bag+) 100 ML IVPB SCH ×2 (07:41→15:15)
[2016-12-31] MEDS: Nicotine 21 MG PATCH.TD24 TD SCH (07:42)
[2016-12-31] MEDS: Gabapentin 300 MG CAPSULE PO SCH ×3 (07:44→20:31)
[2016-12-31] MEDS: Insulin LISPRO 300 UNITS/3 ML VIAL SQ SCH ×4 (07:53→20:29)
--- NOTE | 2016-12-31 10:18 | Infectious Disease Progress No ---
Date of Encounter: 12/31/16 Time of Encounter: 10:17 - Assessment and Plan (1) Osteomyelitis of foot, right, acute Current Visit: Yes Status: Suspected Labs on admission revealed WBC 12.6, ESR 115, lactic acid 0.7, right foot x-ray reveals no osseous abnormality An x-ray was done but x-rays are not very sensitive for osteomyelitis Consider getting MRI if okay with podiatry. Patient restarted on vancomycin and Zosyn on 12/27/16 12/26/16 blood culture showed no growth to date 12/26/16 Wound cultures positive for Proteus mirabilis and Citrobacter freundii resistant to cefazolin and tigecycline 12/27/16 Wound cultures positive for Proteus mirabilis and Citrobacter freundii Anticipate right TMA on 01/02/17 per Recommendations: Continue Zosyn for now until anaerobic cultures back. Duration of treatment depends on clinical course. Continue to monitor for drug toxicities and dose adjust antibiotics accordingly Contact isolation because of recent history of MRSA (2) Diabetic foot ulcer Current Visit: Yes Status: Acute Right foot x-ray revealed Status post amputation of the 1st and 2nd digits with no obvious soft tissue injury to explain the patient's symptoms. No acute osseous abnormality. Prominent heel spur.Doppler revealed right lower extremity is hemodynamically well maintained. No stenosis detected in the right lower extremity Abnormal ABIs, anticipate tranmetatarsal amputation per vascular surgery Qualifiers: Diabetic foot ulcer location: unspecified part of foot Diabetes mellitus type: type 2 Laterality: right Non-pressure ulcer stage: unspecified non- pressure ulcer stage Qualified Code(s): E11.621 - Type 2 diabetes mellitus with foot ulcer; L97.519 - Non-pressure chronic ulcer of other part of right foot with unspecified severity (3) Diabetes mellitus type 2 with complications Current Visit: Yes Status: Acute Continue management per primary team. Qualifiers: Diabetes mellitus senior living insulin use: with senior living use Qualified Code( s): E11.8 - Type 2 diabetes mellitus with unspecified complications; Z79.4 - [facility] (current) use of insulin (4) Peripheral neuropathy Current Visit: No Status: Chronic Qualifiers: Peripheral neuropathy type: polyneuropathy associated with underlying disease Qualified Code(s): G63 - Polyneuropathy in diseases classified elsewhere (5) Tobacco dependence Current Visit: Yes Status: Acute - Subjective Interval history: Patient seen and examined. No acute events overnight. POD #4 s/p incision of the bone cortex for OM #3 metatarsal, open amputation of toe #3 with metatarsal. Patient denies fever, chills, chest pain, shortness of breath, nausea, vomiting, diarrhea, or constipation. Infect Dis PN-Objective Data - Labs CBC & Chem 7: 12/31/16 04:58 12/31/16 04:58 Labs: Laboratory Results - last 24 hr 12/30/16 12/31/16 12/31/16 20:10 04:58 04:58 WBC 8.0 RBC 3.17 L Hgb 9.9 L Hct 30.6 L MCV 96.5 MCH 31.2 MCHC 32.4 RDW 13.0 Plt Count 301 MPV 10.6 Immature Gran % 0.4 Seg Neutrophils % 62.9 Lymphocytes % 20.0 Monocytes % 13.0 Eosinophils % 3.1 Basophils % 0.6 Neutrophils # 5.0 Lymphocytes # 1.6 Monocytes # 1.0 Eosinophils # 0.3 Basophils # 0.1 Sodium 137 Potassium 3.9 Chloride 105 Carbon Dioxide 27 BUN 10 Creatinine 0.70 L Est GFR ( Amer) > 60 Est GFR (Non-Af Amer) > 60 BUN/Creatinine Ratio 14 Glucose 106 H POC Glucose 155 H Calculated Osmolality 283 Calcium 8.9 Phosphorus 2.9 Magnesium 1.8 Cultures: Cultures 12/26/16 18:56 Anaerobic Culture - Final Right Foot No anaerobes were recovered. 12/26/16 11:01 Anaerobic Culture - Final Right Foot No anaerobes were recovered. 12/27/16 13:06 Surgical Biopsy Culture - Final Right Foot Proteus mirabilis Citrobacter freundii 12/27/16 13:06 Wound Culture - Final Right Foot Proteus mirabilis Citrobacter freundii 12/27/16 13:06 Anaerobic Culture - Preliminary Right Foot At this time, no anaerobic growth is present. The culture will be finalized after 5 days of incubation. 12/26/16 11:01 Wound Culture - Final Right Foot Proteus mirabilis Citrobacter freundii 12/26/16 18:56 Wound Culture - Final Right Foot Proteus mirabilis Citrobacter freundii 12/27/16 13:06 Gram Stain - Final Right Foot 12/26/16 12:29 Blood Culture - Preliminary Peripheral Venipuncture No growth. 12/26/16 12:29 Blood Culture - Preliminary Peripheral Venipuncture No growth. - Impressions Impressions Knee X-Ray 12/30/16 08:56 IMPRESSION: Minimal degenerative changes without acute osseous abnormality. D/ / Bev Silverman MD / Bev Silverman MD Interpreting Provider: Bev Silverman MD Exam - Constitutional Vitals: Temp Pulse Resp BP Pulse Ox 98.1 F 71 16 120/74 91 12/31/16 07:03 12/31/16 08:41 12/31/16 07:03 12/31/16 08:41 12/31/16 08:41 General appearance: cooperative, no acute distress, no febrile - Head Head exam: Present: atraumatic, normal inspection, normocephalic - Eye Eye exam: Present: PERRL, conjuntiva pink - ENT ENT exam: Present: mucous membranes moist, normal oropharynx - Neck Neck exam: Present: full ROM, normal inspection - Respiratory Respiratory exam: Present: CTAB. Absent: rhonchi, wheezes - Cardiovascular Cardiovascular exam: Present: RRR, +S1, +S2 - GI/Abdominal GI/Abdominal exam: Present: normal bowel sounds, soft. Absent: guarding, rebound, tenderness - Extremities Exam Additional comments: Right foot wound VAC in place with serosanguineous drainage, dressing intact. No active bleeding - Neurological Exam Neurological exam: Present: alert, oriented X3. Absent: altered - Psychiatric Psychiatric exam: Present: normal affect, normal mood - Skin Additional comments: Right leg wound VAC in place, dressing intact. No proximal streaking - VTE Documentation of Mechanical Device: Intermittent pneumatic compression device Consult Discharge Plan - Plan Referrals: Jose G Leal MD [Primary Care Provider] - - Attending Attestation I examined this patient and my medical decision-making was reviewed with the Resident Physician. I agree with the documented findings, disposition and treatment plan as described except to the extent set forth below.
[2016-12-31] MEDS: Patient Taking Own Medication 1 EACH PO SCH ×3 (11:10→17:22)
--- NOTE | 2016-12-31 13:02 | Podiatry Progress Note ---
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 Gomez on 12/24/16. WBC 8.0 afebrile Plan: Continue wound vac therapy Plan is right TMA on 01/02/17 per Blood Cultures: NGTD, Wound cultures isolated Proteus mirabilis and citrobacter freundii. Infectious Disease discontinued vancomycin. Currently on Zosyn. Vascular note appreciated. Infectious disease noted appreciated.. Due to patients complaints of pain, will write for 1x dose of dilaudid 0.5mg IVP - Patient has had occasional low BP- please monitor BP Prior to administration- do not administer for SBP <95 Qualifiers: Qualified Code(s): E11.621 - Type 2 diabetes mellitus with foot ulcer; L97.519 - Non-pressure chronic ulcer of other part of right foot with unspecified severity Subjective Interval history: Patient is s/p incision bone cortex for osteomyelitis #3 metatarsal, open amputation of toe #3 with metatarsal, apply wound vac by Dr. Gomez on 12/24/16. Patient playing games on his phone on arrival, resting comfortably. Patient states he is having some burning to foot. Wound vac intact connected to 125 mmhg continuous suction. No drainage to canister. Dressing dry. Patient states right foot is painful. No c/o fever, chills, cp, sob or flu like symptoms. Denies calf pain. Objective - Exam Exam: Wound vac intact and running without issue to 125mmhg suction No drainage noted to canister No leak noted to vac Cap refill <3 seconds Movement intact Very limited sensation to touch - loss of protective sensation Muscle strength 5/5 and equal bilaterally Remaining toes warm to touch No calf pain with manual compression Patient awake, alert and oriented. - Lab Result Diagrams: 12/31/16 04:58 12/31/16 04:58 Labs: Abnormal lab results RBC 3.17 M/mcL (4.19-5.50) L 12/31/16 04:58 Hgb 9.9 g/dL (12.9-16.9) L 12/31/16 04:58 Hct 30.6 % (37.5-50.1) L 12/31/16 04:58 ESR 115 mm/hr (0-10) H 12/25/16 16:06 APTT 66.5 Seconds (26.0-36.0) H 12/26/16 05:54 Creatinine 0.70 mg/dL (0.72-1.25) L 12/31/16 04:58 Glucose 106 mg/dL (70-99) H 12/31/16 04:58 POC Glucose 155 (58-89) H 12/30/16 20:10 LDL Cholesterol, Calc 101 mg/dL (0-99) H 12/26/16 05:54 HDL Cholesterol 29 mg/dL (40-59) L 12/26/16 05:54 Cholesterol/HDL Ratio 5.1 (0-4.9) H 12/26/16 05:54 - VTE Documentation of Mechanical Device: Intermittent pneumatic compression device Consult Discharge Plan - Plan Referrals: Jose G Leal MD [Primary Care Provider] -
[2016-12-31] MEDS ORDERED: *HR* HYDROmorphone (PF) 1 MG/ML SYRINGE IVP ONE (13:15)
--- NOTE | 2016-12-31 17:00 | Internal Med Progress Note ---
Date of Encounter: 12/31/16 Time of Encounter: 08:55 - Assessment and plan (1) Osteomyelitis of foot, right, acute Current Visit: Yes Status: Suspected Assessment and plan: Continue IV antibiotics. Plan for surgery on 01/02/2017. Wound cultures so far positive for Proteus and Citrobacter. Infectious disease has been consulted and recommend to continue Zosyn. High risk for complications (2) Anemia of chronic disease Current Visit: Yes Status: Acute (3) Atherosclerosis of [place] arteries of right leg with ulceration of other part of foot Current Visit: Yes Status: Chronic Assessment and plan: Patient has been evaluated by vascular surgery. No signs of large vessel disease. Recommended transmetatarsal amputation (4) Diabetes Current Visit: Yes Status: Chronic Assessment and plan: Well controlled at this time. Continue current insulin regimen Qualifiers: Diabetes mellitus type: type 2 Diabetes mellitus complication status: with skin complications Diabetes mellitus complication detail: with foot ulcer Diabetes mellitus intermediate insulin use: with intermission coordinator use Qualified Code(s) : E11.621 - Type 2 diabetes mellitus with foot ulcer; L97.509 - Non-pressure chronic ulcer of other part of unspecified foot with unspecified severity; Z79.4 - detention (current) use of insulin (5) DVT prophylaxis Current Visit: Yes Status: Acute Assessment and plan: With subcutaneous heparin (6) Left knee pain Current Visit: Yes Status: Acute Assessment and plan: Improved today. X-ray does not show any acute fracture. Most likely arthritis related pain Qualifiers: Chronicity: acute Qualified Code(s): M25.562 - Pain in left knee - Subjective Interval history: Patient is lying in bed. Appears comfortable. Denies any new complaints at this time. Does have pain in right foot which is well controlled with current pain medication regimen. - Constitutional Vitals: Temp Pulse Resp BP Pulse Ox 98.2 F 78 16 107/63 91 12/31/16 15:57 12/31/16 15:57 12/31/16 15:57 12/31/16 15:57 12/31/16 15:57 General appearance: Present: cooperative, A&O X 3, pleasant, no acute distress, answers questions appropriately - Respiratory Respiratory exam: Present: CTAB. Absent: accessory muscle use, rales, rhonchi, wheezes - Cardiovascular Cardiovascular exam: Present: RRR, +S1, +S2. Absent: diastolic murmur, gallop, rubs, systolic murmur - GI/Abdominal GI/Abdominal exam: Present: normal bowel sounds, soft, no peritoneal signs. Absent: distended, tenderness - Extremities Exam Extremities exam: Present: tenderness (Right foot. Currently bandaged.), warm, radial pulses palpable and symmetrical. Absent: calf tenderness, cyanotic, pedal edema - Neurological Exam Neurological exam: Present: alert, oriented X3, no focal deficits. Absent: facial droop, speech deficit - Skin Skin exam: Present: dry, intact Internal Medicine: Result - Labs CBC & Chem 7: 12/31/16 04:58 12/31/16 04:58 - ABG Interpretation ABG results: PT/INR, D-dimer PT 11.3 Seconds (9.4-12.1) 12/26/16 05:54 - VTE Documentation of Mechanical Device: Intermittent pneumatic compression device Consult Discharge Plan - Plan Referrals: oJse G Leal MD [Primary Care Provider] -
[2016-12-31] MEDS: Insulin DETEMIR 100 UNIT/ML X5UNITS SQ SCH (20:31)
[2017-01-01] MEDS: Piperacillin/Tazobactam 3.375 GM in D5% in Water (Mini-Bag+) 100 ML IVPB SCH ×3 (00:22→16:08)
[2017-01-01] MEDS: *HR* HYDROcodone/Acet 7.5/325 mg TABLET PO PRN ×2 (00:31→13:37)
[2017-01-01] MEDS: *HR* Morphine 2 MG/ML SYRINGE IVP PRN ×2 (04:52→08:31)
[2017-01-01] MEDS: *HR* Heparin 5,000 UNIT/ML VIAL SQ SCH ×2 (04:55→18:17)
[2017-01-01] MEDS: Nicotine 21 MG PATCH.TD24 TD SCH (08:16)
[2017-01-01] MEDS: Gabapentin 300 MG CAPSULE PO SCH ×3 (08:17→21:35)
[2017-01-01] MEDS: Patient Taking Own Medication 1 EACH PO SCH ×3 (08:35→18:20)
--- NOTE | 2017-01-01 11:42 | Infectious Disease Progress No ---
Date of Encounter: 01/01/17 Time of Encounter: 11:39 - Assessment and Plan (1) Osteomyelitis of foot, right, acute Current Visit: Yes Status: Suspected Location: Left foot, third digit and metatarsal. Causative organism Proteus mirabilis and Citrobacter freundii. Right foot xray negative for OM, but bone changes noted intra-operatively. States post incision of the bone cortex for OM metatarsal #3, open amputation of toe #3 with metarsal, and wound VAC application 12/27/[address] Gomez. Operative note reviewed. Pathology showed acute OM of the third digit. ESR elevated at 115. Blood cultures drawn 12/26/16 are negative 2/2 sets. Podiatry consulted and following. Plan for TMA on . Continue Zosyn 3.375 grams IV Q8H for now. Will likely de-escalate to Levaquin after the next surgical procedure. Continue wound care and activity restrictions as outlined by the podiatry team. Duration of treatment depends on the clinical picture, but likely 6 weeks of IV antibiotics. Monitor renal function and dose-adjust antibiotics. Consult social media editor for discharge planning. (2) Abscess of foot including toes Current Visit: No Status: Acute Status post bedside debridement with formal I & D 12/27/16. Continue wound care as outlined by the podiatry team. Antibiotic recommendations as above. Qualifiers: Laterality: right Qualified Code(s): L02.611 - Cutaneous abscess of right foot (3) Cellulitis of foot, right Current Visit: Yes Status: Acute Location: Right foot. Causative organism likely P. mirabilis and C. freundii. Improved. Continue antibiotics as above. (4) Diabetic foot ulcer Current Visit: Yes Status: Acute Qualifiers: Diabetic foot ulcer location: unspecified part of foot Diabetes mellitus type: type 2 Laterality: right Non-pressure ulcer stage: unspecified non- pressure ulcer stage Qualified Code(s): E11.621 - Type 2 diabetes mellitus with foot ulcer; L97.519 - Non-pressure chronic ulcer of other part of right foot with unspecified severity (5) Diabetes mellitus type 2 with complications Current Visit: Yes Status: Acute Hgb A1C 7.3% in November 2016. Recommend aggressive glucose monitoring and control to promote wound healing and prevent re-infection. ABIs consistent with mild disease. Vascular team consulted --> no surgical indication at this time. 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 No acute events noted overnight. Patient resting quietly in bed. Denies any fevers or chills or rigors. Denies any chest pain, shortness of breath, or cough. Denies any nausea, vomiting, diarrhea, or constipation. Denies any abdominal pain and states his appetite is okay. Complains of pain in the foot, calf, and mi. Denies any oral thrush or skin lesions. Denies any urinary complaints. Infect Dis PN-Objective Data - Labs CBC & Chem 7: 12/31/16 04:58 12/31/16 04:58 Cultures: Cultures 12/26/16 12:29 Blood Culture - Final Peripheral Venipuncture No growth. 12/26/16 12:29 Blood Culture - Final Peripheral Venipuncture No growth. 12/26/16 18:56 Anaerobic Culture - Final Right Foot No anaerobes were recovered. 12/26/16 11:01 Anaerobic Culture - Final Right Foot No anaerobes were recovered. 12/27/16 13:06 Surgical Biopsy Culture - Final Right Foot Proteus mirabilis Citrobacter freundii 12/27/16 13:06 Wound Culture - Final Right Foot Proteus mirabilis Citrobacter freundii 12/27/16 13:06 Anaerobic Culture - Preliminary Right Foot At this time, no anaerobic growth is present. The culture will be finalized after 5 days of incubation. 12/26/16 11:01 Wound Culture - Final Right Foot Proteus mirabilis Citrobacter freundii 12/26/16 18:56 Wound Culture - Final Right Foot Proteus mirabilis Citrobacter freundii 12/27/16 13:06 Gram Stain - Final Right Foot Exam - Constitutional Vitals: Temp Pulse Resp BP Pulse Ox 97.8 F 81 16 109/64 94 01/01/17 10:03 01/01/17 10:03 01/01/17 10:03 01/01/17 10:03 01/01/17 10:03 General appearance: average body habitus, cooperative, no acute distress - Head Head exam: Present: atraumatic, normal inspection, normocephalic - Eye Eye exam: Present: EOMI, normal appearance, PERRL Pupils: Present: normal accommodation - ENT ENT exam: Present: mucous membranes moist - Neck Neck exam: Present: normal inspection - Respiratory Respiratory exam: Present: CTAB. Absent: rales, respiratory distress, rhonchi, wheezes - Cardiovascular Cardiovascular exam: Present: RRR, +S1, +S2 - GI/Abdominal GI/Abdominal exam: Present: normal bowel sounds, soft. Absent: distended, tenderness - Extremities Exam Extremities exam: Present: pedal edema (2+ RLE), tenderness (Right calf/mi). Absent: joint swelling Additional comments: Wound VAC dressing noted to the right foot with sponge well-compressed. Overlying guaze dressing C/D/I. - Neurological Exam Neurological exam: Present: alert, oriented X3, no focal deficits - Psychiatric Psychiatric exam: Present: normal affect, normal mood - Skin Skin exam: Present: dry, intact, normal color, warm - VTE Documentation of Mechanical Device: Intermittent pneumatic compression device Consult Discharge Plan - Plan Referrals: Jose G Leal MD [Primary Care Provider] -
[2017-01-01] MEDS: Insulin LISPRO 300 UNITS/3 ML VIAL SQ SCH ×4 (12:33→21:39)
--- NOTE | 2017-01-01 15:53 | Internal Med Progress Note ---
Date of Encounter: 01/01/17 Time of Encounter: 08:25 - Assessment and plan (1) Osteomyelitis of foot, right, acute Current Visit: Yes Status: Suspected Assessment and plan: Continue IV antibiotics. Plan for right-sided transmetatarsal amputation tomorrow. Infectious disease and podiatry following. High risk for complications. (2) Anemia of chronic disease Current Visit: Yes Status: Acute Assessment and plan: Hemoglobin levels are stable now. Will monitor post surgery. (3) Atherosclerosis of [place] arteries of right leg with ulceration of other part of foot Current Visit: Yes Status: Chronic Assessment and plan: No acute surgical intervention indicated for this at this time. (4) Diabetes Current Visit: Yes Status: Chronic Assessment and plan: Blood sugars are fairly controlled. Continue current insulin regimen for now. Qualifiers: Diabetes mellitus type: type 2 Diabetes mellitus complication status: with skin complications Diabetes mellitus complication detail: with foot ulcer Diabetes mellitus [facility] insulin use: with emt intermediate use Qualified Code(s) : E11.621 - Type 2 diabetes mellitus with foot ulcer; L97.509 - Non-pressure chronic ulcer of other part of unspecified foot with unspecified severity; Z79.4 - intermediate (current) use of insulin (5) DVT prophylaxis Current Visit: Yes Status: Acute Assessment and plan: Subcutaneous heparin (6) Left knee pain Current Visit: Yes Status: Acute Assessment and plan: Improving. No acute fracture per x-ray. Qualifiers: Chronicity: acute Qualified Code(s): M25.562 - Pain in left knee - Subjective Interval history: Complains of pain in right foot. Controlled with pain medications that he is currently receiving. Pain in left knee is Much improved. He is able to bend the knee without much pain. Denies any other new complaints at this time. - Constitutional Vitals: Temp Pulse Resp BP Pulse Ox 97.8 F 81 16 109/64 94 01/01/17 10:03 01/01/17 10:03 01/01/17 10:03 01/01/17 10:03 01/01/17 10:03 General appearance: Present: cooperative, A&O X 3, pleasant, no acute distress, answers questions appropriately - Eye Eye exam: Present: EOMI, PERRL, conjuntiva pink, sclera anicteric - Respiratory Respiratory exam: Present: CTAB. Absent: accessory muscle use, rales, rhonchi, wheezes - Cardiovascular Cardiovascular exam: Present: RRR, +S1, +S2. Absent: diastolic murmur, gallop, rubs, systolic murmur - GI/Abdominal GI/Abdominal exam: Present: normal bowel sounds, soft, no peritoneal signs. Absent: distended, tenderness - Extremities Exam Extremities exam: Present: pedal edema, tenderness (Right foot), warm, radial pulses palpable and symmetrical. Absent: calf tenderness, cyanotic Additional comments: Right foot bandaged with wound VAC dressing. - Neurological Exam Neurological exam: Present: alert, oriented X3, no focal deficits. Absent: facial droop, speech deficit - Skin Skin exam: Present: dry, intact Internal Medicine: Result - Labs CBC & Chem 7: 12/31/16 04:58 12/31/16 04:58 - ABG Interpretation ABG results: PT/INR, D-dimer PT 11.3 Seconds (9.4-12.1) 12/26/16 05:54 - VTE Documentation of Mechanical Device: Intermittent pneumatic compression device Consult Discharge Plan - Plan Referrals: Jose G Leal MD [Primary Care Provider] -
--- NOTE | 2017-01-01 17:27 | Podiatry Progress Note ---
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 Gomez on 12/24/16. WBC 8.0 afebrile Plan: Continue wound vac therapy Plan is right TMA on 01/02/17 per Blood Cultures: NGTD, Wound cultures isolated Proteus mirabilis and citrobacter freundii. Infectious Disease discontinued vancomycin. Currently on Zosyn. Vascular note appreciated. Infectious disease noted appreciated.. Due to patients complaints of pain, will write for 1x dose of dilaudid 0.5mg IVP - Patient has had occasional low BP- please monitor BP Prior to administration- do not administer for SBP <95 Qualifiers: Diabetic foot ulcer location: unspecified part of foot Diabetes mellitus type: type 2 Laterality: right Non-pressure ulcer stage: unspecified non- pressure ulcer stage Qualified Code(s): E11.621 - Type 2 diabetes mellitus with foot ulcer; L97.519 - Non-pressure chronic ulcer of other part of right foot with unspecified severity Subjective Interval history: Patient is s/p incision bone cortex for osteomyelitis #3 metatarsal, open amputation of toe #3 with metatarsal, apply wound vac by Dr. Gomez on 12/24/16. Patient resting comfortably on arrival today, states he has some pain today. Wound vac intact connected to 125 mmhg continuous suction. No drainage to canister. Dressing dry. Patient states right foot is painful. No c/o fever, chills, cp, sob or flu like symptoms. Denies calf pain. Patient aware he is awaiting surgery tomorrow for TMA and is agreeable to plan Objective - Vital Signs Vital Signs: Vital Signs Temp Pulse Resp BP Pulse Ox 01/01/17 15:51 98.1 F 74 16 113/63 96 01/01/17 10:03 97.8 F 81 16 109/64 94 01/01/17 07:11 97.6 F 78 18 107/68 95 01/01/17 04:37 98.0 F 72 20 113/67 93 01/01/17 00:42 98.3 F 75 19 110/64 94 12/31/16 20:19 98.5 F 83 16 103/81 92 Intake and Output 01/01/17 01/01/17 01/01/17 07:59 15:59 23:59 Intake Total 100 / 100 450 / 450 Output Total 900 / 900 600 / 600 Balance -800 / -800 -150 / -150 Intake: IV Fluids 100 / 100 100 / 100 Zosyn 3.375 GM In 100 / 100 100 / 100 Dextrose 5% (Minibag+) 100 ML 100 ML @ 25 mls/hr IVPB Q8HR [facility] Rx#: [id number] Oral 350 / 350 Output: Urine 900 / 900 600 / 600 Other: Meal Lunch Percent of Meal Consumed 90% Weight 86.1 kg Blood Glucose* 82 206 Patient Weight 01/01/17 23:59 Weight 86.1 kg - Exam Exam: Awake, alert and oriented Wound vac intact and running without issue. 125mmhg suction Will not change today, due for TMA tomorrow with VAC removal. Remaining toes warm Cap refill <3 seconds Pulses faint- DP/PT No calf pain with manual compression Edema 0/4 Neuropathic- loss of protective sensation - Lab Result Diagrams: 12/31/16 04:58 12/31/16 04:58 Labs: Abnormal lab results RBC 3.17 M/mcL (4.19-5.50) L 12/31/16 04:58 Hgb 9.9 g/dL (12.9-16.9) L 12/31/16 04:58 Hct 30.6 % (37.5-50.1) L 12/31/16 04:58 ESR 115 mm/hr (0-10) H 12/25/16 16:06 APTT 66.5 Seconds (26.0-36.0) H 12/26/16 05:54 Creatinine 0.70 mg/dL (0.72-1.25) L 12/31/16 04:58 Glucose 106 mg/dL (70-99) H 12/31/16 04:58 POC Glucose 151 (58-89) H 12/31/16 20:28 LDL Cholesterol, Calc 101 mg/dL (0-99) H 12/26/16 05:54 HDL Cholesterol 29 mg/dL (40-59) L 12/26/16 05:54 Cholesterol/HDL Ratio 5.1 (0-4.9) H 12/26/16 05:54 - VTE Documentation of Mechanical Device: Intermittent pneumatic compression device Consult Discharge Plan - Plan Referrals: Jose G Leal MD [Primary Care Provider] -
[2017-01-01] MEDS ORDERED: *HR* HYDROmorphone (PF) 1 MG/ML SYRINGE IVP ONE (17:30)
[2017-01-01] MEDS: Insulin DETEMIR 100 UNIT/ML X5UNITS SQ SCH (21:35)
[2017-01-02] MEDS: Piperacillin/Tazobactam 3.375 GM in D5% in Water (Mini-Bag+) 100 ML IVPB SCH ×3 (00:11→14:54)
[2017-01-02] MEDS: *HR* Morphine 2 MG/ML SYRINGE IVP PRN ×2 (00:11→22:07)
[2017-01-02] MEDS: *HR* Heparin 5,000 UNIT/ML VIAL SQ SCH ×2 (06:31→17:34)
--- NOTE | 2017-01-02 07:24 | Anesthesia Evaluation PreOp ---
Date of Encounter: 01/02/17 Time of Encounter: 07:22 - Past History Planned Operation: Right Transmetatarsal Amputation Cardiac History: Denies any Significant Hx Pulmonary History: Smoker (40 years) ACADEMIC SERVICES COORDINATOR History: Other (chronic pain) Other Medical History: Diabetes Type II, Other (H/O DVT) Anesthesia History: No Prior Anesthetic Complications, Past Anesthesia Alcohol Use: occasionally Drug use: none Medications and Allergies Ibuprofen/Pseudoephedrine HCl [Advil Cold & Sinus Caplet] 1 tab PO TID PRN 12/26 [History] Multivitamin [Multi-Day Vitamins] 1 each PO DAILY 01/10/16 [History] Linagliptin [Tradjenta] 5 mg PO DAILY 02/01/16 [History] metFORMIN [Glucophage] 500 mg PO BIDWM 02/01/16 [History] Gabapentin [Neurontin] 300 mg PO TID 05/15/16 [History] Insulin Glargine [Lantus] 20 unit SQ HS 05/15/16 [History] Insulin ASPART [NovoLOG] 0 unit SQ TIDWM 11/20/16 [History] Lactose-Reduced Food [Ensure High Protein] 1 bottle PO TIDWM 11/20/16 [History] 3 Allergy/AdvReac Type Severity Reaction Status Date / Time No Known Allergies Allergy Verified 02/01/16 10:56 - Meds/Allergy Pre-op Review Medications Reviewed: Yes Allergies Reviewed: Yes Beta Blockers on Current Med List: No Anesthesia Results - Labs 12/31/16 04:58 12/31/16 04:58 - Imaging EKG: report reviewed (05/22/2016 SINUS RHYTHM NONSPECIFIC T-WAVE ABNORMALITY) Anesthesia Exam Vital Signs/O2 Sat/Glucose, Most Recent Temp Pulse Resp BP Pulse Ox 98.3 F 73 16 105/64 94 01/02/17 05:19 01/02/17 05:19 01/02/17 05:19 01/02/17 05:19 01/02/17 05:19 Blood Glucose* 230 Height: 6'/1.83 m Weight: 189 lbs/86.1 kg NPO (# of Hours): 8 Pain Scale: 0 Pain Scale Used: Numeric (1 - 10) - HEENT Pupil (Motor): EOMI Mallampati: II Teeth: Edentulous Oral Opening: Greater than 3 - ACADEMIC SERVICES COORDINATOR LOC: Oriented ACADEMIC SERVICES COORDINATOR Motor: Normal RUE, Normal LUE, Normal RLE, Normal LLE, Normal Face ACADEMIC SERVICES COORDINATOR Sensory: Normal: Face, Deficit: RUE, LUE, RLE, LLE - Cardiac Rhythm: Regular Murmur: None - Pulmonary Breath Sounds: bilateral Clear Respiratory Effort: Symmetrical Anesthesia Assess/Plan ASA Score: 3 Modified Jimbo Scale for Level of Consciousness: Cooperative, oriented, and tranquil Anesthetic Plan: General Monitoring Plan: Standard Monitors Recovery Plan: PACU
[2017-01-02] MEDS ORDERED: Bupivacaine/Clonidine Syringe 1 EACH SYRINGE ONE (07:33)
[2017-01-02] MEDS ORDERED: Propofol 500 MG/50 ML INFUS..BTL ONE (07:48)
[2017-01-02] MEDS ORDERED: Lidocaine -MPF 2% 2 ML VIAL ONE ×2 (07:48→08:51)
[2017-01-02] MEDS ORDERED: EPHEDrine 50 MG/ML VIAL ONE (08:07)
[2017-01-02] MEDS ORDERED: *HR* FentaNYL (PF) 100 MCG/2 ML VIAL ONE (08:11)
[2017-01-02] MEDS: Insulin LISPRO 300 UNITS/3 ML VIAL SQ SCH ×4 (08:37→22:01)
[2017-01-02] MEDS: Patient Taking Own Medication 1 EACH PO SCH (08:37)
--- NOTE | 2017-01-02 09:58 | Anesthesia Evaluation Post Op ---
Date of Encounter: 01/02/17 Time of Encounter: 09:57 - Vital Signs Vital Signs: Vital Signs/O2 Sat, Most Current Temp Pulse Resp BP Pulse Ox 97.0 F L 65 17 111/54 92 01/02/17 09:30 01/02/17 09:50 01/02/17 09:50 01/02/17 09:50 01/02/17 09:50 - Lungs Lungs: Clear Ascult./Percussion - Airway Airway: Non-obstructed - Cardiovascular Regular Rate - Mental Status Mental Status: Alert & Oriented, Answers Appropriately - Pain Pain Scale: 3 Pain Scale used: Numeric (1 - 10) - Nausea Vomiting Nausea Vomiting: Not Present - Hydration Hydration: Ice chips, Has not voided - Discharge PostOp Status: Transfer Patient to floor
[2017-01-02] MEDS: Nicotine 21 MG PATCH.TD24 TD SCH (10:11)
[2017-01-02] MEDS: Gabapentin 300 MG CAPSULE PO SCH ×3 (10:11→22:03)
[2017-01-02] MEDS ORDERED: Ondansetron 4 MG/2 ML VIAL IVP PRN (10:41)
[2017-01-02] MEDS ORDERED: D5% in Water 1,000 ML IVC PRN (10:41)
[2017-01-02] MEDS ORDERED: Naloxone 0.4 MG/ML INJ IVP PRN (10:41)
[2017-01-02] MEDS ORDERED: 0.9 % Sodium Chloride 250 ML IVC PRN (10:41)
[2017-01-02] MEDS ORDERED: *HR* Dextrose 50 % in Water (Syg) 50 ML SYRINGE IVP PRN (10:41)
[2017-01-02] MEDS ORDERED: Dextrose Gel 15 GM PO PRN ×2 (10:41)
[2017-01-02] MEDS ORDERED: Acetaminophen 325 MG TABLET PO PRN (10:41)
[2017-01-02] MEDS ORDERED: *HR* Morphine 2 MG/ML SYRINGE IVP PRN (10:41)
[2017-01-02] MEDS: *HR* HYDROcodone/Acet 7.5/325 mg TABLET PO PRN ×2 (11:35→17:43)
--- NOTE | 2017-01-02 11:44 | Orthopedic Operative Note ---
Date of procedure: 01/02/17 Pre-op diagnosis: #1 status post I&D debridement right foot/diabetic foot infection ulcer Post-op diagnosis: same Procedure: 01/02/17 11:42 #1 complete TMA right foot #2 adjacent tissue transfer with excision of ulceration primary closure and placement TLS drain Implants: #1: TLS drain Complications: None Anesthesia: local, other (LMA) Local Anesthetics: 0.25% Sensorcaine HCL SubQ (cc) Surgeon: Dylon Gomez Estimated blood loss (cc): 10 Tourniquet Time (Minutes): 0 Specimen: Toes #4 and 5 with respective metatarsals [id number] Condition: stable Disposition: PACU Procedure in Detail: 01/02/17 11:44 Details in summary of procedure: Patient was brought to the surgical suite. A sign in procedure was performed. Patient was then transferred to the surgical table and positioned properly safely securely. The right foot was elevated on a foam block. Patient underwent smooth induction of general anesthesia was achieved by means of an LMA the right ankle was then prepped with alcohol 3 times and anesthetic was delivered per ankle block without difficulty or complication. The right foot was then prepped and draped in usual sterile manner. Surgical timeout was taken. The right foot was inspected previous incisional dorsal aspect overlying the third metatarsal suture line was then found to be intact the sutures were then removed. Large defect or ulceration of the plantar aspect of third MTPJ was still present although clean. No evidence of cellulitis of right foot whatsoever. Drainage no odor no necrosis of the wound on the plantar aspect of the third MT. The wound was then flushed as well as the remainder of all Betadine was removed by irrigation. The foot was gently dried with a sterile towel. Using a skin scribe a standard incision was begun beginning at the junction of the dorsal plantar skin overlying the previous amputation site of the third toe and brought laterally just proximal toes #4 and 5 the lateral aspect of the fifth MTPJ. The plantar incision was begun sulcus of the previous third toe and brought laterally at the level of the base of the toes 4 and 5 and then meeting the dorsal incision was drawn on the lateral aspect of the fifth MTPJ and then brought proximally along the shaft of the fifth metatarsal for 4 cm.. Using a #15 scalpel blade incisions were then placed currently down to bone beginning of dorsal aspect of the previous amputation site of the third toe and brought laterally to the level of the MTPJ #5. Plantar incision was then placed again directly down to bone perpendicular to the skin and brought laterally eating at the lateral aspect of his MTPJ and then proximally 4 cm along the shaft of fifth metatarsal. Toes numbers 4 and 5 are then disarticulated by dividing the capsular structures cleanly to the #15 scalpel blade. It was sent to pathology. At that juncture using a #15 scalpel blade and fresh 2 elliptical incisions were then made excising the ulceration plantarly to create a fresh skin edge. Incision along the junction of the dorsal plantar skin was lengthened medially overlying the second metatarsal. Soft tissue was then reflected off metatarsals #2 #3 #4 #5. With gentle retraction osteotomies were then performed with a TPS power saw of the second third fourth and fifth metatarsals respectively and in sequence. Metatarsals were then removed there were divided and a respective parabola as to avoid any postoperative pressure many one of these particular metatarsals. The wound was then flushed with copious amounts sterile saline appropriate debridement of all nonviable tissue was undertaken with a pickup and scissor down to the level of the periosteum. Remainder the wound was debrided down to the periosteum using an ultrasonic Misonix debrider. Edges of the tissue flap on the dorsal and the plantar aspect of the original ulceration, were excised creating tissue transfer flap from medial to lateral lateral to medial and the plantar flap as well as a dorsal flap to to the medial aspect of the foot. Satisfied we have fresh skin edge the original incision from the I&D overlying the third metatarsal and a vertical fashion. This was addressed and fresh skin edge was obtained using a #15 scalpel blade. The wound was noted to bleed freely without sustaining use of a ligature. Judicious use of Bovie was accomplished to maintain hemostasis. After thorough irrigation the wound was sprayed with PRP. Deep sutures were then placed using 3-0 Vicryl. Dorsal and plantar flaps were then transferred. Dorsal and plantar flaps were then transferred medially. Incision was then closed from lateral to medial beginning over the fifth metatarsal and moving medially to the center of the foot at which time medial and lateral aspects of the plantar flap were then reanastomosed using 3- o and 2-0 Prolene creating an adjacent tissue transfer to allow closure for the wound without tension. The dorsal flap vertical flap was then addressed using 3 -0 Prolene as well. Care was taken to avoid any excessive placement of sutures , to avoid skin necrosis of the adjacent tissue transfer flaps. Prior to closure talus drain was placed and anchored using Steri-Strips. The wound was then dressed with remaining Steri-Strips sterile Adaptic 4 x 4 fluff and Kerlix dressings. Estimated blood loss less than 10 mL complications encountered none patient sent to PACU in good condition with vital signs stable.
--- NOTE | 2017-01-02 11:53 | Infectious Disease Progress No ---
Date of Encounter: 01/02/17 Time of Encounter: 11:51 - Assessment and Plan (1) Osteomyelitis of foot, right, acute Current Visit: Yes Status: Suspected Location: Right foot, third digit and metatarsal. Causative organism Proteus mirabilis and Citrobacter freundii. Right foot xray negative for OM, but bone changes noted intra-operatively. States post incision of the bone cortex for OM metatarsal #3, open amputation of toe #3 with metarsal, and wound VAC application 12/27/[address] Gomez. Operative note reviewed. Pathology showed acute OM of the third digit. Status post right TMA 01/02/[address] Gomez. ESR elevated at 115. Blood cultures drawn 12/26/16 are negative 2/2 sets. Podiatry consulted and following. Continue Zosyn 3.375 grams IV Q8H for now. Will likely de-escalate to Levaquin once I am able to review the most recent operative report. Continue wound care and activity restrictions as outlined by the podiatry team. Duration of treatment depends on the clinical picture, but likely 6 weeks of IV antibiotics. Monitor renal function and dose-adjust antibiotics. Consult director of social media marketing for discharge planning. Consult VAT for EPIV placement. (2) Abscess of foot including toes Current Visit: No Status: Acute Status post bedside debridement with formal I & D 12/27/16. Continue wound care as outlined by the podiatry team. Antibiotic recommendations as above. Qualifiers: Qualified Code(s): L02.611 - Cutaneous abscess of right foot (3) Cellulitis of foot, right Current Visit: Yes Status: Acute Location: Right foot. Causative organism likely P. mirabilis and C. freundii. Improved. Continue antibiotics as above. (4) Diabetic foot ulcer Current Visit: Yes Status: Acute Qualifiers: Qualified Code(s): E11.621 - Type 2 diabetes mellitus with foot ulcer; L97.519 - Non-pressure chronic ulcer of other part of right foot with unspecified severity (5) Diabetes mellitus type 2 with complications Current Visit: Yes Status: Acute Hgb A1C 7.3% in November 2016. Recommend aggressive glucose monitoring and control to promote wound healing and prevent re-infection. ABIs consistent with mild disease. Vascular team consulted --> no surgical indication at this time. Qualifiers: Qualified Code(s): E11.8 - Type 2 diabetes mellitus with unspecified complications; Z79.4 - longterm (current) use of insulin (6) Peripheral neuropathy Current Visit: No Status: Chronic Qualifiers: Qualified Code(s): G63 - Polyneuropathy in diseases classified elsewhere - Subjective Interval history: Patient seen and examined. Status post right foot TMA this morning with TLS drain placement by Dr. Gomez. Patient resting quietly in bed. Denies any fevers or chills or rigors. Denies any chest pain, shortness of breath, or cough. Denies any nausea, vomiting, diarrhea, or constipation. Denies any abdominal pain and states his appetite is okay. Reports minimal pain in the right foot. Denies any oral thrush or skin lesions. Denies any urinary complaints. Infect Dis PN-Objective Data - Labs CBC & Chem 7: 12/31/16 04:58 12/31/16 04:58 Labs: Laboratory Results - last 24 hr 12/31/16 12/31/16 01/01/17 16:03 20:28 21:23 POC Glucose 172 H 151 H 230 H - Impressions Impressions Foot X-Ray 01/02/17 09:30 IMPRESSION: 1. Status post forefoot amputation at the level of the proximal to mid metatarsals. No focal soft tissue abnormality. 2. There is a linear lucency overlying the proximal fifth metatarsal remnant which may represent a nondisplaced fracture versus overlapping bandages. This is only identified on the AP view as on the oblique view drain tube overlaps this region. Repeat radiographs could be obtained with the tube displaced from the foot and ankle to allow multiview evaluation. D/ / 01/02/2017 10:52:07 Yousuf Wynn MD / jayshree Interpreting Provider: Yousuf Wynn MD Exam - Constitutional Vitals: Temp Pulse Resp BP Pulse Ox 97.6 F 69 18 125/56 93 01/02/17 10:39 01/02/17 10:39 01/02/17 10:39 01/02/17 10:39 01/02/17 10:39 General appearance: average body habitus, cooperative, no acute distress - Head Head exam: Present: atraumatic, normal inspection, normocephalic - Eye Eye exam: Present: EOMI, normal appearance, PERRL Pupils: Present: normal accommodation - ENT ENT exam: Present: mucous membranes moist - Neck Neck exam: Present: normal inspection - Respiratory Respiratory exam: Present: CTAB. Absent: rales, respiratory distress, rhonchi, wheezes - Cardiovascular Cardiovascular exam: Present: RRR, +S1, +S2 - GI/Abdominal GI/Abdominal exam: Present: normal bowel sounds, soft. Absent: distended, tenderness - Extremities Exam Extremities exam: Present: pedal edema (1+ RLE). Absent: joint swelling, tenderness Additional comments: Right foot post-op dressing C/D/I with TLS drain with scant amount of sanguinous drainage noted. - Neurological Exam Neurological exam: Present: alert, oriented X3, no focal deficits - Psychiatric Psychiatric exam: Present: normal affect, normal mood - Skin Skin exam: Present: dry, intact, normal color, warm - VTE Documentation of Mechanical Device: Intermittent pneumatic compression device Consult Discharge Plan - Plan Referrals: Jose G Leal MD [Primary Care Provider] -
[2017-01-02] MEDS ORDERED: (Ensure High Protein] 1 BOTTLE) PO SCH (12:00)
--- NOTE | 2017-01-02 12:06 | Internal Med Progress Note ---
Date of Encounter: 01/02/17 Time of Encounter: 11:30 - Assessment and plan (1) Osteomyelitis of foot, right, acute Current Visit: Yes Status: Suspected Assessment and plan: Status post complete right-sided transmetatarsal amputation postop day 0. Continue local wound care. IV antibiotics. Monitor vital signs closely. We will also monitor blood counts. Pain control with intravenous narcotic medications as needed. High-risk for complications. (2) Anemia of chronic disease Current Visit: Yes Status: Acute Assessment and plan: Will monitor blood counts and treat any postoperative anemia with blood transfusion as needed. (3) Diabetes Current Visit: Yes Status: Chronic Assessment and plan: Blood sugars were elevated last evening. Improved this morning. We will monitor for now and adjust insulin regimen accordingly. 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 From arthritis Qualifiers: Chronicity: acute Qualified Code(s): M25.562 - Pain in left knee - Subjective Interval history: Underwent surgery this morning. Complains of pain in right foot surgical site. Denies any chest pain or shortness of breath. No other complaints at this time. - Constitutional Vitals: Temp Pulse Resp BP Pulse Ox 97.6 F 69 18 125/56 93 01/02/17 10:39 01/02/17 10:39 01/02/17 10:39 01/02/17 10:39 01/02/17 10:39 General appearance: Present: cooperative, mild distress, A&O X 3, pleasant, answers questions appropriately - Respiratory Respiratory exam: Present: CTAB. Absent: accessory muscle use, rales, rhonchi, wheezes - Cardiovascular Cardiovascular exam: Present: RRR, +S1, +S2. Absent: diastolic murmur, gallop, rubs, systolic murmur - Extremities Exam Extremities exam: Present: tenderness (Right foot currently bandaged with wound vac drain in place), warm, radial pulses palpable and symmetrical. Absent: calf tenderness, cyanotic, pedal edema - Neurological Exam Neurological exam: Present: oriented X3, no focal deficits. Absent: facial droop, speech deficit Internal Medicine: Result - Labs CBC & Chem 7: 12/31/16 04:58 12/31/16 04:58 - ABG Interpretation ABG results: PT/INR, D-dimer PT 11.3 Seconds (9.4-12.1) 12/26/16 05:54 - Impressions Impressions Foot X-Ray 01/02/17 09:30 IMPRESSION: 1. Status post forefoot amputation at the level of the proximal to mid metatarsals. No focal soft tissue abnormality. 2. There is a linear lucency overlying the proximal fifth metatarsal remnant which may represent a nondisplaced fracture versus overlapping bandages. This is only identified on the AP view as on the oblique view drain tube overlaps this region. Repeat radiographs could be obtained with the tube displaced from the foot and ankle to allow multiview evaluation. D/ / 01/02/2017 10:52:07 Yousuf Wynn MD / jayshree Interpreting Provider: Yousuf Wynn MD - VTE Documentation of Mechanical Device: Intermittent pneumatic compression device Consult Discharge Plan - Plan Referrals: Jose G Leal MD [Primary Care Provider] -
[2017-01-02] MEDS ORDERED: Insulin DETEMIR 100 UNIT/ML X5UNITS SQ SCH (21:00)
[2017-01-03] MEDS: Piperacillin/Tazobactam 3.375 GM in D5% in Water (Mini-Bag+) 100 ML IVPB SCH ×2 (00:35→08:40)
[2017-01-03] MEDS: *HR* HYDROcodone/Acet 7.5/325 mg TABLET PO PRN ×2 (02:19→10:00)
[2017-01-03] MEDS: *HR* Morphine 2 MG/ML SYRINGE IVP PRN (04:48)
[2017-01-03 05:44] LABS: Basophils % 0.4 %; Eosinophils # 0.3 K/mcL (0.0-0.6); Eosinophils % 2.4 %; Hematocrit 29.6 % (37.5-50.1); Hemoglobin 9.3 g/dL (12.9-16.9); Immature Granulocytes % 0.6 % (0-4); Lymphocytes # 1.6 K/mcL (0.6-4.6); Lymphocytes % 14.9 %; Mean Corpuscular HGB Conc 31.4 g/dL (31.6-35.5); Mean Corpuscular Hemoglobin 30.4 pg (28.0-33.3); Mean Corpuscular Volume 96.7 fL (83.0-100.0); Mean Platelet Volume 10.7 fL (9.4-12.4); Monocytes # 1.5 K/mcL (0.0-1.3); Monocytes % 14.4 %; Neutrophils # 7.1 K/mcL (1.6-8.9); Platelet Count 333 K/mcL (140-400); Red Blood Count 3.06 M/mcL (4.19-5.50); Red Cell Distribution Width 13.9 % (11.5-14.5); Segmented Neutrophils % 67.3 %
[2017-01-03 05:55] LABS: BUN/Creatinine Ratio 18 (6-26); Blood Urea Nitrogen 13 mg/dL (8-26); Carbon Dioxide 25 mEq/L (19-29); Chloride 106 mEq/L (98-109); Sodium 139 mEq/L (136-145)
[2017-01-03 05:56] LABS: Calcium 9.1 mg/dL (8.6-10.8); Glucose 102 mg/dL (70-99); Osmolality,Calculated 288 (280-300); eGFR For African Americans > 60 (> 60); eGFR For Non-African Americans > 60 (> 60)
[2017-01-03] MEDS: *HR* Heparin 5,000 UNIT/ML VIAL SQ SCH (06:16)
[2017-01-03] MEDS: Gabapentin 300 MG CAPSULE PO SCH ×2 (08:41→14:35)
[2017-01-03] MEDS: Insulin LISPRO 300 UNITS/3 ML VIAL SQ SCH ×2 (08:42→12:31)
[2017-01-03] MEDS ORDERED: Nicotine 21 MG PATCH.TD24 TD SCH (09:00)
--- NOTE | 2017-01-03 10:33 | Infectious Disease Progress No ---
Date of Encounter: 01/03/17 Time of Encounter: 10:31 - Assessment and Plan (1) Osteomyelitis of foot, right, acute Status: Suspected Location: Right foot, third digit and metatarsal. Causative organism Proteus mirabilis and Citrobacter freundii. Right foot xray negative for OM, but bone changes noted intra-operatively. States post incision of the bone cortex for OM metatarsal #3, open amputation of toe #3 with metarsal, and wound VAC application 12/27/[address] Gomez. Operative note reviewed. Pathology showed acute OM of the third digit. Status post right TMA 01/02/[address] Gomez. Operative note reviewed. No additional purulence or bone abnormalities noted. ESR elevated at 115. Blood cultures drawn 12/26/16 are negative 2/2 sets. Podiatry consulted and following. Discontinue Zosyn. Start Levaquin 750mg IV daily. Continue wound care and activity restrictions as outlined by the podiatry team. Duration of treatment depends on the clinical picture, but likely 6 weeks of IV antibiotics. Monitor renal function and dose-adjust antibiotics. field services manager consulted for discharge planning. Consult VAT for EPIV placement. Get weekly CBC, BUN/Cr, ESR, and CRP every Friday for the duration of treatment. Weekly EPIV care. Follow up with ID 01/21/17 at 0900. (2) Abscess of foot including toes Status: Acute Status post bedside debridement with formal I & D 12/27/16. Continue wound care as outlined by the podiatry team. Antibiotic recommendations as above. Qualifiers: Laterality: right Qualified Code(s): L02.611 - Cutaneous abscess of right foot (3) Cellulitis of foot, right Status: Acute Location: Right foot. Causative organism likely P. mirabilis and C. freundii. Improved. Continue antibiotics as above. (4) Diabetic foot ulcer Status: Acute Qualifiers: Diabetic foot ulcer location: unspecified part of foot Diabetes mellitus type: type 2 Laterality: right Non-pressure ulcer stage: unspecified non- pressure ulcer stage Qualified Code(s): E11.621 - Type 2 diabetes mellitus with foot ulcer; L97.519 - Non-pressure chronic ulcer of other part of right foot with unspecified severity (5) Diabetes mellitus type 2 with complications Status: Chronic Hgb A1C 7.3% in November 2016. Recommend aggressive glucose monitoring and control to promote wound healing and prevent re-infection. ABIs consistent with mild disease. Vascular team consulted --> no surgical indication at this time. 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 Status post right foot TMA with TLS drain placement by Dr. Gomez 01/02/17. Patient resting quietly in bed. Denies any fevers or chills or rigors. Denies any chest pain, shortness of breath, or cough. Denies any nausea, vomiting, diarrhea, or constipation. Denies any abdominal pain and states his appetite is okay. Reports minimal pain in the right foot. Denies any oral thrush or skin lesions. Denies any urinary complaints. Infect Dis PN-Objective Data - Labs CBC & Chem 7: 01/03/17 05:14 01/03/17 05:14 Labs: Laboratory Results - last 24 hr 01/01/17 01/01/17 01/01/17 07:35 11:00 15:46 WBC RBC Hgb Hct MCV MCH MCHC RDW Plt Count MPV Immature Gran % Seg Neutrophils % Lymphocytes % Monocytes % Eosinophils % Basophils % Neutrophils # Lymphocytes # Monocytes # Eosinophils # Basophils # Sodium Potassium Chloride Carbon Dioxide BUN Creatinine Est GFR ( Amer) Est GFR (Non-Af Amer) BUN/Creatinine Ratio Glucose POC Glucose 82 148 H 206 H Calculated Osmolality Calcium 01/02/17 01/02/17 01/02/17 11:54 15:57 20:08 WBC RBC Hgb Hct MCV MCH MCHC RDW Plt Count MPV Immature Gran % Seg Neutrophils % Lymphocytes % Monocytes % Eosinophils % Basophils % Neutrophils # Lymphocytes # Monocytes # Eosinophils # Basophils # Sodium Potassium Chloride Carbon Dioxide BUN Creatinine Est GFR ( Amer) Est GFR (Non-Af Amer) BUN/Creatinine Ratio Glucose POC Glucose 149 H 217 H 276 H Calculated Osmolality Calcium 01/03/17 01/03/17 01/03/17 05:14 05:14 07:24 WBC 10.5 RBC 3.06 L Hgb 9.3 L Hct 29.6 L MCV 96.7 MCH 30.4 MCHC 31.4 L RDW 13.9 Plt Count 333 MPV 10.7 Immature Gran % 0.6 Seg Neutrophils % 67.3 Lymphocytes % 14.9 Monocytes % 14.4 Eosinophils % 2.4 Basophils % 0.4 Neutrophils # 7.1 Lymphocytes # 1.6 Monocytes # 1.5 H Eosinophils # 0.3 Basophils # 0.0 Sodium 139 Potassium 4.0 Chloride 106 Carbon Dioxide 25 BUN 13 Creatinine 0.72 Est GFR ( Amer) > 60 Est GFR (Non-Af Amer) > 60 BUN/Creatinine Ratio 18 Glucose 102 H POC Glucose 138 H Calculated Osmolality 288 Calcium 9.1 - Impressions Impressions Foot X-Ray 01/02/17 09:30 IMPRESSION: 1. Status post forefoot amputation at the level of the proximal to mid metatarsals. No focal soft tissue abnormality. 2. There is a linear lucency overlying the proximal fifth metatarsal remnant which may represent a nondisplaced fracture versus overlapping bandages. This is only identified on the AP view as on the oblique view drain tube overlaps this region. Repeat radiographs could be obtained with the tube displaced from the foot and ankle to allow multiview evaluation. D/ / 01/02/2017 10:52:07 Yousuf Wynn MD / jayshree Interpreting Provider: Yousuf Wynn MD Exam - Constitutional Vitals: Temp Pulse Resp BP Pulse Ox 98.1 F 86 18 104/63 96 01/03/17 06:34 01/03/17 06:34 01/03/17 06:34 01/03/17 06:34 01/03/17 06:34 General appearance: average body habitus, cooperative, no acute distress - Head Head exam: Present: atraumatic, normal inspection, normocephalic - Eye Eye exam: Present: EOMI, normal appearance, PERRL Pupils: Present: normal accommodation - ENT ENT exam: Present: mucous membranes moist - Neck Neck exam: Present: normal inspection - Respiratory Respiratory exam: Present: CTAB. Absent: rales, respiratory distress, rhonchi, wheezes - Cardiovascular Cardiovascular exam: Present: RRR, +S1, +S2 - GI/Abdominal GI/Abdominal exam: Present: normal bowel sounds, soft. Absent: distended, tenderness - Extremities Exam Extremities exam: Present: pedal edema (1+ RLE). Absent: joint swelling, tenderness Additional comments: Right foot dressing c/D/I with TLS drain with small amount of sanguinous drainage noted. - Neurological Exam Neurological exam: Present: alert, oriented X3, no focal deficits - Psychiatric Psychiatric exam: Present: normal affect, normal mood - Skin Skin exam: Present: dry, intact, normal color, warm - VTE Documentation of Mechanical Device: Intermittent pneumatic compression device Consult Discharge Plan - Plan Additional Instructions: Cleanse with saline, apply adaptic, 4x4 and kerlex- monitor for signs of dehiscence, monitor for signs of ischemia or infection. Call with any issues or concerns TLS drain will remain until evaluated in clinic- vacutainer not to be more than half full. Accurate documentation of output. Referrals: Jose G Leal MD [Primary Care Provider] - (in 1-2 weeks) Julissa Chacon GLOVE OPERATOR [Advanced Practice Nurse] - 01/21/17 9:00 am Dylon Gomez DPM [Partnered Physician] - (in 1 week) Prescriptions: HYDROcodone/Acet 7.5/325 mg [[place] 7.5-325 mg] 1 tab PO Q4HR PRN #14 tab PRN Reason: moderate to severe pain Docusate [Colace] 100 mg PO BID PRN #30 capsule PRN Reason: Constipation Levofloxacin 750 MG/150 ML [Levaquin Premix 750mg/150 mL] 750 mg IVPB DAILY #40 bag
[2017-01-03 11:21] VITALS: BP 105/58
[2017-01-03] MEDS ORDERED: *HR* HYDROcodone/Acet 7.5/325 mg TABLET PO PRN ×2 (11:58→12:00)
--- NOTE | 2017-01-03 12:23 | Podiatry Progress Note ---
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 Afebrile. VS stable. Plan: Patient may be discharged from podiatry standpoint. Patient states he is going to [facility]. 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 Will need daily dressing changes at LTCF, cleanse with saline, apply adaptic, 4x4 and kerlex- monitor for signs of dehiscence, monitor for signs of ischemia or infection. Call with any issues or concerns TLS drain will remain until evaluated in clinic- vacutainer not to be more than half full. Accurate documentation of output. Will need to be seen in clinic next week with , Myself or Buck- nurse to make appointment. 01/01/17 Patient stable today Plan: OR tomorrow with for TMA NPO after midnight Patient requesting something for pain to get him through the evening Labs stable Patient agreeable to surgical plan VS stable Continue current antibiotics as outlined per ID 12/31/16 Assessment: Wound vac intact, running without issue- patient complains of burning pain to foot s/p incision bone cortex for osteomyelitis #3 metatarsal, open amputation of toe #3 with metatarsal, apply wound vac by Dr. Gomez on 12/24/16. WBC 8.0 afebrile Plan: Continue wound vac therapy Plan is right TMA on 01/02/17 per Blood Cultures: NGTD, Wound cultures isolated Proteus mirabilis and citrobacter freundii. Infectious Disease discontinued vancomycin. Currently on Zosyn. Vascular note appreciated. Infectious disease noted appreciated.. Due to patients complaints of pain, will write for 1x dose of dilaudid 0.5mg IVP - Patient has had occasional low BP- please monitor BP Prior to administration- do not administer for SBP <95 Qualifiers: Diabetic foot ulcer location: unspecified part of foot Diabetes mellitus type: type 2 Laterality: right Non-pressure ulcer stage: unspecified non- pressure ulcer stage Qualified Code(s): E11.621 - Type 2 diabetes mellitus with foot ulcer; L97.519 - Non-pressure chronic ulcer of other part of right foot with unspecified severity Subjective Interval history: Patient is s/p #1 complete TMA right foot, #2 adjacent tissue transfer with excision of ulceration primary closure and placement TLS drain on 01/03/2017 which followed incision bone cortex for osteomyelitis #3 metatarsal, open amputation of toe #3 with metatarsal, apply wound vac by Dr. Gomez on 12/24/16. Patient resting comfortably on arrival today, sitting to side of bed. Surgical dressing intact. Some strikethrough drainage noted. Patient awaiting discharge to LTCF. Denies any fevers, chills, n/v or flu like symptoms. Rates pain 08/19 Objective - Vital Signs Vital Signs: Vital Signs Temp Pulse Resp BP Pulse Ox 01/03/17 11:20 98.4 F 84 16 105/58 97 01/03/17 06:34 98.1 F 86 18 104/63 96 01/03/17 04:09 98.3 F 81 16 100/52 95 01/02/17 22:58 99.2 F 86 15 110/53 98 01/02/17 19:29 98.5 F 71 15 110/51 97 01/02/17 16:22 82 16 106/56 01/02/17 15:53 98.2 F 82 16 106/56 01/02/17 14:05 98.1 F 82 18 97/57 93 01/02/17 14:02 98.1 F 82 18 108/49 93 01/02/17 13:00 98.2 F 82 18 103/67 94 Intake and Output 01/02/17 01/03/17 01/03/17 23:59 07:59 15:59 Intake Total 350 / 350 100 / 100 Output Total 610 / 610 Balance 340 / 340 -510 / -510 Intake: IV Fluids 100 / 100 100 / 100 Zosyn 3.375 GM In 100 / 100 100 / 100 Dextrose 5% (Minibag+) 100 ML 100 ML @ 25 mls/hr IVPB Q8HR [facility] Rx#: [id number] Oral 250 / 250 Output: Urine 600 / 600 Wound Drainage Right Foot Other: # Voids 1 Weight 80.7 kg Blood Glucose* 276 138 171 Patient Weight 01/03/17 23:59 Weight 80.7 kg - Exam Exam: Podiatry General Exam: General appearance: alert awake oriented X 3. Calm and pleasant, no acute distress.. Vascular: Pedal pulses per signal. No evidence of cyanosis, pallor or rubor, Edema graded at 1+/4, Skin Temperature warm, No calf pain with manual compression. capillary refill time is immediate to dorsal aspect of foot. No digits remaining. Neurologic: Sensation intact with light touch to foot. . Minimal sensation to light or moderate touch. S/P Strikethrough Drainage noted to surgical dressing. No acute bleed noted. TLS drain in place. 3ml in vac at this time. Nurse states overnight 10ml was removed. She has not changed or charted any today. 35ml was removed post op yesterday. Sutures intact to incision line, no signs of dehiscence. There is a small area of purple discoloration noted to mid incision flap. This appears to likely be due to congestion but will need to be monitored closely for signs of necrosis. No open area, no drainage, no odor, mild erythema and edema, expected post op. no streaking. - Lab Result Diagrams: 01/03/17 05:14 01/03/17 05:14 Labs: Abnormal lab results RBC 3.06 M/mcL (4.19-5.50) L 01/03/17 05:14 Hgb 9.3 g/dL (12.9-16.9) L 01/03/17 05:14 Hct 29.6 % (37.5-50.1) L 01/03/17 05:14 MCHC 31.4 g/dL (31.6-35.5) L 01/03/17 05:14 Monocytes # 1.5 K/mcL (0.0-1.3) H 01/03/17 05:14 ESR 115 mm/hr (0-10) H 12/25/16 16:06 APTT 66.5 Seconds (26.0-36.0) H 12/26/16 05:54 Glucose 102 mg/dL (70-99) H 01/03/17 05:14 POC Glucose 138 (58-89) H 01/03/17 07:24 LDL Cholesterol, Calc 101 mg/dL (0-99) H 12/26/16 05:54 HDL Cholesterol 29 mg/dL (40-59) L 12/26/16 05:54 Cholesterol/HDL Ratio 5.1 (0-4.9) H 12/26/16 05:54 - VTE Documentation of Mechanical Device: Intermittent pneumatic compression device Consult Discharge Plan - Plan Referrals: Jose G Leal MD [Primary Care Provider] - Julissa Chacon CNP [Advanced Practice Nurse] - 01/21/17 9:00 am
--- NOTE | 2017-01-03 13:46 | Discharge Summary ---
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 Qualified Code(s) : E11.621 - Type 2 diabetes mellitus with foot ulcer; L97.509 - Non-pressure chronic ulcer of other part of unspecified foot with unspecified severity; Z79.4 - longterm (current) use of insulin (4) Atherosclerosis of [place] arteries of right leg with ulceration of other part of foot Priority: Secondary Status: Chronic (5) DVT prophylaxis Priority: Secondary Status: Acute (6) Left knee pain Priority: Secondary Status: Resolved Qualifiers: Chronicity: acute Qualified Code(s): M25.562 - Pain in left knee - Discharge Medications Prescriptions: HYDROcodone/Acet 7.5/325 mg [[place] 7.5-325 mg] 1 tab PO Q4HR PRN #14 tab PRN Reason: moderate to severe pain Docusate [Colace] 100 mg PO BID PRN #30 capsule PRN Reason: Constipation Levofloxacin 750 MG/150 ML [Levaquin Premix 750mg/150 mL] 750 mg IVPB DAILY #40 bag Home Medications: Ibuprofen/Pseudoephedrine HCl [Advil Cold & Sinus Caplet] 1 tab PO TID PRN 12/26 [History] Multivitamin [Multi-Day Vitamins] 1 each PO DAILY 01/10/16 [History] Linagliptin [Tradjenta] 5 mg PO DAILY 02/01/16 [History] metFORMIN [Glucophage] 500 mg PO BIDWM 02/01/16 [History] Gabapentin [Neurontin] 300 mg PO TID 05/15/16 [History] Insulin Glargine [Lantus] 20 unit SQ HS 05/15/16 [History] Insulin ASPART [NovoLOG] 0 unit SQ TIDWM 11/20/16 [History] Lactose-Reduced Food [Ensure High Protein] 1 bottle PO TIDWM 11/20/16 [History] Acetaminophen [Tylenol] 650 mg PO Q6HR PRN #0 tab 01/03/17 [Rx] Docusate [Colace] 100 mg PO BID PRN #30 capsule 01/03/17 [Rx] HYDROcodone/Acet 7.5/325 mg [[place] 7.5-325 mg] 1 tab PO Q4HR PRN #14 tab [Rx] Levofloxacin 750 MG/150 ML [Levaquin Premix 750mg/150 mL] 750 mg IVPB DAILY #40 bag 01/03/17 [Rx] Nicotine Patch [Nicoderm] 21 mg TD DAILY 01/03/17 [Rx] Allergies/Adverse Reactions: 3 Allergy/AdvReac Type Severity Reaction Status Date / Time No Known Allergies Allergy Verified 02/01/16 10:56 Date of admission: 12/31/16 11:36 Primary care physician: Jose G Leal Consults: 12/31/16 17:12 Consult to Office Helper Clerical [CONS] Routine Reason for SW Consult: Discharge planning 01/02/17 11:58 Consult to Physical Therapy [CONS] Routine Comment: Evaluate, develop and implement POC Reason for Consult: Discharge planning s/p amp 01/02/17 15:17 Consult to Occupational Therapy [CONS] Routine Comment: Evaluate, develop and implement POC Reason for Consult: discharge planning 01/03/17 09:02 Consult to Invasive Line Access Team [CONS] Routine Reason for Consult: home atb Line Type: EPIV Discharging clinician: Aden Sotelo Anticipated date of discharge: 01/03/17 - Patient Status Disposition: Transfer SNF Condition: Good Functional capacity at discharge: uses cane/walker Overall status at discharge: patient is progressing back to baseline - Discharge Instructions Follow Up With: Julissa Chacon CNP [Advanced Practice Nurse] - 01/21/17 9:00 am Jose G Leal MD [Primary Care Provider] - (in 1-2 weeks) Dylon Gomez DPM [Partnered Physician] - (in 1 week) Additional Instructions: Cleanse with saline, apply adaptic, 4x4 and kerlex- monitor for signs of dehiscence, monitor for signs of ischemia or infection. Call with any issues or concerns TLS drain will remain until evaluated in clinic- vacutainer not to be more than half full. Accurate documentation of output. - Diet and Activity Activity: as per physical therapy Diet: diabetic diet, low salt diet Hospital course: Mr. Escobar is a 56 year old male patient with history of diabetes mellitus type 2 , was hospitalized here with acute osteomyelitis and foot ulcer involving the right foot. He was started on treatment with IV antibiotics and infectious disease and podiatry were consulted. After evaluating patient, patient was taken to the OR and underwent amputation of toe #3 along with incision of the bone cortex for diagnosis of osteomyelitis of metatarsal #3. These wounds were cultured and were growing Proteus mirabilis and Citrobacter freundii. Vascular surgery was consulted to evaluate the patient's lower extremity vasculature to see if he needed any revascularization prior to definitive treatment for his osteomyelitis. At this time, vascular surgery did not recommend any further procedures. Patient then underwent complete transmetatarsal amputation yesterday. Infectious disease has continued to follow the patient and recommends that the patient receive intravenous antibiotics for a duration of 4- 6 weeks. Patient was evaluated by physical therapy and recommended placement to skilled rehabilitation. Patient will be discharged from the hospital once he is bed available for him. He will follow up with podiatry and infectious disease after discharge for further management of his right foot infection. - Time Spent with Patient Total time spent providing and/or coordinating discharge services: Greater than 30 minutes (45 min) - Constitutional Vitals: Temp Pulse Resp BP Pulse Ox 98.4 F 84 16 105/58 97 01/03/17 11:20 01/03/17 11:20 01/03/17 11:20 01/03/17 11:20 01/03/17 11:20 General appearance: Present: cooperative, mild distress, A&O X 3, pleasant, answers questions appropriately - Respiratory Respiratory exam: Present: CTAB. Absent: accessory muscle use, rales, rhonchi, wheezes - Cardiovascular Cardiovascular exam: Present: RRR, +S1, +S2. Absent: diastolic murmur, gallop, rubs, systolic murmur - GI/Abdominal GI/Abdominal exam: Present: normal bowel sounds, soft, no peritoneal signs. Absent: distended, tenderness - Extremities Exam Extremities exam: Present: warm, radial pulses palpable and symmetrical. Absent : calf tenderness, cyanotic, pedal edema Additional comments: right foot bandaged - Skin Skin exam: Present: dry, intact - VTE Documentation of Mechanical Device: Intermittent pneumatic compression device
--- NOTE | 2017-01-03 13:50 | Physician Discharge Referral ---
ExtendedCare Referral Info Provider in Charge after Transfer: PCP Institutional Level of Care: Skilled - Diagnosis (1) Osteomyelitis of foot, right, acute Priority: Primary Status: Suspected (2) Anemia of chronic disease Priority: Secondary Status: Acute (3) Diabetes Priority: Secondary Status: Chronic (4) Atherosclerosis of [place] arteries of right leg with ulceration of other part of foot Priority: Secondary Status: Chronic (5) DVT prophylaxis Priority: Secondary Status: Acute (6) Left knee pain Priority: Secondary Status: Resolved Prognosis: Fair Aware of Diagnosis: Patient Aware of Prognosis: Patient - Transfer Medications Prescriptions: HYDROcodone/Acet 7.5/325 mg [[place] 7.5-325 mg] 1 tab PO Q4HR PRN #14 tab PRN Reason: moderate to severe pain Docusate [Colace] 100 mg PO BID PRN #30 capsule PRN Reason: Constipation Levofloxacin 750 MG/150 ML [Levaquin Premix 750mg/150 mL] 750 mg IVPB DAILY #40 bag Home Medications: Ibuprofen/Pseudoephedrine HCl [Advil Cold & Sinus Caplet] 1 tab PO TID PRN 12/26 [History] Multivitamin [Multi-Day Vitamins] 1 each PO DAILY 01/10/16 [History] Linagliptin [Tradjenta] 5 mg PO DAILY 02/01/16 [History] metFORMIN [Glucophage] 500 mg PO BIDWM 02/01/16 [History] Gabapentin [Neurontin] 300 mg PO TID 05/15/16 [History] Insulin Glargine [Lantus] 20 unit SQ HS 05/15/16 [History] Insulin ASPART [NovoLOG] 0 unit SQ TIDWM 11/20/16 [History] Lactose-Reduced Food [Ensure High Protein] 1 bottle PO TIDWM 11/20/16 [History] Acetaminophen [Tylenol] 650 mg PO Q6HR PRN #0 tab 01/03/17 [Rx] Docusate [Colace] 100 mg PO BID PRN #30 capsule 01/03/17 [Rx] HYDROcodone/Acet 7.5/325 mg [[place] 7.5-325 mg] 1 tab PO Q4HR PRN #14 tab [Rx] Levofloxacin 750 MG/150 ML [Levaquin Premix 750mg/150 mL] 750 mg IVPB DAILY #40 bag 01/03/17 [Rx] Nicotine Patch [Nicoderm] 21 mg TD DAILY 01/03/17 [Rx] Allergies/Adverse Reactions: 3 Allergy/AdvReac Type Severity Reaction Status Date / Time No Known Allergies Allergy Verified 02/01/16 10:56 - Respiratory Orders Smoking Cessation: Smoking cessation has been advised. For more information, call the [place] Tobacco Quit Line at 4-646-PXOU-NOW. - Lab Orders Lab Orders: Other (include drug levels w/frequency) (CBC, basic panel, ESR, CRP every Friday while patient is receiving intravenous antibiotics.) - Ancillary Orders May consult with Dentist, Hospitality Ambassador, Metalizing Supervisor PRN - Advance Directives Code Status: Full Code - Rehabiliation Orders Rehab Potential: Fair Rehab Orders: Evaluation for Physical Therapy, Evaluation for Occupational Therapy - Treatments List/Other: Wound care: Cleanse with saline, apply adaptic, 4x4 and kerlex- monitor for signs of dehiscence, monitor for signs of ischemia or infection. Call with any issues or concerns TLS drain will remain until evaluated in clinic- vacutainer not to be more than half full. Accurate documentation of output. - Diet Orders No Concentrated Sweets (and diabetic), Cardiac CERTIFICATION: I certify that the transfer of the above named patient to an Extended Care Facility is necessary for the continuing treatment of the diagnosis listed. The above information is true and accurate reflection of patient's current condition. Confidential - Redisclosure prohibited without a patient's written consent.
== END 2017-01-03 16:56 | DRG 617 ==
LOC: EMEROO 15:20 → 3NENU 15:20 → SUATTDRO 18:11 → 3NENU 19:35
PROVIDERS: ADMIT Registered Nurse; ATTEND Internal Medicine

== ENCOUNTER 2018-03-04 18:11 | Inpatient (IN) ==
[2018-03-04] MEDS ORDERED: Ondansetron 4 MG/2 ML VIAL ONE (18:34)
[2018-03-04] MEDS ORDERED: Ondansetron 4 MG/2 ML VIAL IVP ONE (18:34)
[2018-03-04] MEDS: 0.9 % Sodium Chloride 1,000 ML IVC ONE ×2 (18:38→20:39)
[2018-03-04] MEDS ORDERED: 0.9 % Sodium Chloride 1,000 ML IVC ONE ×2 (18:46→20:10)
[2018-03-04 18:47] LABS: Basophils # 0.1 K/mcL (0.0-0.2); Basophils % 0.2 %; Hematocrit 41.8 % (37.5-50.1); Hemoglobin 14.1 g/dL (12.9-16.9); Immature Granulocytes % 0.6 % (0-4); Lymphocytes # 1.1 K/mcL (0.6-4.6); Lymphocytes % 5.5 %; Mean Corpuscular HGB Conc 33.7 g/dL (31.6-35.5); Mean Corpuscular Hemoglobin 32.9 pg (28.0-33.3); Mean Corpuscular Volume 97.4 fL (83.0-100.0); Mean Platelet Volume 11.3 fL (9.4-12.4); Monocytes # 2.5 K/mcL (0.0-1.3); Monocytes % 12.2 %; Neutrophils # 16.4 K/mcL (1.6-8.9); Platelet Count 190 K/mcL (140-400); Red Blood Count 4.29 M/mcL (4.19-5.50); Red Cell Distribution Width 13.1 % (11.5-14.5); Segmented Neutrophils % 81.5 %
--- NOTE | 2018-03-04 18:48 | Emergency Department Note ---
Disposition Clinical Impression: Nausea vomiting and diarrhea, Dehydration, Tachycardia Fever Qualifiers: Fever type: unspecified Qualified Code(s): R50.9 - Fever, unspecified Disposition: Still a Patient Condition: Fair Referrals: Jose G Leal MD [Primary Care Provider] - Forms: ED Satisfaction Letter Time of Disposition: 19:00 Nausea/Vomiting/Diarrhea HPI - General Chief complaint: ED Nausea/Vomiting/Diarrhea Stated complaint: N/V/D Time Seen by Provider: 03/04/18 18:21 Source: patient, family (Son) Limitations: no limitations Nursing Notes Reviewed: Yes Vital Signs Reviewed: Yes - History of Present Illness HPI Narrative: 57-year-old male history of insulin-dependent diabetes mellitus presents emergency department with his son with complaints of weakness nausea vomiting diarrhea. For the past 4 days sees been experiencing nausea vomiting and diarrhea without any chest pain or or abdominal pain. States his symptoms have not improve other past 4 days he has vomited 4 times nonbloody. He has been having loose watery stools with multiple episodes today almost every 23 hours. He has been feeling weak with muscle aches as well as fever and chills. No documented fevers at home only tactile. Patient is febrile here initial check 100.9 on repeat 103. He does report some congestion. Denies any chest pain or shortness of breath. No recent injury or trauma. No recent hospitalization. He does not take any antibiotics. No recent travel, rashes or camping. No changes to his diet. Denies any urinary symptoms. Denies any bloody stool, black tarry stool, hemoptysis or hematemesis. No history of cardiac ischemic disease. No other sick contacts. History of appendectomy. He lives with his brother and his son came to see him today states that he appeared confused and unsteady on his feet. Patient was recently evaluated here in the emergency department a month ago due to confusion and a fall with a headache injury and was sent home. Pt Subjective Complaint: nausea, vomiting, diarrhea - Related Data Home Medications Medication Instructions Recorded Confirmed Ibuprofen/Pseudoephedrine HCl 1 tab PO TID PRN 12/27/15 03/05/17 [Advil Cold & Sinus Caplet] Multivitamin [Multi-Day Vitamins] 1 each PO DAILY 01/10/16 03/05/17 Linagliptin [Tradjenta] 5 mg PO DAILY 02/01/16 03/05/17 metFORMIN [Glucophage] 500 mg PO BIDWM 02/01/16 03/05/17 Gabapentin [Neurontin] 300 mg PO TID 05/15/16 03/05/17 Insulin Glargine [Lantus] 20 unit SQ HS 05/15/16 03/05/17 Insulin ASPART [NovoLOG] 0 unit SQ TIDWM 11/20/16 03/05/17 Lactose-Reduced Food [Ensure High 1 bottle PO TIDWM 11/20/16 03/05/17 Protein] Lisinopril 2.5 mg PO DAILY 03/05/17 03/05/17 Previous Rx's Medication Instructions Recorded Acetaminophen [Tylenol] 650 mg PO Q6HR PRN #0 tab 01/03/17 Docusate [Colace] 100 mg PO BID PRN #30 capsule 01/03/17 Nicotine Patch [Nicoderm] 21 mg TD DAILY 01/03/17 Tramadol HCl [Ultram] 1 - 2 tab PO TID PRN 4 Days #15 tab 11/12/17 Allergies Allergy/AdvReac Type Severity Reaction Status Date / Time No Known Allergies Allergy Verified 03/04/18 18:18 All systems ED: reviewed and negative except as stated. Review of Systems: As Per HPI Constitutional: Reports: fever, chills, weakness ENT ED: Reports: congestion Cardiovascular: Denies: chest pain, dyspnea on exertion Respiratory: Denies: cough, dyspnea Gastrointestinal: Reports: nausea, vomiting, diarrhea. Denies: abdominal pain, hematemesis, melena, hematochezia Genitourinary: Denies: dysuria Musculoskeletal: Denies: back pain, neck pain Integumentary: Denies: rash, abrasion Neurological: Reports: weakness, confusion, abnormal gait. Denies: headache, numbness, vertigo Psychiatric: Denies: anxiety, depression Past Medical History - Past Medical History Attestation: Yes The following information was validated with the patient. Source: patient Medical history: Reports: diabetes, hyperlipidemia, hypertension, other Surgical history: Reports: other Psychiatric history: Reports: no psych history - Social History Smoking Status: Current every day smoker Smokeless Tobacco Status: No Alcohol use: Reports: occasionally Drug use: Reports: none Physical Exam - General Limitations: no limitations General appearance: alert, in no apparent distress, other (appears older than stated age, ill appearing) - Head Head exam: atraumatic, normocephalic, normal inspection - Eye Eye exam: Present: normal appearance, PERRL, EOMI. Absent: scleral icterus - ENT ENT exam: normal exam, normal oropharynx, mucous membranes dry - Neck Neck exam: Present: normal inspection, full ROM, trachea midline - Chest Chest inspection: Present: normal inspection, symmetric chest wall rise. Absen t: tenderness - Respiratory Respiratory exam: Present: normal lung sounds bilaterally. Absent: respiratory distress, wheezes - Cardiovascular Cardiovascular exam: Present: regular rate, normal rhythm, normal heart sounds - Expanded Cardiovascular Exam Peripheral pulses: 2+: radial (R), radial (L) - Abdominal Exam Abdominal exam: Present: soft, Non-Tender, normal bowel sounds. Absent: tenderness, distention, guarding, rebound, rigidity - Extremities Exam Extremities exam: Present: normal inspection, full ROM, other (stool is seen on his lower extremities). Absent: tenderness, pedal edema - Neurological Exam Neurological exam: Present: alert, oriented X3, CN II-XII intact - Expanded Neurological Exam Patient oriented to: Present: person, place, time Speech: Present: fluid speech Cranial nerves: EOM function (II, III, IV, ): Normal, facial sensation (V): Normal, facial palsy (VII): Normal, gag reflex (IX): Normal, spinal accessory function (XI): Normal, tongue deviation (XII): Normal Motor strength - LUE: 5/5 Motor strength - RUE: 5/5 Motor strength - LLE: 5/5 Motor strength - RLE: 5/5 Upper motor neuron exam: renny neglect: Absent bilaterally Sensory exam upper extremity: light touch: Normal Sensory exam lower extremity: light touch: Normal Coma Scale Eye Opening: Spontaneous Coma Scale Motor Response: Obeys Commands Coma Scale Verbal Response: Oriented Coma Scale Total: 15 - Psychiatric Psychiatric exam: Present: normal affect, normal mood - Skin Skin exam: Present: warm, dry, intact, pallor, other (poor skin turgor). Absent: rash, cyanosis, diaphoresis Course Course Narrative: Concern for sepsis as patient is tachycardic and febrile. He is reporting weakness, chills with associated nausea vomiting and diarrhea. No pain at this time in denies any chest pain in the past. His EKG appears abnormal with ST changes but not STEMI. Sepsis workup initiated including a CT of the head in the abdomen. The family is at bedside and states he has been acting more confused stating that he is more lethargic but improved today. He is awake and alert and oriented to person place and time. Tylenol for his fever. Zofran for his nausea. Will also obtain influenza and c. diff culture. Patient was seen and evaluated during shift change it will be signed out to nighttime physician is Dr. Vee and Dr. Man. Please see their note for further details and final disposition. Vital Signs Temperature 100.9 F H 03/04/18 18:17 Pulse Rate 100 03/04/18 18:17 Respiratory Rate 18 03/04/18 18:17 Blood Pressure 119/65 03/04/18 18:17 O2 Sat by Pulse Oximetry 94 03/04/18 18:17 Temperature 103.1 F H 03/04/18 18:26 Pulse Rate 98 03/04/18 18:26 Respiratory Rate 18 03/04/18 18:26 Blood Pressure 137/55 03/04/18 18:26 O2 Sat by Pulse Oximetry 96 03/04/18 18:26 Oxygen Delivery Oxygen Delivery Room Air Nausea/Vomiting/Diarrhea - MDM Narrative Medical decision making narrative: Patient was discussed with my attending physician who agrees with ED management and final disposition. They independently evaluated the patient. Please refer to their attestation to this encounter for additional information. This note was generated by [employer] voice recognition software and as a result grammatical or spelling errors may occur using this program. - Medical Records Medical records reviewed: Yes I reviewed the patient's medical records. - Lab Data Result diagrams: 03/04/18 18:27 - EKG Data EKG attestation: Yes I reviewed and interpreted this EKG. EKG results narrative: EKG performed 1833 normal sinus rhythm 96 beats per minute, normal axis, good R wave progression, there is some slight ST changes elevations in V1 into that are minimal and appear consistent with prior EKG however there are also some slight ST depressions in the lateral leads that appears new. Intervals otherwise within normal limits. The EKG is compared to prior one from 01/30/2018. No STEMI S.B.A.R. - S.B.A.R. Situation: Demographics, MOA Background: Presenting Complaint, Relevant PMH, Meds, & Allergies Assessment: Vital Signs, Course and respsone to treatment, Exam Concerns, Patient/Family Expectation, Pertinant Lab Results, Outstanding Labs Recommendation: Barrier(s) to disposition, Recommendation based on pending s tudies, treatments, or consults S.B.A.R. Report Given to: Dr. Vee and Donovan ArteagaBPrisca Repor Time: 18:58 Attestation Statement - Attestation Attestation: I, Daniel Holly DO, examined this patient [id number] and my medical decision-making was reviewed with Itz Tamayo DO , Resident Physician. I agree with the documented findings, disposition and treatment plan as described except to the extent set forth below. Please see my progress notes for details.
--- NOTE | 2018-03-04 18:59 | Emergency Department Note ---
Disposition Clinical Impression: Nausea vomiting and diarrhea, Dehydration, Tachycardia Fever Qualifiers: Fever type: unspecified Qualified Code(s): R50.9 - Fever, unspecified Disposition: Still a Patient Condition: Fair Referrals: Jose G Leal MD [Primary Care Provider] - Forms: ED Satisfaction Letter Time of Disposition: 18:59 General Adult HPI - General Chief complaint: ED Nausea/Vomiting/Diarrhea Stated complaint: N/V/D Time Seen by Provider: 03/04/18 18:21 Source: patient, family (Son) Limitations: no limitations - History of Present Illness Pain Scale: 0 - Related Data Home Medications Medication Instructions Recorded Confirmed Ibuprofen/Pseudoephedrine HCl 1 tab PO TID PRN 12/27/15 03/05/17 [Advil Cold & Sinus Caplet] Multivitamin [Multi-Day Vitamins] 1 each PO DAILY 01/10/16 03/05/17 Linagliptin [Tradjenta] 5 mg PO DAILY 02/01/16 03/05/17 metFORMIN [Glucophage] 500 mg PO BIDWM 02/01/16 03/05/17 Gabapentin [Neurontin] 300 mg PO TID 05/15/16 03/05/17 Insulin Glargine [Lantus] 20 unit SQ HS 05/15/16 03/05/17 Insulin ASPART [NovoLOG] 0 unit SQ TIDWM 11/20/16 03/05/17 Lactose-Reduced Food [Ensure High 1 bottle PO TIDWM 11/20/16 03/05/17 Protein] Lisinopril 2.5 mg PO DAILY 03/05/17 03/05/17 Previous Rx's Medication Instructions Recorded Acetaminophen [Tylenol] 650 mg PO Q6HR PRN #0 tab 01/03/17 Docusate [Colace] 100 mg PO BID PRN #30 capsule 01/03/17 Nicotine Patch [Nicoderm] 21 mg TD DAILY 01/03/17 Tramadol HCl [Ultram] 1 - 2 tab PO TID PRN 4 Days #15 tab 11/12/17 Allergies Allergy/AdvReac Type Severity Reaction Status Date / Time No Known Allergies Allergy Verified 03/04/18 18:18 Constitutional: Reports: fever, chills, weakness ENT ED: Reports: congestion Cardiovascular: Denies: chest pain, dyspnea on exertion Respiratory: Denies: cough, dyspnea Gastrointestinal: Reports: nausea, vomiting, diarrhea. Denies: abdominal pain, hematemesis, melena, hematochezia Genitourinary: Denies: dysuria Musculoskeletal: Denies: back pain, neck pain Integumentary: Denies: rash, abrasion Neurological: Reports: weakness, confusion, abnormal gait. Denies: headache, numbness, vertigo Psychiatric: Denies: anxiety, depression Past Medical History - Past Medical History Medical history: Reports: diabetes, hyperlipidemia, hypertension, other Surgical history: Reports: other Psychiatric history: Reports: no psych history - Social History Smoking Status: Current every day smoker Smokeless Tobacco Status: No Alcohol use: Reports: occasionally Drug use: Reports: none Physical Exam - General Limitations: no limitations General appearance: alert, in no apparent distress, other (appears older than s tated age, ill appearing) Course Vital Signs Temperature 100.9 F H 03/04/18 18:17 Pulse Rate 100 03/04/18 18:17 Respiratory Rate 18 03/04/18 18:17 Blood Pressure 119/65 03/04/18 18:17 O2 Sat by Pulse Oximetry 94 03/04/18 18:17 Temperature 103.1 F H 03/04/18 18:26 Pulse Rate 98 03/04/18 18:26 Respiratory Rate 18 03/04/18 18:26 Blood Pressure 137/55 03/04/18 18:26 O2 Sat by Pulse Oximetry 96 03/04/18 18:26 Oxygen Delivery Oxygen Delivery Room Air Medical Decision Making - Lab Data Result diagrams: 03/04/18 18:27 Lab Results 03/04/18 03/04/18 Range/Units 18:27 18:27 WBC 20.2 H (4.3-11.1) K/mcL RBC 4.29 (4.19-5.50) M/mcL Hgb 14.1 (12.9-16.9) g/dL Hct 41.8 (37.5-50.1) % MCV 97.4 (83.0-100.0) fL MCH 32.9 (28.0-33.3) pg MCHC 33.7 (31.6-35.5) g/dL RDW 13.1 (11.5-14.5) % Plt Count 190 (140-400) K/mcL MPV 11.3 (9.4-12.4) fL Immature Gran % 0.6 (0-4) % Seg Neutrophils % 81.5 % Lymphocytes % 5.5 % Monocytes % 12.2 % Eosinophils % 0.0 % Basophils % 0.2 % Neutrophils # 16.4 H (1.6-8.9) K/mcL Lymphocytes # 1.1 (0.6-4.6) K/mcL Monocytes # 2.5 H (0.0-1.3) K/mcL Eosinophils # 0.0 (0.0-0.6) K/mcL Basophils # 0.1 (0.0-0.2) K/mcL Lactic Acid 2.3 H (0.5-2.2) mmol/L Attestation Statement - Attestation Attestation: I, Daniel Holly DO, examined this patient [id number] and my medical decision-making was reviewed with Itz Tamayo DO , Resident Physician. I agree with the documented findings, disposition and treatment plan as described except to the extent set forth below. Please see my progress notes for details. 57-year-old male presents emergency room for evaluation of generalized malaise fevers tachycardia. Patient has had nausea vomiting and diarrhea for the last 4 days. He denies chest pain shortness of breath headache or vision change. He has had intermittent fevers and chills along with the persistent nausea vomiting and diarrhea. Vital signs on presentation otherwise stable outside of a fever and tachycardia. Patient was brought back to the bed as a systemic inflammatory response alert. Patient with sepsis workup started this point including CBC c hemistry troponin and BNP lactic acid magnesium and phosphorus. Patient will also have CT imaging the abdomen chest x-ray urinalysis completed here at this time. Fluids and nausea medication will be given along with Tylenol. Antibiotic will be held until definitive source has been determined. Patient is otherwise mentating appropriately alert oriented and speaking in full sentences. Head is atraumatic pupils are round reactive. Mucous membranes are slightly dry. Trachea is midline. Lungs are clear heart is regular. Abdomen is soft nontender nondistended no guarding no rigidity no peritoneal symptoms. Skin turgor appears to be poor. He shows diffuse depression with no specific signs of ST segment elevation. This is worse in comparison to previous EKG. Patient is denying chest pain and does not clinically meet criteria for STEMI evaluation or STEMI alert. Continuation of care fluid resuscitation antibiotic regiment as well as imaging modalities would be completed by the nighttime physician Dr. Man and Dr. Vee. Detailed review the presentation symptoms medical intervention and evaluation were discussed at length. Patient is otherwise stable but requiring further evaluation. See detailed documentation the physical exam, medical intervention, medical decision-making and disposition the resident physician's note. No critical care applied the patient's treatment course at this time.
[2018-03-04] MEDS ORDERED: Piperacillin/Tazobactam 3.375 GM in 0.9 % Sodium Chloride Mini Bag 100 ML IVPB ONE (19:10)
[2018-03-04 19:16] LABS: Alanine Aminotransferase 7 Units/L (7-52); Albumin/Globulin Ratio 1.2 (1.1-2.2); Alkaline Phosphatase 70 Units/L (34-104); Aspartate Amino Transferase 11 Units/L (13-39); BUN/Creatinine Ratio 20 (6-26); Bilirubin,Total 1.1 mg/dL (0.3-1.0); Blood Urea Nitrogen 22 mg/dL (6-20); Calcium 10.1 mg/dL (8.6-10.3); Carbon Dioxide 21 mEq/L (23-29); Chloride 95 mEq/L (98-107); Globulin 3.3 g/dL (2.4-3.5); Glucose 276 mg/dL (70-105); Lipase < 3 Units/L (11-82); Magnesium 1.6 mg/dL (1.6-2.6); Osmolality,Calculated 281 (280-300); Phosphorous 2.6 mg/dL (2.7-4.5); Potassium 4.2 mEq/L (3.5-5.1); Sodium 129 mEq/L (136-145); Total Protein 7.3 g/dL (6.4-8.9); Troponin I 0.04 ng/mL (< 0.04); eGFR For Non-African Americans > 60 (> 60)
[2018-03-04] MEDS ORDERED: Aspirin 325 MG TABLET PO ONE (19:17)
--- NOTE | 2018-03-04 19:20 | Emergency Department Note ---
Disposition Clinical Impression: Nausea vomiting and diarrhea, Dehydration, Tachycardia, Acute electrocardiogram changes, Lactic acidosis Fever Qualifiers: Fever type: unspecified Qualified Code(s): R50.9 - Fever, unspecified LLL pneumonia Qualifiers: Pneumonia type: due to unspecified organism Qualified Code(s): J18.1 - Lobar pneumonia, unspecified organism Disposition: Admitted As Inpatient Condition: Fair Referrals: Jose G Leal MD [Primary Care Provider] - Forms: ED Satisfaction Letter Time of Disposition: 20:30 Nausea/Vomiting/Diarrhea HPI - General Chief complaint: ED Nausea/Vomiting/Diarrhea Stated complaint: N/V/D Time Seen by Provider: 03/04/18 18:21 Source: patient, family (Son) Limitations: no limitations Nursing Notes Reviewed: Yes Vital Signs Reviewed: Yes - History of Present Illness HPI Narrative: Patient received on sign out from the day team, Dr. Holly and Dr. Tamayo. Ple ase see their note for intake H&P. HPI in brief: 57-year-old male presents from home for evaluation of nausea, vomiting, diarrhea, weakness. Onset 4 days ago. Vomiting total of 4 times (nonbilious, nonbloody). Multiple episodes of loose watery stools. He does have associated generalized weakness, muscle aches, chills. He felt warm at home but did not objectively measure fever. Patient's son is with him today and states that he appeared slightly confused and unsteady on his feet. PMH: Diabetes mellitus insulin-dependent, hypertension on lisinopril with no beta blockers or calcium channel blockers, hyperlipidemia. Abdominal surgical history: Remote appendectomy. ROS: Positive: As above Negative: Dyspnea, chest pain, abdominal pain. No recent injury or trauma. No recent antibiotic use, travel, camping. No recent hospitalizations. No dysuria. No melena, hematochezia, hemoptysis, hematuria, hematemesis. Pt Subjective Complaint: nausea, vomiting, diarrhea - Related Data Home Medications Medication Instructions Recorded Confirmed Multivitamin [Multi-Day Vitamins] 1 each PO DAILY 01/10/16 03/04/18 Gabapentin [Neurontin] 300 mg PO QID 05/15/16 03/04/18 Insulin ASPART [NovoLOG] 0 unit SQ TIDWM 11/20/16 03/04/18 Lisinopril 2.5 mg PO DAILY 03/05/17 03/04/18 Aspirin [Adult Aspirin] 81 mg PO DAILY 03/04/18 03/04/18 Insulin Glargine,Hum.rec.anlog 20 unit SQ QPM PRN 03/04/18 03/04/18 [Rickiaglfabiana Moreland U-100] Lovastatin 10 mg PO QPM 03/04/18 03/04/18 Metformin HCl 1,000 mg PO BID 03/04/18 03/04/18 Allergies Allergy/AdvReac Type Severity Reaction Status Date / Time No Known Allergies Allergy Verified 03/04/18 18:18 All systems ED: reviewed and negative except as stated. Review of Systems: As Per HPI Constitutional: Reports: fever, chills, weakness ENT ED: Reports: congestion Cardiovascular: Denies: chest pain, dyspnea on exertion Respiratory: Denies: cough, dyspnea Gastrointestinal: Reports: nausea, vomiting, diarrhea. Denies: abdominal pain, hematemesis, melena, hematochezia Genitourinary: Denies: dysuria Musculoskeletal: Denies: back pain, neck pain Integumentary: Denies: rash, abrasion Neurological: Reports: weakness, confusion, abnormal gait. Denies: headache, numbness, vertigo Psychiatric: Denies: anxiety, depression Past Medical History - Past Medical History Medical history: Reports: diabetes, hyperlipidemia, hypertension, other Surgical history: Reports: other Psychiatric history: Reports: no psych history - Social History Smoking Status: Current every day smoker Smokeless Tobacco Status: No Alcohol use: Reports: occasionally Drug use: Reports: none Physical Exam Vital Signs Reviewed General: Patient is alert, oriented, and in no acute distress. Head: atraumatic, normocephalic Eye: normal appearance, PERRL, EOMI, no scleral icterus, no conjunctival injection ENT: mucous membranes moist, normal external ear exam Neck: normal inspection, trachea midline, full ROM Chest: normal inspection, symmetric chest rise Respiratory: Good respiratory effort. Bilateral breath sounds are clear without wheezing, crackles, or rhonchi. Cardiovascular: Regular rate and rhythm. No clicks, rubs, gallops, or murmors. Normal heart sounds. Abdomen: Scaphoid. Bowel sounds present normoactive x-4 quadrants. Abdomen is soft, nondistended, and nontender. No guarding or rebound. No organomegaly noted. Musculoskeletal: Spontaneously moving all extremities. Skin: warm, dry, intact. Neuro: Alert and oriented x4. Sensation light touch intact. Psych: Patient's affect is appropriate for situation. - General Limitations: no limitations General appearance: alert, in no apparent distress, other (appears older than stated age, ill appearing) Course Course Narrative: Patient was seen emergency department one month ago for fall with subsequent head injury, discharge home. Clinical concern is for sepsis. At the time of signout, workup is pending. Unsure if abdominal or other source. We will begin vancomycin and Zosyn for empiric coverage of sepsis with source unknown at this time. Chest x-ray read by radiology as pneumonitis. CT abdomen pelvis read by radiologist left lower lobe pneumonia with no acute abdominal findings. I discussed the patient's taken mycin and Zosyn which is ordered and hung prior to confirmation of left lower lobe pneumonia. This likely to be de-escalated on the inpatient side for community-acquired pneumonia. Serum hematology concerning for leukocytosis with white count 20.2. Serum chemistry concerning for hyponatremia with sodium of 129. Clinically suspect hypovolemic hyponatremia given the patient's dehydration. Patient has elevated lactate of 2.4. Fluids are running. Patient has elevated troponin of 0.02. No renal dysfunction. Provided aspirin as he denied melena and hematochezia.Suspect a component of demand ischemia given his lack of cardiac history and severity of his illness. On my evaluation of bedside, patient's systolic blood pressure was 85. Cuff was readjusted and appropriately positioned. Repeat BP was 99 with 1st L IVF completed, 2nd running. I requested a second IV and ordered a third liter of IV fluids. This will bring him to 40 mL/kg at the completion of the third liter. I discussed the above the patient. He is agreeable to admission for continued evaluation and management. Pending: Hepatitis panel, blood culture, C. difficile toxin screen.. I discussed the above with the admitting hospitalist, Dr. Cueva. He agrees to accept the patient. No additional questions or concerns this time. EKG #1 EKG dated 03/04/2018 at 18:33 interpreted as sinus rhythm with rate of 96. IN 154, QRS 107, QTC 441. Normal axis. [address] depression in leads 2, 3, aVF, V5, V6 new from previous EKG dated 01/30/2018 EKG #2 EKG dated 03/04/2018 and 19:[address] depression; no changes from EKG #1 above. Vital Signs Temperature 100.9 F H 03/04/18 18:17 Pulse Rate 100 03/04/18 18:17 Respiratory Rate 18 03/04/18 18:17 Blood Pressure 119/65 03/04/18 18:17 O2 Sat by Pulse Oximetry 94 03/04/18 18:17 Temperature 103.1 F H 03/04/18 18:26 Pulse Rate 85 03/04/18 19:33 Respiratory Rate 20 03/04/18 19:33 Blood Pressure 122/94 03/04/18 19:33 O2 Sat by Pulse Oximetry 94 03/04/18 19:33 Oxygen Delivery Oxygen Delivery Room Air Nausea/Vomiting/Diarrhea - Lab Data Result diagrams: 03/04/18 18:27 03/04/18 18:27 Lab Results 03/04/18 03/04/18 03/04/18 Range/Units 18:27 18:27 18:27 WBC 20.2 H (4.3-11.1) K/mcL RBC 4.29 (4.19-5.50) M/mcL Hgb 14.1 (12.9-16.9) g/dL Hct 41.8 (37.5-50.1) % MCV 97.4 (83.0-100.0) fL MCH 32.9 (28.0-33.3) pg MCHC 33.7 (31.6-35.5) g/dL RDW 13.1 (11.5-14.5) % Plt Count 190 (140-400) K/mcL MPV 11.3 (9.4-12.4) fL Immature Gran % 0.6 (0-4) % Seg Neutrophils % 81.5 % Lymphocytes % 5.5 % Monocytes % 12.2 % Eosinophils % 0.0 % Basophils % 0.2 % Neutrophils # 16.4 H (1.6-8.9) K/mcL Lymphocytes # 1.1 (0.6-4.6) K/mcL Monocytes # 2.5 H (0.0-1.3) K/mcL Eosinophils # 0.0 (0.0-0.6) K/mcL Basophils # 0.1 (0.0-0.2) K/mcL Sodium 129 L (136-145) mEq/L Potassium 4.2 (3.5-5.1) mEq/L Chloride 95 L (98-107) mEq/L Carbon Dioxide 21 L (23-29) mEq/L BUN 22 H (6-20) mg/dL Creatinine 1.08 (0.70-1.30) mg/dL Est GFR ( Amer) > 60 (> 60) Est GFR (Non-Af Amer) > 60 (> 60) BUN/Creatinine Ratio 20 (6-26) Glucose 276 H (70-105) mg/dL Calculated Osmolality 281 (280-300) Lactic Acid 2.3 H (0.5-2.2) mmol/L Calcium 10.1 (8.6-10.3) mg/dL Phosphorus 2.6 L (2.7-4.5) mg/dL Magnesium 1.6 (1.6-2.6) mg/dL Total Bilirubin 1.1 H (0.3-1.0) mg/dL AST 11 L (13-39) Units/L ALT 7 (7-52) Units/L Alkaline Phosphatase 70 (34-104) Units/L Troponin I 0.04 H* (< 0.04) ng/mL Serum Total Protein 7.3 (6.4-8.9) g/dL Albumin 4.0 (3.5-5.7) g/dL Globulin 3.3 (2.4-3.5) g/dL Albumin/Globulin Ratio 1.2 (1.1-2.2) Lipase < 3 L (11-82) Units/L Urine Color (Yellow) Urine Clarity (Clear) Urine pH (5.0-8.0) pH Units Ur Specific Spencer (1.010-1.025) Urine Protein (Neg-Trace) mg/dL Urine Glucose (UA) (Normal) mg/dL Urine Ketones (Negative) mg/dL Urine Blood (Negative) Urine Nitrite (Negative) Urine Bilirubin (Negative) Urine Urobilinogen (Normal) mg/dL Ur Leukocyte Esterase (Negative) Urine Microscopic RBC (0-3) per hpf Urine Microscopic WBC (0-3) per hpf Ur Squamous Epith Cells (None-Few) per lpf Urine Bacteria (None-Few) per hpf Hyaline Casts (None-Few) per lpf Ur Culture Indicated? (NO) 10/24/18 Range/Units 19:36 WBC (4.3-11.1) K/mcL RBC (4.19-5.50) M/mcL Hgb (12.9-16.9) g/dL Hct (37.5-50.1) % MCV (83.0-100.0) fL MCH (28.0-33.3) pg MCHC (31.6-35.5) g/dL RDW (11.5-14.5) % Plt Count (140-400) K/mcL MPV (9.4-12.4) fL Immature Gran % (0-4) % Seg Neutrophils % % Lymphocytes % % Monocytes % % Eosinophils % % Basophils % % Neutrophils # (1.6-8.9) K/mcL Lymphocytes # (0.6-4.6) K/mcL Monocytes # (0.0-1.3) K/mcL Eosinophils # (0.0-0.6) K/mcL Basophils # (0.0-0.2) K/mcL Sodium (136-145) mEq/L Potassium (3.5-5.1) mEq/L Chloride (98-107) mEq/L Carbon Dioxide (23-29) mEq/L BUN (6-20) mg/dL Creatinine (0.70-1.30) mg/dL Est GFR ( Amer) (> 60) Est GFR (Non-Af Amer) (> 60) BUN/Creatinine Ratio (6-26) Glucose (70-105) mg/dL Calculated Osmolality (280-300) Lactic Acid (0.5-2.2) mmol/L Calcium (8.6-10.3) mg/dL Phosphorus (2.7-4.5) mg/dL Magnesium (1.6-2.6) mg/dL Total Bilirubin (0.3-1.0) mg/dL AST (13-39) Units/L ALT (7-52) Units/L Alkaline Phosphatase (34-104) Units/L Troponin I (< 0.04) ng/mL Serum Total Protein (6.4-8.9) g/dL Albumin (3.5-5.7) g/dL Globulin (2.4-3.5) g/dL Albumin/Globulin Ratio (1.1-2.2) Lipase (11-82) Units/L Urine Color Yellow (Yellow) Urine Clarity Clear (Clear) Urine pH 5.5 (5.0-8.0) pH Units Ur Specific Spencer > 1.030 H (1.010-1.025) Urine Protein >=300 H (Neg-Trace) mg/dL Urine Glucose (UA) 500 H (Normal) mg/dL Urine Ketones 80 H (Negative) mg/dL Urine Blood Moderate H (Negative) Urine Nitrite Negative (Negative) Urine Bilirubin Moderate H (Negative) Urine Urobilinogen Normal (Normal) mg/dL Ur Leukocyte Esterase Trace H (Negative) Urine Microscopic RBC 5-15 H (0-3) per hpf Urine Microscopic WBC 5-15 H (0-3) per hpf Ur Squamous Epith Cells Moderate H (None-Few) per lpf Urine Bacteria None Seen (None-Few) per hpf Hyaline Casts None Seen (None-Few) per lpf Ur Culture Indicated? YES A (NO)
[2018-03-04 19:59] LABS: Bilirubin,Urine Moderate (Negative); Blood,Urine Moderate (Negative); Clarity,Urine Clear (Clear); Glucose,Urine (UA) 500 mg/dL (Normal); Ketones,Urine 80 mg/dL (Negative); Leukocyte Esterase,Urine Trace (Negative); Nitrite,Urine Negative (Negative); PH,Urine 5.5 pH Units (5.0-8.0); Protein,Urine >=300 mg/dL (Neg-Trace); Specific Gravity,Urine > 1.030 (1.010-1.025); Urobilinogen,Urine Normal (Normal)
[2018-03-04 20:10] LABS: Bacteria,Urine None Seen per hpf (None-Few); Hyaline Casts,Urine None Seen per lpf (None-Few); Squamous Epithelial Cell,Urine Moderate per lpf (None-Few)
[2018-03-04 20:15] LABS: Color,Urine Yellow (Yellow)
--- NOTE | 2018-03-04 21:06 | Emergency Department Note ---
Disposition Clinical Impression: Nausea vomiting and diarrhea, Dehydration, Tachycardia, Acute electrocardiogram changes, Lactic acidosis Fever Qualifiers: Fever type: unspecified Qualified Code(s): R50.9 - Fever, unspecified LLL pneumonia Qualifiers: Pneumonia type: due to unspecified organism Qualified Code(s): J18.1 - Lobar pneumonia, unspecified organism Disposition: Admitted As Inpatient Condition: Fair Referrals: Jose G Leal MD [Primary Care Provider] - Forms: ED Satisfaction Letter General Adult HPI - General Chief complaint: ED Nausea/Vomiting/Diarrhea Stated complaint: N/V/D Time Seen by Provider: 03/04/18 18:21 Source: patient, family (Son) Limitations: no limitations Nursing Notes Reviewed: Yes Vital Signs Reviewed: Yes - History of Present Illness Pain Scale: 0 - Related Data Home Medications Medication Instructions Recorded Confirmed Multivitamin [Multi-Day Vitamins] 1 each PO DAILY 01/10/16 03/04/18 Gabapentin [Neurontin] 300 mg PO QID 05/15/16 03/04/18 Insulin ASPART [NovoLOG] 0 unit SQ TIDWM 11/20/16 03/04/18 Lisinopril 2.5 mg PO DAILY 03/05/17 03/04/18 Aspirin [Adult Aspirin] 81 mg PO DAILY 03/04/18 03/04/18 Insulin Glargine,Hum.rec.anlog 20 unit SQ QPM PRN 03/04/18 03/04/18 [Basaglar Kwikpen U-100] Lovastatin 10 mg PO QPM 03/04/18 03/04/18 Metformin HCl 1,000 mg PO BID 03/04/18 03/04/18 Allergies Allergy/AdvReac Type Severity Reaction Status Date / Time No Known Allergies Allergy Verified 03/04/18 18:18 Constitutional: Reports: fever, chills, weakness ENT ED: Reports: congestion Cardiovascular: Denies: chest pain, dyspnea on exertion Respiratory: Denies: cough, dyspnea Gastrointestinal: Reports: nausea, vomiting, diarrhea. Denies: abdominal pain, hematemesis, melena, hematochezia Genitourinary: Denies: dysuria Musculoskeletal: Denies: back pain, neck pain Integumentary: Denies: rash, abrasion Neurological: Reports: weakness, confusion, abnormal gait. Denies: headache, numbness, vertigo Psychiatric: Denies: anxiety, depression Past Medical History - Past Medical History Medical history: Reports: diabetes, hyperlipidemia, hypertension, other Surgical history: Reports: other Psychiatric history: Reports: no psych history - Social History Smoking Status: Current every day smoker Smokeless Tobacco Status: No Alcohol use: Reports: occasionally Drug use: Reports: none Physical Exam - General Limitations: no limitations General appearance: alert, in no apparent distress, other (appears older than stated age, ill appearing) Course Vital Signs Temperature 100.9 F H 03/04/18 18:17 Pulse Rate 100 03/04/18 18:17 Respiratory Rate 18 03/04/18 18:17 Blood Pressure 119/65 03/04/18 18:17 O2 Sat by Pulse Oximetry 94 03/04/18 18:17 Temperature 103.1 F H 03/04/18 18:26 Pulse Rate 85 03/04/18 19:33 Respiratory Rate 20 03/04/18 19:33 Blood Pressure 122/94 03/04/18 19:33 O2 Sat by Pulse Oximetry 94 03/04/18 19:33 Oxygen Delivery Oxygen Delivery Room Air Medical Decision Making - Medical Records Medical records reviewed: Yes I reviewed the patient's medical records. - Lab Data Lab results reviewed: Yes I reviewed the patient's lab results. Result diagrams: 03/04/18 18:27 03/04/18 18:27 Lab Results 03/04/18 03/04/18 03/04/18 Range/Units 18:27 18:27 18:27 WBC 20.2 H (4.3-11.1) K/mcL RBC 4.29 (4.19-5.50) M/mcL Hgb 14.1 (12.9-16.9) g/dL Hct 41.8 (37.5-50.1) % MCV 97.4 (83.0-100.0) fL MCH 32.9 (28.0-33.3) pg MCHC 33.7 (31.6-35.5) g/dL RDW 13.1 (11.5-14.5) % Plt Count 190 (140-400) K/mcL MPV 11.3 (9.4-12.4) fL Immature Gran % 0.6 (0-4) % Seg Neutrophils % 81.5 % Lymphocytes % 5.5 % Monocytes % 12.2 % Eosinophils % 0.0 % Basophils % 0.2 % Neutrophils # 16.4 H (1.6-8.9) K/mcL Lymphocytes # 1.1 (0.6-4.6) K/mcL Monocytes # 2.5 H (0.0-1.3) K/mcL Eosinophils # 0.0 (0.0-0.6) K/mcL Basophils # 0.1 (0.0-0.2) K/mcL Sodium 129 L (136-145) mEq/L Potassium 4.2 (3.5-5.1) mEq/L Chloride 95 L (98-107) mEq/L Carbon Dioxide 21 L (23-29) mEq/L BUN 22 H (6-20) mg/dL Creatinine 1.08 (0.70-1.30) mg/dL Est GFR ( Amer) > 60 (> 60) Est GFR (Non-Af Amer) > 60 (> 60) BUN/Creatinine Ratio 20 (6-26) Glucose 276 H (70-105) mg/dL Calculated Osmolality 281 (280-300) Lactic Acid 2.3 H (0.5-2.2) mmol/L Calcium 10.1 (8.6-10.3) mg/dL Phosphorus 2.6 L (2.7-4.5) mg/dL Magnesium 1.6 (1.6-2.6) mg/dL Total Bilirubin 1.1 H (0.3-1.0) mg/dL AST 11 L (13-39) Units/L ALT 7 (7-52) Units/L Alkaline Phosphatase 70 (34-104) Units/L Troponin I 0.04 H* (< 0.04) ng/mL Serum Total Protein 7.3 (6.4-8.9) g/dL Albumin 4.0 (3.5-5.7) g/dL Globulin 3.3 (2.4-3.5) g/dL Albumin/Globulin Ratio 1.2 (1.1-2.2) Lipase < 3 L (11-82) Units/L Urine Color (Yellow) Urine Clarity (Clear) Urine pH (5.0-8.0) pH Units Ur Specific Winter (1.010-1.025) Urine Protein (Neg-Trace) mg/dL Urine Glucose (UA) (Normal) mg/dL Urine Ketones (Negative) mg/dL Urine Blood (Negative) Urine Nitrite (Negative) Urine Bilirubin (Negative) Urine Urobilinogen (Normal) mg/dL Ur Leukocyte Esterase (Negative) Urine Microscopic RBC (0-3) per hpf Urine Microscopic WBC (0-3) per hpf Ur Squamous Epith Cells (None-Few) per lpf Urine Bacteria (None-Few) per hpf Hyaline Casts (None-Few) per lpf Ur Culture Indicated? (NO) 03/04/18 Range/Units 19:36 WBC (4.3-11.1) K/mcL RBC (4.19-5.50) M/mcL Hgb (12.9-16.9) g/dL Hct (37.5-50.1) % MCV (83.0-100.0) fL MCH (28.0-33.3) pg MCHC (31.6-35.5) g/dL RDW (11.5-14.5) % Plt Count (140-400) K/mcL MPV (9.4-12.4) fL Immature Gran % (0-4) % Seg Neutrophils % % Lymphocytes % % Monocytes % % Eosinophils % % Basophils % % Neutrophils # (1.6-8.9) K/mcL Lymphocytes # (0.6-4.6) K/mcL Monocytes # (0.0-1.3) K/mcL Eosinophils # (0.0-0.6) K/mcL Basophils # (0.0-0.2) K/mcL Sodium (136-145) mEq/L Potassium (3.5-5.1) mEq/L Chloride (98-107) mEq/L Carbon Dioxide (23-29) mEq/L BUN (6-20) mg/dL Creatinine (0.70-1.30) mg/dL Est GFR ( Amer) (> 60) Est GFR (Non-Af Amer) (> 60) BUN/Creatinine Ratio (6-26) Glucose (70-105) mg/dL Calculated Osmolality (280-300) Lactic Acid (0.5-2.2) mmol/L Calcium (8.6-10.3) mg/dL Phosphorus (2.7-4.5) mg/dL Magnesium (1.6-2.6) mg/dL Total Bilirubin (0.3-1.0) mg/dL AST (13-39) Units/L ALT (7-52) Units/L Alkaline Phosphatase (34-104) Units/L Troponin I (< 0.04) ng/mL Serum Total Protein (6.4-8.9) g/dL Albumin (3.5-5.7) g/dL Globulin (2.4-3.5) g/dL Albumin/Globulin Ratio (1.1-2.2) Lipase (11-82) Units/L Urine Color Yellow (Yellow) Urine Clarity Clear (Clear) Urine pH 5.5 (5.0-8.0) pH Units Ur Specific Winter > 1.030 H (1.010-1.025) Urine Protein >=300 H (Neg-Trace) mg/dL Urine Glucose (UA) 500 H (Normal) mg/dL Urine Ketones 80 H (Negative) mg/dL Urine Blood Moderate H (Negative) Urine Nitrite Negative (Negative) Urine Bilirubin Moderate H (Negative) Urine Urobilinogen Normal (Normal) mg/dL Ur Leukocyte Esterase Trace H (Negative) Urine Microscopic RBC 5-15 H (0-3) per hpf Urine Microscopic WBC 5-15 H (0-3) per hpf Ur Squamous Epith Cells Moderate H (None-Few) per lpf Urine Bacteria None Seen (None-Few) per hpf Hyaline Casts None Seen (None-Few) per lpf Ur Culture Indicated? YES A (NO) - Radiology Data Radiology results reviewed: Yes I reviewed the patient's radiology results. Chest X-Ray 03/04/18 18:37 IMPRESSION: Left retrocardiac opacity suspicious for pneumonitis given history. D/ / Kristi Palacios MD / Krsiti Palacios MD Interpreting Provider: Kristi Palacios MD Head CT 03/04/18 18:42 IMPRESSION: Questionable loss of phoenix-white differentiation involving the posterior parietal and occipital lobes, versus artifact. If there is clinical concern for acute infarct, further evaluation with MRI is recommended. No acute intracranial hemorrhage or mass effect. D/ / Srinath Meriad MD / Srinath Merida MD Interpreting Provider: Srinath Merida MD Abdomen/Pelvis CT 03/04/18 18:50 IMPRESSION: Confluent left lower lobe pneumonia. Follow-up to complete clearing is recommended. No acute finding in the abdomen or pelvis. Calcific coronary artery disease. Bilateral renal vascular calcifications. Broad-based central disc protrusion/herniation at L3-L4 contributing to a moderate central canal stenosis. D/ / Sky Nino MD / Sky Nino MD Interpreting Provider: Sky Nino MD Critical Care Time Critical Care Time: Yes Total Critical Care Time: 40 Attestation: Critical care performed: Time is exclusive of separately billable procedures. Time includes: direct patient care, patient reassessment, coordination of patient care, interpretation of data (laboratory data, radiology data, and respiratory data), review of patient's medical records, medical consultation and documentation of patient care. Procedures included in critical care time: Procedures excluded from critical care time: Attestation Statement - Attestation Attestation: I, Perry Man MD, personally evaluated this patient and discussed their management with the resident physician. I reviewed the resident's note and agree with the documented findings, medical decision making, and plan of care. This patient was signed out at shift change from Dr. Tamayo and Dr. Holly. Please refer to their notes for complete details of the history and physical examination. Patient presented with a 4 day history of nausea and vomiting and diarrhea with chills and fever. At shift change patient is awaiting final test results and CT of the head as well as the abdomen and pelvis. On examination patient is a well-developed well-nourished male in no acute distress. He is alert and oriented 3. There is no cyanosis or diaphoresis. Breath sounds are clear and equal bilaterally. Heart regular rate and rhythm. Abdomen is soft with increased bowel sounds. Mild mid abdominal tenderness with no guarding or rebound tenderness. No CVA tenderness. Labs reviewed. WBC 20. Lactic acid 2.4. Chest x-ray showed a left retrocardiac infiltrate. CT the abdomen and pelvis showed no acute intra- abdominal abnormality but did confirm the left lower lobe consolidation. Fluids and antibiotics initiated. The hospitalist, Dr. Cueva, was consulted and accepted admission of the patient.
[2018-03-04] MEDS ORDERED: Naloxone 0.4 MG/ML INJ IVP PRN (21:22)
[2018-03-04 21:23] LABS: Hepatitis A Antibody IgM Nonreactive (Nonreactive); Hepatitis B Core IgM Nonreactive (Nonreactive); Hepatitis B Surface Antigen Nonreactive (Nonreactive); Hepatitis C Virus Antibody Nonreactive (Nonreactive)
--- NOTE | 2018-03-04 21:35 | Internal Med History&Physical ---
Date of Encounter: 03/04/18 Time of Encounter: 21:33 Internal Medicine - H&P: HPI Chief complaint: Nausea, vomiting, diarrhea History of present illness: Mr. Escobar is a 57 year old male with a past medical history of diabetes who presents with chief complaint of weakness, nausea, vomiting and diarrhea. His symptoms began about 4 days ago and have persisted since. He reports 1 episode of non-bloody nonbilious vomiting. He has been having loose stools described as nonbloody mostly watery diarrhea approximately 3-4 times a day. He reports subjective fever and chills. Patient was having chills and rigors during my initial assessment. He denies any sick contacts or antibiotic use in the past 30 days. Further denies any abdominal pain. Patient reportedly lives with his brother and son who noted the patient to be somewhat confused and unsteady on his feet and decided to bring him in. Patient has been able to drink fluids but has not eaten much over the past 4 days. He reports cough which began today that is nonproductive. He denies any shortness of breath or chest pain. He has a 40 pack smoking history and continues to smoke a pack and a half a day. Patient was noted to have a fever of 100.9 upon initial assessment in the ED. upon recheck was found to be 103.1. Noted to be mildly tachycardic with a normal blood pressure satting in the mid 90s on room air. Laboratory workup was remarkable for a elevated white blood cell count of 20.2, hyponatremia 129, lactic acid of 2.3 and mildly elevated troponin of 0.04. Imaging of the chest and abdomen revealed a confluent left lower lobe airspace disease concerning for pneumonia. EKG showed less than 1 mm depressions in the lateral leads as well as lead two with upright T-waves in lead 2 which were inverted when compared to previous EKG in January. Patient received 3 L of fluid boluses in the ED as well as a loading dose of aspirin due to his elevated troponin. Past Med Surg Social Fam HX - Past Medical History Medical history: diabetes, hyperlipidemia, hypertension, other Additional medical history: neuropathy, anemia , r foot osteomyelitis, Psychiatric history: no psych history - Past Surgical History Surgical History: other Additional surgical history: partial right foot amputation - Social History Smoking Status: Current every day smoker Smokeless Tobacco Status: No Alcohol use: occasionally Drug use: none - Family History Father Family Member Ethnicity: Non- Living Status: Hx Family Cardiac Disorders: Yes (PA, HD) Hx Family Cancer: Yes (Leukemia) Brother Family Member Ethnicity: Non- Living Status: Hx Family Cancer: Yes (Unknown) Sister Family Member Ethnicity: Non- Living Status: Hx Family Cancer: Yes (Breast, Brain) Mother Family Member Ethnicity: Non- Living Status: Hx Family Cardiac Disorders: Yes (HD) Hx Family Respiratory Disorders: Yes Hx Family Cancer: Yes (Melanoma) Hx Family GI Disorders: No Hx Family Endocrine Disorder: Yes (DM, Thyroid disease) Hx Family Neuromuscular Disorders: No Hx Family Neurologic Disorders: No Hx Family HEENT Disorders: No Hx Family Autoimmune Disorders: No Internal Medicine - H&P: Meds Multivitamin [Multi-Day Vitamins] 1 each PO DAILY 01/10/16 [History] Gabapentin [Neurontin] 300 mg PO QID 05/15/16 [History] Insulin ASPART [NovoLOG] 0 unit SQ TIDWM 11/20/16 [History] Lisinopril 2.5 mg PO DAILY 03/05/17 [History] Aspirin [Adult Aspirin] 81 mg PO DAILY 03/04/18 [History] Insulin Glargine,Hum.rec.anlog [Basaglar Kwikpen U-100] 20 unit SQ QPM PRN 03/04/18 [History] Lovastatin 10 mg PO QPM 03/04/18 [History] Metformin HCl 1,000 mg PO BID 03/04/18 [History] Allergy/AdvReac Type Severity Reaction Status Date / Time No Known Allergies Allergy Verified 03/04/18 18:18 All Systems PM: A 10-system review of systems was performed and is negative for pertinent findings except as documented above in the HPI. - Constitutional Constitutional: no chills, no fever(s), no night sweats - EENT Eyes: no change in vision, no discharge, no pain, no photophobia Ears: no ear discharge, no ear pain, no tinnitus Nose, mouth and throat: no dysphagia, no nasal discharge, no neck pain, no sore throat - Cardiovascular Cardiovascular ROS IM: no chest pain, no diaphoresis, no dyspnea, no lightheadedness, no palpitations, no syncope - Respiratory Respiratory: no cough, no dyspnea, no wheezing, no excessive phlegm production - Gastrointestinal Gastrointestinal: no abdominal pain, no diarrhea, no hematemesis, no hematochezia, no melena, no nausea, no vomiting - Musculoskeletal Musculoskeletal ROS IM: no numbness, no tingling - Integumentary Integumentary IM: no rash, no unusual bruising - Neurological Neurological ROS: no confusion, no convulsions, no focal weakness, no numbness, no tingling, no tremor(s) - Hematologic/Lymphatic Hematologic/Lymphatic: no easy bruising - Constitutional Vitals: Temp Pulse Resp BP Pulse Ox 103.1 F H 67 18 102/54 96 03/04/18 18:26 03/04/18 21:29 03/04/18 21:29 03/04/18 21:29 03/04/18 21:29 Exam: General: Alert and oriented 3; lying in bed shivering Skin:Normal color, no rash, no lesions. HEENT:EOM, pupils equal, round and reactive. Cardiovascular:Normal S1 & S2, no rubs, murmurs or gallops. No JVD. Pulse regular. Lungs: Diminished breath sounds throughout; crackles noted at the left lung base. Abdomen:Soft, non-tender, no rigidity. Extremities:No deformity, no edema or tenderness, no joint swelling or clubbing. Amputation of the right digits of the right foot. Neurological:Normal cognition and motor skills. Pulses:Carotid and radial pulses normal +2. Rest of the physical exam is non contributory Internal Med - H&P Results - Labs CBC & Chem 7: 03/05/18 06:05 03/05/18 06:05 Labs: Short CBC 03/04/18 Range/Units 18:27 WBC 20.2 H (4.3-11.1) K/mcL Hgb 14.1 (12.9-16.9) g/dL Hct 41.8 (37.5-50.1) % Plt Count 190 (140-400) K/mcL Neutrophils # 16.4 H (1.6-8.9) K/mcL BMP 03/04/18 18:27 Sodium 129 L Potassium 4.2 Chloride 95 L Carbon Dioxide 21 L BUN 22 H Creatinine 1.08 Glucose 276 H Calcium 10.1 Cardiac Enzymes 03/04/18 Range/Units 18:27 Troponin I 0.04 H* (< 0.04) ng/mL Liver Function 03/04/18 Range/Units 18:27 Total Bilirubin 1.1 H (0.3-1.0) mg/dL AST 11 L (13-39) Units/L ALT 7 (7-52) Units/L Alkaline Phosphatase 70 (34-104) Units/L Albumin 4.0 (3.5-5.7) g/dL Urine 03/04/18 Range/Units 19:36 Urine Color Yellow (Yellow) Urine Clarity Clear (Clear) Urine pH 5.5 (5.0-8.0) pH Units Ur Specific [place] > 1.030 H (1.010-1.025) Urine Protein >=300 H (Neg-Trace) mg/dL Urine Glucose (UA) 500 H (Normal) mg/dL - Impressions ITS Impressions Chest X-Ray 03/04/18 18:37 IMPRESSION: Left retrocardiac opacity suspicious for pneumonitis given history. D/ / Kristi Palacios MD / Kristi Palacios MD Interpreting Provider: Kristi Palacios MD Head CT 03/04/18 18:42 IMPRESSION: Questionable loss of phoenix-white differentiation involving the posterior parietal and occipital lobes, versus artifact. If there is clinical concern for acute infarct, further evaluation with MRI is recommended. No acute intracranial hemorrhage or mass effect. D/ / Srinath Merida MD / Srinath Merida MD Interpreting Provider: Srinath Merida MD Abdomen/Pelvis CT 03/04/18 18:50 IMPRESSION: Confluent left lower lobe pneumonia. Follow-up to complete clearing is recommended. No acute finding in the abdomen or pelvis. Calcific coronary artery disease. Bilateral renal vascular calcifications. Broad-based central disc protrusion/herniation at L3-L4 contributing to a moderate central canal stenosis. D/ / Sky Nino MD / Sky Nino MD Interpreting Provider: Sky Nino MD - Assessment and plan (1) LLL pneumonia Current Visit: Yes Status: Acute Assessment and plan: Workup revealed a left lower lobe consolidation concerning for pneumonia. Given patient's hyponatremia and GI symptoms concern for a atypical pneumonia presentation. We will continue with broad-spectrum coverage with vancomycin, Zosyn and levofloxacin for atypical coverage. A urine strep and Legionella antigen was sent as well as blood cultures. Will De-escalate antibiotic coverage once cultures return. Qualifiers: Pneumonia type: due to other aerobic Gram-negative bacteria Qualified Code(s): J15.6 - Pneumonia due to other Gram-negative bacteria (2) Sepsis Current Visit: Yes Status: Acute Assessment and plan: Patient meets sepsis criteria based on Fever of 103, tachycardia and elevated white blood cell count with left lower lobe consolidation on CT concerning for pneumonia. Given his nausea, vomiting and diarrhea this may be an atypical presentation however, cannot discount possible C. difficile. Patient currently hemodynamically stable after receiving 3 L of fluid boluses. Repeat lactic acid now within normal limits. Blood cultures as well as urine strep and Legionella antigen have been sent. C. difficile PCR testing has been ordered however patient has not had a bowel movement as of yet. We will continue patient on broad-spectrum antibiotics with vancomycin, Zosyn and levofloxacin for atypical coverage. Continue IV fluids for now. Qualifiers: Sepsis type: sepsis due to unspecified organism Qualified Code(s): A41.9 - Sepsis, unspecified organism (3) Lactic acidosis Current Visit: Yes Status: Acute Assessment and plan: Mildly elevated lactic acid of 2.4 in the setting of 4 day history of nausea vomiting and diarrhea with decreased by mouth intake. Now resolved after repeat lactic acid testing. Continue with maintenance fluids. (4) Nausea vomiting and diarrhea Current Visit: Yes Status: Acute Assessment and plan: Patient denies any further episodes of nausea or vomiting. Continues to have loose stools. C.diff ordered. Follow up results. Tinea maintenance fluids for now. (5) Tachycardia Current Visit: Yes Status: Acute Assessment and plan: Mild tachycardia in the low 100s in the setting of nausea, vomiting, diarrhea. Heart rate now back within normal limits. Will monitor (6) Troponin I above reference range Current Visit: Yes Status: Acute Assessment and plan: Mild elevation of troponin 0.04 in the setting of nausea, vomiting, diarrhea and sepsis. Patient did not report any episodes of chest pain. Likely demand ischemia. EKG shows no significant changes from previous EKG in January except for T waves in lead 2 which are now upright and were inverted in January. We will continue to trend troponin. Continue with cardiac monitoring. Patient received loading dose of aspirin. 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 (9) Stopped smoking with greater than 40 pack year history Current Visit: Yes Status: Acute Assessment and plan: NicoDerm patch (10) DVT prophylaxis Current Visit: No Status: Acute Assessment and plan: Subcutaneous heparin - Time Spent With Patient Total time spent is greater than 50% in coordination of care (as documented) at patient's floor/unit and/or counseling patient:
[2018-03-04] MEDS: 0.9 % Sodium Chloride 1,000 ML IVC SCH (22:37)
[2018-03-04] MEDS: Levofloxacin 750 MG/150 ML 750 MG/150 ML BAG IVPB SCH (22:37)
[2018-03-04] MEDS: *HR* Heparin 5,000 UNIT/ML VIAL SQ SCH (23:04)
[2018-03-05] MEDS ORDERED: *HR* Dextrose 50 % in Water (Syg) 50 ML SYRINGE IVP PRN (00:41)
[2018-03-05] MEDS ORDERED: D5% in Water 1,000 ML IVC PRN (00:41)
[2018-03-05] MEDS ORDERED: Dextrose Gel 15 GM/37.5 ML TUBE PO PRN ×2 (00:41)
[2018-03-05] MEDS: Acetaminophen 325 MG TABLET PO PRN ×4 (01:16→22:32)
[2018-03-05] MEDS: Nicotine 21 MG PATCH.TD24 TD SCH ×2 (01:16→08:55)
[2018-03-05] MEDS ORDERED: Piperacillin/Tazobactam 3.375 GM in 0.9 % Sodium Chloride Mini Bag 100 ML IVPB SCH (03:00)
[2018-03-05] MEDS ORDERED: Insulin LISPRO 300 UNITS/3 ML VIAL SQ SCH (06:00)
[2018-03-05 06:19] LABS: Basophils % 0.3 %; Hematocrit 34.8 % (37.5-50.1); Immature Granulocytes % 0.4 % (0-4); Lymphocytes # 0.8 K/mcL (0.6-4.6); Lymphocytes % 5.3 %; Mean Corpuscular HGB Conc 34.2 g/dL (31.6-35.5); Mean Corpuscular Hemoglobin 32.7 pg (28.0-33.3); Mean Corpuscular Volume 95.6 fL (83.0-100.0); Mean Platelet Volume 11.3 fL (9.4-12.4); Monocytes # 1.7 K/mcL (0.0-1.3); Monocytes % 11.7 %; Neutrophils # 11.6 K/mcL (1.6-8.9); Platelet Count 146 K/mcL (140-400); Red Blood Count 3.64 M/mcL (4.19-5.50); Red Cell Distribution Width 13.2 % (11.5-14.5); Segmented Neutrophils % 82.3 %
[2018-03-05 06:22] LABS: Hemoglobin 11.9 g/dL (12.9-16.9)
[2018-03-05 06:34] LABS: Alanine Aminotransferase 6 Units/L (7-52); Albumin/Globulin Ratio 1.3 (1.1-2.2); Alkaline Phosphatase 49 Units/L (34-104); Aspartate Amino Transferase 12 Units/L (13-39); BUN/Creatinine Ratio 19 (6-26); Bilirubin,Total 0.7 mg/dL (0.3-1.0); Blood Urea Nitrogen 14 mg/dL (6-20); Calcium 8.2 mg/dL (8.6-10.3); Carbon Dioxide 21 mEq/L (23-29); Chloride 105 mEq/L (98-107); Globulin 2.4 g/dL (2.4-3.5); Glucose 110 mg/dL (70-105); Osmolality,Calculated 275 (280-300); Potassium 3.9 mEq/L (3.5-5.1); Sodium 132 mEq/L (136-145); Total Protein 5.4 g/dL (6.4-8.9); eGFR For Non-African Americans > 60 (> 60)
[2018-03-05] MEDS: 0.9 % Sodium Chloride 1,000 ML IVC SCH (08:53)
[2018-03-05] MEDS: Multivit/Ca/Min/Fe/FA 1 TAB TABLET PO SCH (08:54)
[2018-03-05] MEDS: Aspirin Enteric Coated 81 MG Tablet PO SCH (08:54)
[2018-03-05] MEDS: *HR* Heparin 5,000 UNIT/ML VIAL SQ SCH ×2 (08:54→16:32)
[2018-03-05] MEDS: Insulin LISPRO 300 UNITS/3 ML VIAL SQ SCH ×4 (08:55→22:33)
--- NOTE | 2018-03-05 11:56 | Internal Med Progress Note ---
Hospitalist Progress Note - Encounter Date of Encounter: 03/05/18 Time of Encounter: 09:00 - Subjective Interval History: Pt is still weak, has fever, nausea. No further diarrhea overnight. Denies SOB. - Exam Vitals: Temp Pulse Resp BP Pulse Ox 98.6 F 68 18 94/51 95 03/05/18 11:32 03/05/18 11:32 03/05/18 11:32 03/05/18 11:32 03/05/18 11:32 Exam: General: Alert and oriented 3; lying in bed shivering Skin:Normal color, no rash, no lesions. HEENT:EOM, pupils equal, round and reactive. Cardiovascular:Normal S1 & S2, no rubs, murmurs or gallops. No JVD. Pulse regular. Lungs: Diminished breath sounds throughout; crackles noted at the left lung base. Abdomen:Soft, non-tender, no rigidity. Extremities:No deformity, no edema or tenderness, no joint swelling or clubbing. Amputation of the right digits of the right foot. Neurological:Normal cognition and motor skills. Pulses:Carotid and radial pulses normal +2. Rest of the physical exam is non contributory - Assessment and Plan (1) DVT prophylaxis Current Visit: No Status: Acute Assessment and Plan: Subcutaneous heparin (2) Diabetes mellitus type 2 with complications Current Visit: No Status: Chronic Assessment and Plan: Blood glucose checks; sliding scale insulin (3) Nausea vomiting and diarrhea Current Visit: Yes Status: Acute Assessment and Plan: Improved, caused by Legionella PNA. (4) LLL pneumonia Current Visit: Yes Status: Acute Assessment and Plan: Pt has fever, n/v/d, hyponatremia. Legionella Ag positive. Consistant with Legionella PNA. Denies recent hospitalization. - Cont iv levaquin, d/c vanco and zosyn. - Cont supportive and symptomatic management. (5) Lactic acidosis Current Visit: Yes Status: Acute Assessment and Plan: Mildly elevated lactic acid of 2.4 in the setting of 4 day history of nausea vomiting and diarrhea with decreased by mouth intake. Now resolved after repeat lactic acid testing. Continue with maintenance fluids. (6) Sepsis Current Visit: Yes Status: Acute Assessment and Plan: Pt meets sepsis criteria by leukocytosis, fever, tachycardia, source of infection is Legionella PNA. - Early goal directed fluid resuscitation started from ER, lactate trend down. - Cont abx, cont IVF - Closely monitor pt. (7) Troponin I above reference range Current Visit: Yes Status: Acute Assessment and Plan: Mild elevation of troponin 0.04 -0.03-0.05 in the setting of sepsis, pt denies chest pain. Most likely demand ischemia. (8) Stopped smoking with greater than 40 pack year history Current Visit: Yes Status: Acute Assessment and Plan: NicoDerm patch (9) Hyponatremia Current Visit: Yes Status: Acute Assessment and Plan: Mild asymptomatic hyponatremia of 129, most likely due to legionella infection, improved now after IV NS. - Time Spent with Patient Total time spent is greater than 50% in coordination of care (as documented) at patient's floor/unit and/or counseling patient: 30 min 25 - 35 minutes Plan of Care Discussed with: patient Internal Medicine: Result - Labs CBC & Chem 7: 03/05/18 06:05 03/05/18 06:05 Labs: Short CBC 03/04/18 03/05/18 Range/Units 18:27 06:05 WBC 20.2 H 14.1 H (4.3-11.1) K/mcL Hgb 14.1 11.9 L D (12.9-16.9) g/dL Hct 41.8 34.8 L (37.5-50.1) % Plt Count 190 146 (140-400) K/mcL Neutrophils # 16.4 H 11.6 H (1.6-8.9) K/mcL BMP 03/04/18 03/05/18 18:27 06:05 Sodium 129 L 132 L Potassium 4.2 3.9 Chloride 95 L 105 Carbon Dioxide 21 L 21 L BUN 22 H 14 Creatinine 1.08 0.72 Glucose 276 H 110 H Calcium 10.1 8.2 L Cardiac Enzymes 03/04/18 03/05/18 03/05/18 Range/Units 18:27 00:33 06:05 Troponin I 0.04 H* 0.03 0.05 H* (< 0.04) ng/mL Liver Function 03/04/18 03/05/18 Range/Units 18:27 06:05 Total Bilirubin 1.1 H 0.7 (0.3-1.0) mg/dL AST 11 L 12 L (13-39) Units/L ALT 7 6 L (7-52) Units/L Alkaline Phosphatase 70 49 (34-104) Units/L Albumin 4.0 3.0 L (3.5-5.7) g/dL Urine 03/04/18 Range/Units 19:36 Urine Color Yellow (Yellow) Urine Clarity Clear (Clear) Urine pH 5.5 (5.0-8.0) pH Units Ur Specific [place] > 1.030 H (1.010-1.025) Urine Protein >=300 H (Neg-Trace) mg/dL Urine Glucose (UA) 500 H (Normal) mg/dL - Impressions Impressions Chest X-Ray 03/04/18 18:37 IMPRESSION: Left retrocardiac opacity suspicious for pneumonitis given history. D/ / Kristi Palacios MD / Kristi Palacios MD Interpreting Provider: Kristi Palacios MD Head CT 03/04/18 18:42 IMPRESSION: Questionable loss of phoenix-white differentiation involving the posterior parietal and occipital lobes, versus artifact. If there is clinical concern for acute infarct, further evaluation with MRI is recommended. No acute intracranial hemorrhage or mass effect. D/ / Srinath Merida MD / Srinath Merida MD Interpreting Provider: Srinath Merida MD Abdomen/Pelvis CT 03/04/18 18:50 IMPRESSION: Confluent left lower lobe pneumonia. Follow-up to complete clearing is recommended. No acute finding in the abdomen or pelvis. Calcific coronary artery disease. Bilateral renal vascular calcifications. Broad-based central disc protrusion/herniation at L3-L4 contributing to a moderate central canal stenosis. D/ / Sky Nino MD / Sky Nino MD Interpreting Provider: Sky Nino MD Consult Discharge Plan - Plan Referrals: Jose G Leal MD [Primary Care Provider] - (2) Diabetes mellitus type 2 with complications Qualifiers: Diabetes mellitus nursing home insulin use: with terminal superintendent use Qualified Code(s): E11.8 - Type 2 diabetes mellitus with unspecified complications; Z79.4 - termite control servicer (current) use of insulin (4) LLL pneumonia Qualifiers: Pneumonia type: due to other aerobic Gram-negative bacteria Qualified Code(s): J15.6 - Pneumonia due to other Gram-negative bacteria (6) Sepsis Qualifiers: Sepsis type: sepsis due to unspecified organism Qualified Code(s): A41.9 - Sepsis, unspecified organism
[2018-03-05] MEDS ORDERED: Ondansetron 4 MG/2 ML VIAL IVP PRN (12:00)
[2018-03-05] MEDS ORDERED: Aminoglycoside Consult 1 EACH MC ONE (13:28)
[2018-03-05] MEDS: Levofloxacin 750 MG/150 ML 750 MG/150 ML BAG IVPB SCH (22:31)
[2018-03-06] MEDS: *HR* Heparin 5,000 UNIT/ML VIAL SQ SCH ×4 (00:45→23:34)
[2018-03-06 04:56] LABS: Basophils % 0.2 %; Eosinophils % 0.2 %; Hematocrit 37.3 % (37.5-50.1); Hemoglobin 12.3 g/dL (12.9-16.9); Immature Granulocytes % 0.5 % (0-4); Lymphocytes # 0.8 K/mcL (0.6-4.6); Lymphocytes % 7.9 %; Mean Corpuscular Hemoglobin 31.9 pg (28.0-33.3); Mean Corpuscular Volume 96.6 fL (83.0-100.0); Mean Platelet Volume 11.9 fL (9.4-12.4); Monocytes # 1.2 K/mcL (0.0-1.3); Monocytes % 12.2 %; Neutrophils # 7.8 K/mcL (1.6-8.9); Platelet Count 167 K/mcL (140-400); Red Blood Count 3.86 M/mcL (4.19-5.50); Red Cell Distribution Width 13.2 % (11.5-14.5)
[2018-03-06 05:16] LABS: BUN/Creatinine Ratio 20 (6-26); Blood Urea Nitrogen 12 mg/dL (6-20); Calcium 8.4 mg/dL (8.6-10.3); Carbon Dioxide 20 mEq/L (23-29); Chloride 105 mEq/L (98-107); Glucose 77 mg/dL (70-105); Osmolality,Calculated 275 (280-300); Potassium 3.7 mEq/L (3.5-5.1); Sodium 133 mEq/L (136-145); eGFR For Non-African Americans > 60 (> 60)
[2018-03-06] MEDS: Nicotine 21 MG PATCH.TD24 TD SCH (07:56)
[2018-03-06] MEDS: Acetaminophen 325 MG TABLET PO PRN ×3 (07:56→21:05)
[2018-03-06] MEDS: Multivit/Ca/Min/Fe/FA 1 TAB TABLET PO SCH (07:56)
[2018-03-06] MEDS: Aspirin Enteric Coated 81 MG Tablet PO SCH (07:56)
[2018-03-06] MEDS: Insulin LISPRO 300 UNITS/3 ML VIAL SQ SCH ×4 (07:57→21:06)
[2018-03-06] MEDS: Gabapentin 300 MG CAPSULE PO SCH ×2 (17:47→21:06)
--- NOTE | 2018-03-06 19:29 | Internal Med Progress Note ---
Hospitalist Progress Note - Encounter Date of Encounter: 03/06/18 Time of Encounter: 09:00 - Subjective Interval History: Pt feels better, no further N/V/D. Still has low fever, no SOB. - Exam Vitals: Temp Pulse Resp BP Pulse Ox 98.7 F 77 12 113/59 96 03/06/18 12:15 03/06/18 12:15 03/06/18 12:15 03/06/18 12:15 03/06/18 12:15 Exam: General: Alert and oriented 3; lying in bed shivering Skin:Normal color, no rash, no lesions. HEENT:EOM, pupils equal, round and reactive. Cardiovascular:Normal S1 & S2, no rubs, murmurs or gallops. No JVD. Pulse regular. Lungs: Diminished breath sounds throughout; crackles noted at the left lung base. Abdomen:Soft, non-tender, no rigidity. Extremities:No deformity, no edema or tenderness, no joint swelling or clubbing. Amputation of the right digits of the right foot. Neurological:Normal cognition and motor skills. Pulses:Carotid and radial pulses normal +2. Rest of the physical exam is non contributory - Assessment and Plan (1) DVT prophylaxis Current Visit: No Status: Acute Assessment and Plan: Subcutaneous heparin (2) Diabetes mellitus type 2 with complications Current Visit: No Status: Chronic Assessment and Plan: Blood glucose checks; sliding scale insulin (3) Nausea vomiting and diarrhea Current Visit: Yes Status: Acute (4) LLL pneumonia Current Visit: Yes Status: Acute Assessment and Plan: Legionella pneumonia. Improved after abx treament - Cont iv levaquin. (5) Sepsis Current Visit: Yes Status: Acute Assessment and Plan: Resolved after treatment. (6) Stopped smoking with greater than 40 pack year history Current Visit: Yes Status: Acute Assessment and Plan: NicoDerm patch (7) Hyponatremia Current Visit: Yes Status: Acute Assessment and Plan: Due to Legionella PNA. Improved. DVT Prophylaxis: Heparin SC - Time Spent with Patient Total time spent is greater than 50% in coordination of care (as documented) at patient's floor/unit and/or counseling patient: 30 min 25 - 35 minutes Plan of Care Discussed with: patient Internal Medicine: Result - Labs CBC & Chem 7: 03/06/18 03:39 03/06/18 03:39 Labs: Short CBC 03/06/18 Range/Units 03:39 WBC 9.9 (4.3-11.1) K/mcL Hgb 12.3 L (12.9-16.9) g/dL Hct 37.3 L (37.5-50.1) % Plt Count 167 (140-400) K/mcL Neutrophils # 7.8 (1.6-8.9) K/mcL BMP 03/06/18 03:39 Sodium 133 L Potassium 3.7 Chloride 105 Carbon Dioxide 20 L BUN 12 Creatinine 0.59 L Glucose 77 Calcium 8.4 L Consult Discharge Plan - Plan Referrals: Jose G Leal MD [Primary Care Provider] - (2) Diabetes mellitus type 2 with complications Qualifiers: Diabetes mellitus 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
[2018-03-06] MEDS: Levofloxacin 750 MG/150 ML 750 MG/150 ML BAG IVPB SCH (23:34)
[2018-03-07] MEDS: Acetaminophen 325 MG TABLET PO PRN ×4 (03:23→21:57)
[2018-03-07 03:28] LABS: Basophils % 0.2 %; Eosinophils # 0.1 K/mcL (0.0-0.6); Eosinophils % 0.6 %; Hematocrit 36.8 % (37.5-50.1); Hemoglobin 12.5 g/dL (12.9-16.9); Immature Granulocytes % 0.8 % (0-4); Lymphocytes # 0.8 K/mcL (0.6-4.6); Lymphocytes % 9.2 %; Mean Corpuscular Hemoglobin 32.5 pg (28.0-33.3); Mean Corpuscular Volume 95.6 fL (83.0-100.0); Mean Platelet Volume 11.2 fL (9.4-12.4); Monocytes # 1.4 K/mcL (0.0-1.3); Monocytes % 16.2 %; Neutrophils # 6.4 K/mcL (1.6-8.9); Platelet Count 182 K/mcL (140-400); Red Blood Count 3.85 M/mcL (4.19-5.50); Red Cell Distribution Width 12.9 % (11.5-14.5)
[2018-03-07 03:45] LABS: BUN/Creatinine Ratio 18 (6-26); Blood Urea Nitrogen 12 mg/dL (6-20); Calcium 8.4 mg/dL (8.6-10.3); Carbon Dioxide 26 mEq/L (23-29); Chloride 103 mEq/L (98-107); Glucose 175 mg/dL (70-105); Osmolality,Calculated 286 (280-300); Potassium 3.7 mEq/L (3.5-5.1); Sodium 136 mEq/L (136-145); eGFR For Non-African Americans > 60 (> 60)
[2018-03-07] MEDS: *HR* Heparin 5,000 UNIT/ML VIAL SQ SCH ×2 (08:05→16:48)
[2018-03-07] MEDS: Nicotine 21 MG PATCH.TD24 TD SCH (08:05)
[2018-03-07] MEDS: Aspirin Enteric Coated 81 MG Tablet PO SCH (08:06)
[2018-03-07] MEDS: Multivit/Ca/Min/Fe/FA 1 TAB TABLET PO SCH (08:06)
[2018-03-07] MEDS: Gabapentin 300 MG CAPSULE PO SCH ×4 (08:06→20:00)
[2018-03-07] MEDS: Insulin LISPRO 300 UNITS/3 ML VIAL SQ SCH ×4 (08:07→22:04)
--- NOTE | 2018-03-07 13:33 | Internal Med Progress Note ---
Hospitalist Progress Note - Encounter Date of Encounter: 03/07/18 Time of Encounter: 09:00 - Subjective Interval History: Pt feels better, no further N/V/D. No fever overnight, no SOB. Mild cough with clear sputum. - Exam Vitals: Temp Pulse Resp BP Pulse Ox 97.7 F 64 18 97/49 96 03/07/18 11:00 03/07/18 11:00 03/07/18 11:00 03/07/18 11:00 03/07/18 11:00 Exam: General: Alert and oriented 3; lying in bed shivering Skin:Normal color, no rash, no lesions. HEENT:EOM, pupils equal, round and reactive. Cardiovascular:Normal S1 & S2, no rubs, murmurs or gallops. No JVD. Pulse regular. Lungs: CTA, no crackles/wheezes Abdomen:Soft, non-tender, no rigidity. Extremities:No deformity, no edema or tenderness, no joint swelling or clubbing. Amputation of the right digits of the right foot. Neurological:Normal cognition and motor skills. Pulses:Carotid and radial pulses normal +2. Rest of the physical exam is non contributory - Assessment and Plan (1) DVT prophylaxis Current Visit: No Status: Acute Assessment and Plan: Subcutaneous heparin (2) Diabetes mellitus type 2 with complications Current Visit: No Status: Chronic Assessment and Plan: Blood glucose checks; sliding scale insulin (3) Nausea vomiting and diarrhea Current Visit: Yes Status: Acute Assessment and Plan: Resolved. D/T Legionella PNA (4) LLL pneumonia Current Visit: Yes Status: Acute Assessment and Plan: Legionella pneumonia. Improved after abx treament - Cont iv levaquin. (5) Sepsis Current Visit: Yes Status: Acute Assessment and Plan: Resolved after treatment. (6) Stopped smoking with greater than 40 pack year history Current Visit: Yes Status: Acute Assessment and Plan: NicoDerm patch (7) Hyponatremia Current Visit: Yes Status: Acute Assessment and Plan: Due to Legionella PNA. resolved. DVT Prophylaxis: Heparin SC - Summary of Assessment and Plan Summary of Assessment and Plan: Plan to d/c pt home tomorrow if afebrile in next 24 hours. - Time Spent with Patient Total time spent is greater than 50% in coordination of care (as documented) at patient's floor/unit and/or counseling patient: 30 min 25 - 35 minutes Plan of Care Discussed with: patient Internal Medicine: Result - Labs CBC & Chem 7: 03/07/18 03:11 03/07/18 03:11 Labs: Short CBC 03/07/18 Range/Units 03:11 WBC 8.7 (4.3-11.1) K/mcL Hgb 12.5 L (12.9-16.9) g/dL Hct 36.8 L (37.5-50.1) % Plt Count 182 (140-400) K/mcL Neutrophils # 6.4 (1.6-8.9) K/mcL BMP 03/07/18 03:11 Sodium 136 Potassium 3.7 Chloride 103 Carbon Dioxide 26 BUN 12 Creatinine 0.66 L Glucose 175 H Calcium 8.4 L Consult Discharge Plan - Plan Referrals: Jose G Leal MD [Primary Care Provider] - (2) Diabetes mellitus type 2 with complications Qualifiers: Diabetes mellitus 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
[2018-03-07] MEDS: Levofloxacin 750 MG/150 ML 750 MG/150 ML BAG IVPB SCH (22:04)
--- NOTE | 2018-03-07 22:28 | Electrocardiograph Report ---
[place] [id number] Test Date: 2018-03-04 Pat Name: Kody Escobar Department: [id number] Room: 2NE24 Gender: M Mammal Control Agent: : [id number] Requested By: Itz Tamayo Order Number: [id number] Reading MD: Layne Valentin Measurements Intervals [place] Rate: 96 P: 71 VA: 154 QRS: 2 QRSD: 107 T: 62 QT: 349 QTc: 441 Interpretive Statements Sinus rhythm Nonspecific ST T abnormality, diffuse leads Electronically Signed On 03-07-2018 22:26:25 EDT by Layne Valentin
--- NOTE | 2018-03-07 22:34 | Electrocardiograph Report ---
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
[2018-03-08] MEDS: *HR* Heparin 5,000 UNIT/ML VIAL SQ SCH ×2 (00:03→08:30)
[2018-03-08] MEDS: Acetaminophen 325 MG TABLET PO PRN ×2 (04:51→11:14)
[2018-03-08 07:32] VITALS: BP 115/58
[2018-03-08] MEDS: Insulin LISPRO 300 UNITS/3 ML VIAL SQ SCH ×2 (08:29→13:07)
[2018-03-08] MEDS: Nicotine 21 MG PATCH.TD24 TD SCH (08:30)
[2018-03-08] MEDS: Multivit/Ca/Min/Fe/FA 1 TAB TABLET PO SCH (08:30)
[2018-03-08] MEDS: Aspirin Enteric Coated 81 MG Tablet PO SCH (08:30)
[2018-03-08] MEDS: Gabapentin 300 MG CAPSULE PO SCH ×2 (08:30→13:07)
--- NOTE | 2018-03-08 10:04 | Discharge Summary ---
- NOTES TO OUTPATIENT PROVIDER Notes to Outpatient Provider: 1. 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 Qualified Code(s): E11.8 - Type 2 diabetes mellitus with unspecified complications; Z79.4 - rn long term care (current) use of insulin (3) Nausea vomiting and diarrhea Priority: Secondary Status: Acute (4) LLL pneumonia Priority: Primary Status: Acute Qualifiers: Pneumonia type: due to other aerobic Gram-negative bacteria Qualified Code(s): J15.6 - Pneumonia due to other Gram-negative bacteria (5) Sepsis Priority: Primary Status: Acute Qualifiers: Sepsis type: sepsis due to unspecified organism Qualified Code(s): A41.9 - Sepsis, unspecified organism (6) Stopped smoking with greater than 40 pack year history Priority: Secondary Status: Acute (7) Hyponatremia Priority: Primary Status: Acute Hospital course: Mr. Escobar is a 57 year old male present to ER for N/V/D with fever. Lab result shows hyponatremia. Further workup shows LLL pneumonia and legionella Ag positive. Pt was treated with levaquin IV for 4 days and his symptoms has improved. No fever over last 48 hours. Will switch to po levaquin and d/c home today. I have seen and examined pt today. Pt walked along the [address] no SOB. Mild cough. No fever. Denies N/V/D or any other complaint. Vitals stable. Will d/c him home with 5 more days of po levaquin. Discharge discussed with: patient Time spent discussing smoking cessation with patient: 3 to 10 minutes - Time Spent with Patient Total time spent providing and/or coordinating discharge services: 30 min Less than 30 minutes - Discharge Medications Prescriptions: Nicotine Patch [Nicoderm] 21 mg TD DAILY 14 Days #14 patch.[email or web address] Home Medications: Multivitamin [Multi-Day Vitamins] 1 each PO DAILY 08/31/16 [History] Gabapentin [Neurontin] 300 mg PO QID 05/15/16 [History] Insulin ASPART [NovoLOG] 0 unit SQ TIDWM 11/20/16 [History] Lisinopril 2.5 mg PO DAILY 03/05/17 [History] Aspirin [Adult Aspirin] 81 mg PO DAILY 03/04/18 [History] Insulin Glargine,Hum.rec.anlog [Basaglar Kwikpen U-100] 20 unit SQ QPM PRN 03/04/18 [History] Lovastatin 10 mg PO QPM 03/04/18 [History] Metformin HCl 1,000 mg PO BID 03/04/18 [History] Levofloxacin [Levaquin] 750 mg PO DAILY 5 Days #5 tablet 03/08/18 [Rx] Nicotine Patch [Nicoderm] 21 mg TD DAILY 14 Days #14 patch.[email or web address] 03/08/18 [Rx] Allergies/Adverse Reactions: Allergy/AdvReac Type Severity Reaction Status Date / Time No Known Allergies Allergy Verified 03/04/18 18:18 Date of admission: 03/04/18 21:22 Primary care physician: Jose G Leal Consults: 03/04/18 23:03 Consult to Nutrition [CONS] Routine Comment: Consulting Provider: NUTRITION Reason for Dietary Consult: MST Score Discharging clinician: Pascale Ugalde Anticipated date of discharge: 03/08/18 - Constitutional Vitals: Temp Pulse Resp BP Pulse Ox 98.3 F 61 20 115/58 95 03/08/18 07:26 03/08/18 07:26 03/08/18 07:26 03/08/18 07:26 03/08/18 07:26 General appearance: Present: A&O X 3, no acute distress, answers questions appropriately Exam: in NAD - Head Head exam: Present: atraumatic, normocephalic - Eye Eye exam: Present: PERRL, conjuntiva pink, sclera anicteric Pupils: Present: PERRL - Neck Neck exam general surgery: Present: supple, trachea midline. Absent: lymphadenopathy - Respiratory Respiratory exam: Present: CTAB. Absent: accessory muscle use, rales, rhonchi, wheezes - Cardiovascular Cardiovascular exam: Present: RRR, +S1, +S2. Absent: diastolic murmur, gallop, rubs, systolic murmur - GI/Abdominal GI/Abdominal exam: Present: normal bowel sounds, soft, no peritoneal signs. Absent: distended, tenderness - Extremities Exam Extremities exam: Present: warm, radial pulses palpable and symmetrical. Absent: calf tenderness, cyanotic, pedal edema - Neurological Exam Neurological exam: Present: CN II-XII intact, oriented X3, no focal deficits. Absent: pronater drift, facial droop, speech deficit - Skin Skin exam: Present: dry, intact - Patient Status Disposition: Home, Self-Care Condition: Good Functional capacity at discharge: independent ambulation Overall status at discharge: patient is back to baseline - Discharge Instructions Follow Up With: Jose G Leal MD [Primary Care Provider] - - Diet and Activity Activity: increase activity as tolerated Diet: diabetic diet
== END 2018-03-08 13:29 | disposition home or self-care (01) | DRG 720 ==
LOC: EMEROOARM 18:11 → 2NENU 18:11
PROVIDERS: ADMIT Internal Medicine; ATTEND Internal Medicine

== ENCOUNTER 2022-03-09 11:59 | Inpatient (IN) ==
[2022-03-09] MEDS ORDERED: Piperacillin/Tazobactam 3.375 GM in 0.9 % Sodium Chloride Mini Bag 100 ML IVPB ONE (12:27)
[2022-03-09] MEDS ORDERED: Ipratropium/Albuterol Neb 3 ML IH ONE (12:52)
[2022-03-09 13:17] LABS: Hematocrit 31.2 % (37.5-50.1); Hemoglobin 10.1 g/dL (12.9-16.9); Mean Corpuscular HGB Conc 32.4 g/dL (31.6-35.5); Mean Corpuscular Hemoglobin 32.8 pg (28.0-33.3); Mean Corpuscular Volume 101.3 fL (83.0-100.0); Platelet Count 184 K/mcL (140-400); Red Blood Count 3.08 M/mcL (4.19-5.50); Red Cell Distribution Width 12.8 % (11.5-14.5); White Blood Count 7.6 K/mcL (4.3-11.1)
[2022-03-09] MEDS: 0.9 % Sodium Chloride 1,000 ML IVC SCH ×2 (13:36→14:31)
[2022-03-09 13:37] LABS: INR 1.1; Prothrombin Time 12.8 Seconds (9.4-12.1)
[2022-03-09 13:38] LABS: Albumin 3.3 g/dL (3.5-5.7); Albumin/Globulin Ratio 1.7 (1.1-2.2); Bilirubin,Direct 0.2 mg/dL (0.0-0.2); Bilirubin,Indirect 0.5 mg/dL (0.0-1.0); Bilirubin,Total 0.7 mg/dL (0.3-1.0); Calcium 8.4 mg/dL (8.6-10.3); Globulin 1.9 g/dL (2.4-3.5); Magnesium 1.2 mg/dL (1.6-2.6); Phosphorous 2.7 mg/dL (2.7-4.5); Potassium 3.7 mEq/L (3.5-5.1); Total Protein 5.2 g/dL (6.4-8.9)
[2022-03-09 13:40] LABS: Activated Partial Thrombo Time 52.7 Seconds (26.0-36.0)
[2022-03-09 13:46] LABS: Troponin I 0.63 ng/mL (< 0.04)
[2022-03-09 14:01] LABS: Influenza A PCR Negative (Negative); Influenza B PCR Negative (Negative); Resp. Syncytial Virus PCR Positive (Negative); SARS-CoV-2 by PCR (In House) Negative (Negative)
[2022-03-09 14:40] LABS: Lymphocytes # 0.5 K/mcL (0.6-4.6); Monocytes # 0.6 K/mcL (0.0-1.3); Neutrophils # 6.2 K/mcL (1.6-8.9); Platelet Estimate Normal (Normal)
[2022-03-09] MEDS ORDERED: Norepinephrine 4 MG/254 ML IV.SOLN IVC ONE (16:11)
[2022-03-09] MEDS ORDERED: Naloxone 0.4 MG/ML INJ IVP PRN (16:20)
[2022-03-09] MEDS ORDERED: Dextrose Gel 15 GM/37.5 ML TUBE PO PRN ×2 (16:20)
[2022-03-09] MEDS ORDERED: D5% in Water 1,000 ML IVC PRN (16:20)
[2022-03-09] MEDS ORDERED: *HR* Dextrose 50 % in Water (Syg) 50 ML SYRINGE IVP PRN (16:20)
[2022-03-09] MEDS ORDERED: *HR* Heparin 5,000 UNIT/ML VIAL IVP ONE (16:20)
[2022-03-09] MEDS: Norepinephrine 4 MG/254 ML IV.SOLN IVC SCH ×2 (16:20→21:10)
[2022-03-09] MEDS ORDERED: *HR* Heparin 5,000 UNIT/ML VIAL IVP PRN ×2 (16:20)
[2022-03-09] MEDS ORDERED: Albuterol 2.5 MG/3 ML NEBULIZER IH PRN (16:20)
[2022-03-09] MEDS ORDERED: Vancomycin (wt based) 1,000 MG VIAL IVPB SCH (17:00)
[2022-03-09 17:48] LABS: Bilirubin,Urine Negative (Negative); Blood,Urine Negative (Negative); Clarity,Urine Clear (Clear); Color,Urine Yellow (Yellow); Glucose,Urine (UA) Normal (Normal); Ketones,Urine Negative (Negative); Leukocyte Esterase,Urine Negative (Negative); Nitrite,Urine Negative (Negative); PH,Urine 5.5 pH Units (5.0-8.0); Protein,Urine Trace mg/dL (Neg-Trace); Specific Gravity,Urine 1.022 (1.010-1.025); Urobilinogen,Urine Normal (Normal)
[2022-03-09 19:19] LABS: Heparin anti-factor XA UFH < 0.04 IU/mL (0.30-0.70); INR 1.2; Prothrombin Time 13.1 Seconds (9.4-12.1)
[2022-03-09 19:31] LABS: Hematocrit 30.6 % (37.5-50.1); Mean Corpuscular HGB Conc 32.7 g/dL (31.6-35.5); Mean Corpuscular Hemoglobin 33.4 pg (28.0-33.3); Mean Corpuscular Volume 102.3 fL (83.0-100.0); Mean Platelet Volume 11.7 fL (9.4-12.4); Platelet Count 176 K/mcL (140-400); Red Blood Count 2.99 M/mcL (4.19-5.50)
[2022-03-09] MEDS: Insulin LISPRO 300 UNITS/3 ML VIAL SUBQ SCH (19:36)
[2022-03-09] MEDS: Heparin 25,000UNIT/250ML 1/2NS 25,000 UNIT/250 ML IV.SOLN IVC SCH (21:17)
[2022-03-09] MEDS: MethylPREDNISolone 40 MG/ML VIAL IVP SCH (21:19)
[2022-03-09] MEDS: Acetaminophen 325 MG TABLET PO PRN (21:22)
[2022-03-09] MEDS: Ipratropium/Albuterol Neb 3 ML IH SCH (22:52)
[2022-03-09] MEDS ORDERED: Ringers Solution, Lactated 1,000 ML IVC ONE (23:26)
[2022-03-09 23:35] LABS: Estimated Average Glucose 146 mg/dl; Hemoglobin A1C 6.7 %
[2022-03-10] MEDS: Norepinephrine 4 MG/254 ML IV.SOLN IVC SCH (02:11)
[2022-03-10] MEDS: Insulin LISPRO 300 UNITS/3 ML VIAL SUBQ SCH ×4 (02:21→17:16)
[2022-03-10 03:41] LABS: Hemoglobin 10.8 g/dL (12.9-16.9); Mean Corpuscular HGB Conc 31.8 g/dL (31.6-35.5); Mean Platelet Volume 11.8 fL (9.4-12.4); Platelet Count 179 K/mcL (140-400); Red Blood Count 3.27 M/mcL (4.19-5.50); Red Cell Distribution Width 13.2 % (11.5-14.5)
[2022-03-10 03:57] LABS: White Blood Count 13.1 K/mcL (4.3-11.1)
[2022-03-10 03:58] LABS: Albumin 3.2 g/dL (3.5-5.7); Albumin/Globulin Ratio 1.5 (1.1-2.2); Bilirubin,Direct 0.4 mg/dL (0.0-0.2); Bilirubin,Indirect 0.5 mg/dL (0.0-1.0); Bilirubin,Total 0.9 mg/dL (0.3-1.0); Calcium 7.9 mg/dL (8.6-10.3); Globulin 2.2 g/dL (2.4-3.5); Magnesium 2.1 mg/dL (1.6-2.6); Phosphorous 5.1 mg/dL (2.7-4.5); Potassium 4.1 mEq/L (3.5-5.1); Total Protein 5.4 g/dL (6.4-8.9)
[2022-03-10] MEDS: Ipratropium/Albuterol Neb 3 ML IH SCH ×4 (03:58→21:36)
[2022-03-10 04:02] LABS: Troponin I 0.61 ng/mL (< 0.04)
[2022-03-10 04:24] LABS: Platelet Estimate Normal (Normal)
[2022-03-10 04:26] LABS: Neutrophils # 9.7 K/mcL (1.6-8.9); Toxic Vacuolation Present (Not Present)
[2022-03-10] MEDS ORDERED: Sodium Bicarbonate 75 MEQ in 0.45 % Sodium Chloride 1,000 ML IVC SCH ×2 (04:45→16:25)
[2022-03-10] MEDS: MethylPREDNISolone 40 MG/ML VIAL IVP SCH ×2 (05:51→17:17)
[2022-03-10 06:05] LABS: A.calcoaceticus-baumannii cplx Not Detected (Not Detect); Bacteroides fragilis by PCR Not Detected (Not Detect); Candida albicans by PCR Not Detected (Not Detect); Candida auris by PCR Not Detected (Not Detect); Candida glabrata by PCR Not Detected (Not Detect); Candida krusei by PCR Not Detected (Not Detect); Candida parapsilosis by PCR Not Detected (Not Detect); Candida tropicalis by PCR Not Detected (Not Detect); Crypto. neoformans/gattii PCR Not Detected (Not Detect); Enterobacter cloacae Cmplx PCR Not Detected (Not Detect); Enterobacterales by PCR Not Detected (Not Detect); Enterococcus faecalis by PCR Not Detected (Not Detect); Enterococcus faecium by PCR Not Detected (Not Detect); Escherichia coli by PCR Not Detected (Not Detect); Klebs. pneumoniae group by PCR Not Detected (Not Detect); Klebsiella aerogenes by PCR Not Detected (Not Detect); Klebsiella oxytoca by PCR Not Detected (Not Detect); Proteus by PCR Not Detected (Not Detect); Pseudomonas aeruginosa by PCR Not Detected (Not Detect); Salmonella species by PCR Not Detected (Not Detect); Serratia marcescens by PCR Not Detected (Not Detect); Staph epidermidis by PCR Not Detected (Not Detect); Staph lugdunensis by PCR Not Detected (Not Detect); Staphylococcus aureus by PCR Not Detected (Not Detect); Staphylococcus by PCR Not Detected (Not Detect); Stenotrophomonas maltophilia Not Detected (Not Detect); Streptococcus agalactiae(B)PCR Not Detected (Not Detect); Streptococcus pneumoniae PCR DETECTED (Not Detect); Streptococcus pyogenes (A) PCR Not Detected (Not Detect)
[2022-03-10] MEDS: Aspirin Enteric Coated 81 MG Tablet PO SCH (10:03)
[2022-03-10 10:44] LABS: ABG Base Excess -10 mEq/L (-2 to 3); ABG HCO3 15 mEq/L (21-27); ABG Oxygen Saturation 86 % (95-98); ABG PCO2 30 mmHg (35-45); ABG PO2 55 mmHg (85-104); ABG TCO2 16 mEq/L (20-26)
[2022-03-10] MEDS: cefTRIAXone 2,000 MG in 0.9 % Sodium Chloride 20 ML IVP SCH (12:51)
[2022-03-10 19:17] LABS: Streptococcus by PCR Not Detected (Not Detect)
[2022-03-10] MEDS: Acetaminophen 325 MG TABLET PO PRN (19:48)
[2022-03-10] MEDS ORDERED: Piperacillin/Tazobactam 3.375 GM in 0.9 % Sodium Chloride Mini Bag 100 ML IVPB SCH (21:00)
[2022-03-10] MEDS ORDERED: *HR* OxyCODONE/APAP 5/325 TABLET PO PRN (22:05)
[2022-03-10] MEDS ORDERED: *HR* Alteplase (Cathflo) 2 MG VIAL IVP ONE (22:16)
[2022-03-10] MEDS: *HR* OxyCODONE/APAP 10/325 TABLET PO PRN (23:56)
[2022-03-10] MEDS: Heparin 25,000UNIT/250ML 1/2NS 25,000 UNIT/250 ML IV.SOLN IVC SCH (23:58)
[2022-03-11] MEDS: Insulin LISPRO 300 UNITS/3 ML VIAL SUBQ SCH ×4 (00:01→17:02)
[2022-03-11] MEDS: Norepinephrine 4 MG/254 ML IV.SOLN IVC SCH (02:58)
[2022-03-11] MEDS: Ipratropium/Albuterol Neb 3 ML IH SCH ×3 (03:36→15:36)
[2022-03-11] MEDS: *HR* OxyCODONE/APAP 10/325 TABLET PO PRN ×2 (04:16→12:22)
[2022-03-11] MEDS: MethylPREDNISolone 40 MG/ML VIAL IVP SCH (04:16)
[2022-03-11 04:49] LABS: Hemoglobin 10.8 g/dL (12.9-16.9); Mean Corpuscular Volume 101.5 fL (83.0-100.0); Red Cell Distribution Width 12.9 % (11.5-14.5)
[2022-03-11 04:51] LABS: Hematocrit 33.3 % (37.5-50.1); Mean Corpuscular HGB Conc 32.4 g/dL (31.6-35.5); Mean Corpuscular Hemoglobin 32.9 pg (28.0-33.3); Mean Platelet Volume 11.7 fL (9.4-12.4); Platelet Count 160 K/mcL (140-400); Red Blood Count 3.28 M/mcL (4.19-5.50); White Blood Count 25.3 K/mcL (4.3-11.1)
[2022-03-11 05:22] LABS: Alanine Aminotransferase 38 Units/L (7-52); Albumin 3.4 g/dL (3.5-5.7); Albumin/Globulin Ratio 1.4 (1.1-2.2); Alkaline Phosphatase 44 Units/L (34-104); Aspartate Amino Transferase 78 Units/L (13-39); BUN/Creatinine Ratio 43 (6-26); Bilirubin,Indirect 0.6 mg/dL (0.0-1.0); Bilirubin,Total 0.6 mg/dL (0.3-1.0); Blood Urea Nitrogen 40 mg/dL (6-20); Calcium 8.1 mg/dL (8.6-10.3); Carbon Dioxide 22 mEq/L (23-29); Chloride 108 mEq/L (98-107); Chol/HDL Ratio 2.7 (0-4.9); Cholesterol 79 mg/dL (< 200); Globulin 2.4 g/dL (2.4-3.5); Glucose 104 mg/dL (70-105); HDL Cholesterol 29 mg/dL (40-59); LDL Cholesterol,Calculated 35 mg/dL (< 100); Magnesium 2.3 mg/dL (1.6-2.6); Osmolality,Calculated 298 (280-300); Phosphorous 2.7 mg/dL (2.7-4.5); Potassium 4.5 mEq/L (3.5-5.1); Sodium 139 mEq/L (136-145); Total Protein 5.8 g/dL (6.4-8.9); Triglycerides 75 mg/dL (< 150)
[2022-03-11 07:07] LABS: Neutrophils # 22.3 K/mcL (1.6-8.9); Platelet Estimate Normal (Normal)
[2022-03-11 07:08] LABS: Anisocytosis 1+ (Not Present)
[2022-03-11] MEDS: Acetaminophen 325 MG TABLET PO PRN (08:15)
[2022-03-11] MEDS: Aspirin Enteric Coated 81 MG Tablet PO SCH (08:16)
[2022-03-11] MEDS: cefTRIAXone 2,000 MG in 0.9 % Sodium Chloride 20 ML IVP SCH (11:43)
[2022-03-11] MEDS ORDERED: lisinopriL 5 MG TABLET PO SCH (12:45)
[2022-03-11] MEDS ORDERED: *HR* Heparin 5,000 UNIT/ML VIAL IVP PRN ×2 (19:34)
[2022-03-11] MEDS ORDERED: *HR* OxyCODONE/APAP 10/325 TABLET PO PRN (19:34)
[2022-03-11] MEDS ORDERED: D5% in Water 1,000 ML IVC PRN (19:34)
[2022-03-11] MEDS ORDERED: Heparin 25,000UNIT/250ML 1/2NS 25,000 UNIT/250 ML IV.SOLN IVC SCH (19:34)
[2022-03-11] MEDS ORDERED: *HR* OxyCODONE/APAP 5/325 TABLET PO PRN (19:34)
[2022-03-11] MEDS ORDERED: Albuterol 2.5 MG/3 ML NEBULIZER IH PRN (19:34)
[2022-03-11] MEDS ORDERED: Dextrose Gel 15 GM/37.5 ML TUBE PO PRN ×2 (19:34)
[2022-03-11] MEDS ORDERED: Naloxone 0.4 MG/ML INJ IVP PRN (19:34)
[2022-03-11] MEDS ORDERED: *HR* Dextrose 50 % in Water (Syg) 50 ML SYRINGE IVP PRN (19:34)
[2022-03-11] MEDS ORDERED: Ipratropium/Albuterol Neb 3 ML ONE (19:43)
[2022-03-11 19:57] VITALS: TEMP 98.2
[2022-03-11] MEDS ORDERED: Insulin LISPRO 300 UNITS/3 ML VIAL SUBQ SCH ×2 (21:00)
[2022-03-11 21:18] VITALS: BP 112/57; PULSE 81; O2SAT 93
[2022-03-11] MEDS ORDERED: Ipratropium/Albuterol Neb 3 ML IH SCH (22:00)
[2022-03-11] MEDS ORDERED: *HR* Heparin 5,000 UNIT/ML VIAL IVP ONE (23:58)
[2022-03-12] MEDS ORDERED: Insulin LISPRO 300 UNITS/3 ML VIAL SUBQ SCH (07:30)
[2022-03-12] MEDS ORDERED: lisinopriL 5 MG TABLET PO SCH (09:00)
[2022-03-12] MEDS ORDERED: Aspirin Enteric Coated 81 MG Tablet PO SCH (09:00)
[2022-03-12] MEDS ORDERED: cefTRIAXone 2,000 MG in 0.9 % Sodium Chloride 20 ML IVP SCH (09:00)
[2022-03-12] MEDS ORDERED: Metoprolol XL (24 HR) Succ 25 MG TAB.ER.24H PO SCH ×2 (09:00)
== END 2022-03-11 23:59 | disposition other institution (70) | DRG 871 ==
LOC: EMEROOARM 11:59 → ICNU 16:23 → 2NENU 03-11 17:31
PROVIDERS: ADMIT Pediatrics; ATTEND Pediatrics